=== PATIENT | female | born 1960 | race Caucasian/White ===

== ENCOUNTER 2018-03-09 11:54 | Emergency (ER) | payer SELFPAY ==
[~2018-03-09] VITALS: Ht 167.6 cm; Wt 77.1 kg
[~2018-03-09 11:54] MED LIST: PROM25SU10 PR; PROP1TAB77 PO; TAGAMET; TRM50T PO
--- OUTSIDE RECORDS SUMMARY | 2018-03-09 11:58 | XMS REPORT ---
Author Author SHAYLA SCHULTZ Organization [facility] Address Unknown Care Team Providers Care Mac Developer Name Role Phone SIMON SCHULTZLEY Unavailable PROBLEMS Type Condition ICD9-CM Code IMF50-NP Code Onset Dates Condition Status SNOMED Code Problem Non compliance w medication regimen Z91.14 Active 496306839 Problem Non-compliant behavior R46.89 Active 231379764 Problem Tobacco abuse counseling Z71.6 Active 195149280 Problem Tobacco abuse Z72.0 Active 390088239 Problem Elevated LDL cholesterol level E78.00 Active 717221033 Problem Essential hypertension I10 Active 40286878 Problem Methamphetamine abuse F15.10 Active 950323651 Problem Hep C w/o coma, chronic B18.2 Active 910898722 ALLERGIES No Information ENCOUNTERS Encounter Location Date Diagnosis [facility] [address] [id number] Jan, [facility] [address] [address] Dec, [facility] [address] [id number] Nov, Dental examination Z01.20 [facility] [address] [id number] Oct, Dental examination Z01.20 [facility] [address] [id number] Oct, Dental examination Z01.20 [facility] [address] [address] Oct, [facility] [address] [address] July, Contact dermatitis, unspecified contact dermatitis type, unspecified trigger L25.9 [facility] [id number] [place] [address] 66125- 6167 Jun, Pre-diabetes R73.03 [place] [address] [address]- [address] Jun, Essential hypertension I10 ; Pre-diabetes R73.03 ; Elevated LDL cholesterol level E78.00 ; Hep C w/o coma, chronic B18.2 ; Non-compliant behavior R46.89 ; Methamphetamine abuse F15.10 ; Tobacco abuse Z72.0 ; Tobacco abuse counseling Z71.6 and Non compliance w medication regimen Z91.14 [place] [address] [address]- 9643 Mar, [place] [id number] [place] [address] 73443- 2526 Nov, [facility] [id number] [place] [address]51 -1548 July, Allergic contact dermatitis due to plants, except food L23.7 [place] [address] 60[address]- 0827 July, Essential hypertension I10 ; Pre-diabetes R73.03 and Elevated LDL cholesterol level E78.00 [place] [id number] [place] [address] 59181- 9241 May, [place] [id number] [place] [address] 14170- 6487 Apr, [facility] [id number] [place] [address] 71594- 7538 Mar, History of hypertension Z86.79 ; History of hepatitis Z86.19 ; Substance abuse F19.10 ; Non compliance w medication regimen Z91.14 and Non-compliant behavior R46.89 [place] [id number] [place] [address] 90918- 3048 Feb, Pre-diabetes R73.09 [place] [address] 43304- 7588 Feb, Bacterial conjunctivitis of right eye H10.9 [facility] [id number] [place] [address] 77535- 4698 Jun, Pre-diabetes R73.09 ; History of hepatitis Z86.19 and Substance abuse F19.10 [facility] [id number] [place] [address] 60901- 8120 Jun, [facility] [address] 04780- 5252 Jun, Routine health maintenance Z00.00 [place] [address] 29962- 4135 30 May, 2015 [facility] [id number] [place] [address] 51217- 9052 17 May, 2015 History of hypertension Z86.79 ; History of hepatitis Z86.19 and Illicit drug use F19.90 [facility] [id number] [place] [address] 68162- 9242 10 May, 2015 Routine health maintenance Z00.00 ; History of gestational diabetes Z86.32 ; History of hypertension Z86.79 ; History of hepatitis Z86.19 [address] F19[address]10 [facility] [id number] [place] [id number] Nov, Dental examination V72.2 [facility] [address] [id number] Nov, Encounter for dental examination V72.2 [facility] [id number] [place] [address] 63445- 9045 24 Aug, 2014 Routine gynecological examination V72.31 ; Pap test, as part of routine gynecological examination V76.2 ; Screen for STD (sexually transmitted disease) V74.5 ; Breast cancer screening V76.10 ; Vaginal odor 625.8 and Tobacco abuse 305.1 [facility] [id number] [place] [address] 43634- 4147 16 Aug, 2014 Vaginal discharge 623.5 and Vaginal odor 625.8 [facility] [place] [facility] [address] [id number] [place] [address]- 9795 Aug, [facility] [place] [facility] [address] [id number] [place] [address] 8[address] Jun, [facility] [place] [facility] [address] [facility] [id number] [place] [address]- 8940 Jun, [facility] [place] [facility] [address] [id number] [place] [address] 9585 Mar, [facility] [place] [facility] [address] [id number] [place] [address]- 6775 Mar, [facility] [place] [facility] [address] [id number] [place] [address]- 2103 Oct, [facility] [place] [facility] [address] [id number] [place] [address] 9650 Sep, [facility] [place] [facility] [address] [id number] [place] [address]- 7802 Sep, [facility] [place] [facility] [address] [id number] [place] [address]- 7539 Aug, [facility] [place] [facility] [address] [facility] [id number] [place] [address]- 8047 Aug, [facility] [place] [facility] [address] [id number] [place] [address]- 3758 Aug, [facility] [place] [facility] [address] [facility] [id number] [place] [id number] Aug, [facility] [place] [facility] [address] [id number] [place] [address]- 8415 Aug, [facility] [place] [facility] [address] [facility] [id number] [place] [address]- 0864 Aug, [facility] [place] [facility] [address] [id number] [place] [address]- 7385 Aug, [facility] [place] [facility] [address] [id number] [place] [address]- 7897 17 Aug, 2013 [facility] [address] [id number] [place] [address]- 8138 17 Aug, 2013 [facility] [place] [facility] [address] [id number] [place] [address]- 4159 Aug, [facility] [address] [id number] [place] [address]- 6568 Aug, [facility] [place] [facility] [address] [id number] [place] [address]- 7711 Aug, [facility] [address] [id number] [place] [address]- 4104 Aug, [facility] [place] [facility] [address] [id number] [place] [address]- 7487 Aug, [facility] [place] [facility] [address] [id number] [place] [address]- 1190 July, [facility] [address] [id number] [place] [address]- 5422 July, [facility] [place] [facility] [address] [id number] [place] [address]- 0586 July, [facility] [address] [id number] [place] [address]- 8280 July, [facility] [place] [facility] [address] [id number] [place] [address]- 7525 July, [facility] [place] [facility] [address] [id number] [place] [address]- 0077 Apr, [facility] [place] [facility] [address] [id number] [place] [address]- 2358 Feb, [facility] [place] [facility] [address] [id number] [place] [address]- 3776 Feb, [facility] [place] [facility] [address] [id number] [place] [address]- 3552 Jan, [facility] [address] [facility] [id number] [place] [address]- 0842 Jan, [facility] [address] [facility] [id number] [place] [address]- 4116 Aug, [facility] [address] [facility] [id number] [place] [address]- 8694 Jun, [facility] [address] [facility] [id number] [place] [address]853 Jun, IMMUNIZATIONS No Known Immunizations SOCIAL HISTORY Never Assessed REASON FOR VISIT Requested referral PLAN OF CARE VITAL SIGNS MEDICATIONS Unknown Medications RESULTS No Results PROCEDURES No Known procedures INSTRUCTIONS MEDICATIONS ADMINISTERED No Known Medications MEDICAL (GENERAL) HISTORY Type Description Date Medical History hepatitis A, B, C Medical History anxiety Medical History bipolar disorder Medical History anemia Medical History gestational diabetes Medical History drug abuse Medical History Hyperopia, bilateral Medical History Presbyopia OU Medical History Vitreous floaters of both eyes Medical History Myopia of both eyes Medical History Astigmatism, bilateral Medical History 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
--- OUTSIDE RECORDS SUMMARY | 2018-03-09 11:58 | XMS REPORT ---
Author Author JOHN DUARTE [facility] Address [address] [place] [address] Phone Unavailable Care Team Providers Care Vacuum Spindle Sander Name Role Phone JOHN DUARTE Unavailable Unavailable PROBLEMS Type Condition ICD9-CM Code RLY10-TW Code Onset Dates Condition Status SNOMED Code Problem Non compliance w medication regimen Z91.14 Active 672139275 Problem Non-compliant behavior R46.89 Active 035075818 Problem Tobacco abuse counseling Z71.6 Active 260828472 Problem Tobacco abuse Z72.0 Active 439307241 Problem Elevated LDL cholesterol level E78.00 Active 363197694 Problem Essential hypertension I10 Active 29537732 Problem Methamphetamine abuse F15.10 Active 684983354 Problem Hep C w/o coma, chronic B18.2 Active 910777946 ALLERGIES No Known Allergies ENCOUNTERS Encounter Location Date Diagnosis [facility] [id number] [place] [id number] Nov, [facility] [address] [id number] Oct, Dental examination Z01.20 [facility] [id number] [place] [address] [id number] Oct, Dental examination Z01.20 [facility] [id number] [place] [address] 73531- 8295 Oct, [facility] [id number] [place] [address] 69874 -4791 July, Contact dermatitis, unspecified contact dermatitis type, unspecified trigger L25.9 [facility] [id number] [place] [address] 32525- 0698 Jun, Pre-diabetes R73.03 [facility] [id number] [place] [address] 35888- 6819 Jun, Essential hypertension I10 ; Pre-diabetes R73.03 ; Elevated LDL cholesterol level E78.00 ; Hep C w/o coma, chronic B18.2 ; Non-compliant behavior R46.89 ; Methamphetamine abuse F15.10 ; Tobacco abuse Z72.0 ; Tobacco abuse counseling Z71.6 and Non compliance w medication regimen Z91.14 [facility] [id number] [place] [address] 87652- 3660 Mar, [place] [id number] [place] [address] 37431- 9855 Nov, [facility] [id number] [place] [address] 97289 -5587 July, Allergic contact dermatitis due to plants, except food L23.7 [place] [id number] [place] [address] 41832- 5444 July, Essential hypertension I10 ; Pre-diabetes R73.03 and Elevated LDL cholesterol level E78.00 [place] [id number] [place] [address] 26265- 2863 May, [place] [address] [address]39- 3135 Apr, [facility] [id number] [place] [address] 87041- 3908 Mar, History of hypertension Z86.79 ; History of hepatitis Z86.19 ; Substance abuse F19.10 ; Non compliance w medication regimen Z91.14 and Non-compliant behavior R46.89 [place] [id number] [place] [address] 52461- 7112 Feb, Pre-diabetes R73.[address] [address]- 8886 Feb, Bacterial conjunctivitis of right eye H10.9 [place] [id number] [place] [address] 62067- 3137 Jun, Pre-diabetes R73.09 ; History of hepatitis Z86.19 and Substance abuse F19.10 [facility] [address] [address]- 7660 20 Jun, 2015 [facility] [address] [place] [address] 31725- 5681 18 Jun, 2015 Routine health maintenance Z00.00 [facility] [address] [place] [address] 86708- 0530 30 May, 2015 [facility] [id number] [place] [address] 31355- 5342 17 May, 2015 History of hypertension Z86.79 ; History of hepatitis Z86.19 and Illicit drug use F19.90 [facility] [address] [place] [address] 23962- 4189 10 May, 2015 Routine health maintenance Z00.00 ; History of gestational diabetes Z86.32 ; History of hypertension Z86.79 ; History of hepatitis Z86.19 and Substance abuse F19.10 [facility] [address] [place] [address] [id number] 30 Nov, 2014 Dental examination V72.2 [facility] [id number] [place] [address] [id number] 30 Nov, 2014 Encounter for dental examination V72.2 [facility] [address] [place] [address] 30590- 4992 24 Aug, 2014 Routine gynecological examination V72.31 ; Pap test, as part of routine gynecological examination V76.2 ; Screen for STD (sexually transmitted disease) V74.5 ; Breast cancer screening V76.10 ; Vaginal odor 625.8 and Tobacco abuse 305.1 [facility] [address] [place] [address] 02811- 0133 16 Aug, 2014 Vaginal discharge 623.5 and Vaginal odor 625.8 [facility] [address] [place] [address] 29679- 8795 12 Aug, 2014 [facility] [id number] [place] [address] 29197- 7767 Jun, [facility] [place] [facility] [address] [id number] [place] [address]- 1712 Jun, [facility] [place] [facility] [address] [id number] [place] [address]- 0241 Mar, [facility] [place] [facility] [address] [id number] [place] [address]- 9056 Mar, [facility] [place] [facility] [address] [id number] [place] [address]- 5212 Oct, [facility] [place] [facility] [address] [id number] [place] [address]- 6682 Sep, [facility] [place] [facility] [address] [id number] [place] [address]- 4072 Sep, [facility] [place] [facility] [address] [id number] [place] [address]- 3910 Aug, [facility] [place] [facility] [address] [id number] [place] [address]- 7014 Aug, [facility] [place] [facility] [address] [id number] [place] [address]- 3743 Aug, [facility] [place] [facility] [address] [facility] [id number] [place] [id number] Aug, [facility] [place] [facility] [address] [id number] [place] [address]- 4502 Aug, [facility] [place] [facility] [address] [id number] [address]- 4052 Aug, [facility] [place] [facility] [address] [id number] [place] [address]- 3534 Aug, [facility] [place] [facility] [address] [id number] [place] [address]- 3899 Aug, [facility] [place] [facility] [address] [id number] [place] [address]- 2440 Aug, [facility] [place] [facility] [address] [id number] [place] [address]- 4260 13 Aug, 2013 [facility] [place] [facility] [address] [id number] [place] [address]- 9525 13 Aug, 2013 [facility] [place] [facility] [address] [id number] [place] [address]- 2528 10 Aug, 2013 [facility] [place] [facility] [address] [id number] [place] [address]- 6431 07 Aug, 2013 [facility] [place] [facility] [address] [id number] [place] [address]- 4383 07 Aug, 2013 [facility] [place] [facility] [address] [id number] [place] [address]- 3761 July, [facility] [place] [facility] [address] [id number] [place] [address]- 7190 July, [facility] [place] [facility] [address] [id number] [place] [address]- 0171 July, [facility] [place] [facility] [address] [id number] [place] [address]- 1709 July, [facility] [place] [facility] [address] [id number] [place] [address]- 9434 July, [facility] [place] [facility] [address] [id number] [place] [address]- 5327 Apr, [facility] [place] [facility] [address] [id number] [place] [address]- 3702 Feb, [facility] [place] [facility] [address] [id number] [place] [address]- 7297 Feb, [facility] [place] [facility] [address] [id number] [place] [address]- 1010 Jan, [facility] [place] [facility] [address] [id number] [place] [address]- 7726 Jan, [facility] [place] [facility] [address] [id number] [place] [address]- 3092 05 Aug, 2011 [facility] [address] [facility] [id number] [place] [address]- 0169 Jun, [facility] [address] [facility] [id number], [place] [address]- 5977 Jun, IMMUNIZATIONS No Known Immunizations SOCIAL HISTORY Never Assessed REASON FOR VISIT PROPHY PLAN OF CARE Activity Details Follow Up marisol Reason:restore VITAL SIGNS MEDICATIONS Medication Instructions Dosage Frequency Start Date End Date Duration Status MetFORMIN HCl ER 500 mg Orally twice a day one tablet with meal twice daily 12h 30 Active RESULTS No Results PROCEDURES Procedure Date Ordered Result Body Site COMP ORAL EVALUATION - NEW/EST PT Oct 18, 2017 Periodontal scaling and root Oct 18, 2017 Periodontal scaling and root Oct 18, 2017 Periodontal scaling and root Oct 18, 2017 Periodontal scaling and root Oct 18, 2017 INSTRUCTIONS MEDICATIONS ADMINISTERED No Known Medications MEDICAL [...]
--- OUTSIDE RECORDS SUMMARY | 2018-03-09 11:58 | XMS REPORT ---
Author Author DEANN FOSTER Organization [facility] Address [address] [place] [address] Care Team Providers Care Salon Supervisor Name Role Phone KRISTIN DEANN Unavailable PROBLEMS Type Condition ICD9-CM Code [id number] Code Onset Dates Condition Status SNOMED Code Problem Non compliance w medication regimen Z91.14 Active 180837104 Problem Non-compliant behavior R46.89 Active 423954694 Problem Tobacco abuse counseling Z71.6 Active 578392851 Problem Tobacco abuse Z72.0 Active 663131129 Problem Elevated LDL cholesterol level E78.00 Active 234824287 Problem Essential hypertension I10 Active 29118965 Problem Methamphetamine abuse F15.10 Active 210979105 Problem Hep C w/o coma, chronic B18.2 Active 738371711 ALLERGIES No Information ENCOUNTERS Encounter Location Date Diagnosis [facility] [address] [address] Dec, [facility] [address] [address] Dec, [facility] [address] [id number] Nov, Dental examination Z01.20 [facility] [address] [id number] Oct, Dental examination Z01.20 [facility] [address] [id number] Oct, Dental examination Z01.20 [facility] [address] [address] Oct, [facility] [id number] [place] [address] July, Contact dermatitis, unspecified contact dermatitis type, unspecified trigger L25.9 [facility] [id number] [place] [address] 56807- 3988 Jun, Pre-diabetes R73.03 [facility] [id number] [place] [address] 23557- 3949 Jun, Essential hypertension I10 ; Pre-diabetes R73.03 ; Elevated LDL cholesterol level E78.00 ; Hep C w/o coma, chronic B18.2 ; Non-compliant behavior R46.89 ; Methamphetamine abuse F15.10 ; Tobacco abuse Z72.0 ; Tobacco abuse counseling Z71.6 and Non compliance w medication regimen Z91.14 [place] [address] [address] Mar, [place] [address] [address] Nov, [facility] [address] [address] July, Allergic contact dermatitis due to plants, except food L23.7 [place] [address] [address] July, Essential hypertension I10 ; Pre-diabetes R73.03 and Elevated LDL cholesterol level E78.00 [facility] [id number] [place] [address]- 0077 May, [place] [address] [address] Apr, [facility] [address] [address] Mar, History of hypertension Z86.79 ; History of hepatitis Z86.19 ; Substance abuse F19.10 ; Non compliance w medication regimen Z91.14 and Non-compliant behavior R46.89 [facility] [id number] [place] [address]93- 3854 Feb, Pre-diabetes R73.09 [facility] [id number] [place] [address] 30572- 8711 15 Feb, 2016 Bacterial conjunctivitis of right eye H10.9 [place] [address] [address]- [address] 26 Jun, 2015 Pre-diabetes R73.09 ; History of hepatitis Z86.19 and Substance abuse F19.10 [place] [address] [address]- 7994 20 Jun, 2015 [place] [id number] [place] [address] 58485- 2909 18 Jun, 2015 Routine health maintenance Z00.00 [place] [address] [address] 30 May, 2015 [place] [address] [address]42- 9752 17 May, 2015 History of hypertension Z86.79 ; History of hepatitis Z86.19 and Illicit drug use F19.90 [place] [id number] [place] [address] 83750- 3117 10 May, 2015 Routine health maintenance Z00.00 ; History of gestational diabetes Z86.32 ; History of hypertension Z86.79 ; History of hepatitis Z86.19 and Substance abuse F19.10 [facility] [id number] [place] [id number] Nov, Dental examination V72.2 [facility] [address] [id number] Nov, Encounter for dental examination V72.2 [place] [address] [address] 8[address] Aug, Routine gynecological examination V72.31 ; Pap test, as part of routine gynecological examination V76.2 ; Screen for STD (sexually transmitted disease) V74.5 ; Breast cancer screening V76.10 ; Vaginal odor 625.8 and Tobacco abuse 305.1 [place] [address] [place] [address] 16 Aug, 2014 Vaginal discharge 623.5 and Vaginal odor 625.8 [facility] [place] [facility] [address] [id number] [place] [address] Aug, [facility] [place] [facility] [address] [id number] [place] [address] 57[address] Jun, [facility] [place] [facility] [address] [id number] [place] [address]- 7311 Jun, [facility] [place] [facility] [address] [id number] [place] [address]- 5179 Mar, [facility] [place] [facility] [address] [id number] [place] [address] 7490 Mar, [facility] [place] [facility] [address] [id number] [place] [address] Oct, [facility] [place] [facility] [id number] [place] [address] 08[address] Sep, [facility] [place] [facility] [address] [id number] [place] [address]- 6205 Sep, [facility] [place] [facility] [address] [address] Aug, [facility] [place] [facility] [address] [id number] [place] [address] 8092 Aug, [facility] [place] [facility] [address] [id number] [address] 289[address] Aug, [facility] [place] [facility] [address] [id number] [place] [id number] Aug, [facility] [place] [facility] [address] [facility] [id number] [place] [address]- 8872 Aug, [facility] [place] [facility] [address] [facility] [id number] [place] [address]- 7586 Aug, [facility] [place] [facility] [address] [id number] [place] [address]- 6773 24 Aug, 2013 [facility] [place] [facility] [address] [id number] [place] [address]- 9691 17 Aug, 2013 [facility] [place] [facility] [address] [id number] [place] [address]- 1860 17 Aug, 2013 [facility] [place] [facility] [address] [id number] [place] [address]- 2795 Aug, [facility] [place] [facility] [address] [id number] [place] [address]- 2748 Aug, [facility] [place] [facility] [address] [id number] [place] [address]- 1811 Aug, [facility] [place] [facility] [address] [id number] [place] [address]- 1769 Aug, [facility] [place] [facility] [address] [id number] [place] [address]- 5486 Aug, [facility] [place] [facility] [address] [id number] [place] [address]- 9031 July, [facility] [place] [facility] [address] [id number] [place] [address]- 6989 July, [facility] [place] [facility] [address] [id number] [place] [address]- 7164 July, [facility] [place] [facility] [address] [id number] [place] [address]- 7694 July, [facility] [place] [facility] [address] [id number] [place] [address]- 0867 July, [facility] [place] [facility] [address] [id number] [place] [address]- 3363 Apr, [facility] [place] [facility] [address] [id number] [place] [address]- 4372 Feb, [facility] [place] [facility] [address] [id number] [place] [address]- 7908 Feb, [facility] [place] [facility] [address] [facility] [id number] [place] [address]- 40[address] Jan, [facility] [address] [facility] [id number] [address] 3[address] Jan, [facility] [address] [facility] [id number] [address]- 9[address] Aug, [facility] [address] [facility] [id number] [address]- 12[address] Jun, [facility] [address] [facility] [id number] [address] [address] Jun, IMMUNIZATIONS No Known Immunizations SOCIAL HISTORY Never Assessed REASON FOR VISIT Refill request PLAN OF CARE VITAL SIGNS MEDICATIONS Medication Instructions Dosage Frequency Start Date End Date Duration Status MetFORMIN HCl ER 500 mg Orally twice a day one tablet with meal twice daily 12h 30 Active RESULTS No Results PROCEDURES No Known procedures [...]
--- OUTSIDE RECORDS SUMMARY | 2018-03-09 11:58 | XMS REPORT ---
Author Author ANDRZEJ BOOKER [facility] Address Unknown Care Team Providers Care Water Ski Assembler Name Role Phone ANDRZEJ BOOKER Unavailable PROBLEMS Type Condition ICD9-CM Code OLO50-YB Code Onset Dates Condition Status SNOMED Code Problem Non compliance w medication regimen Z91.14 Active 874173760 Problem Non-compliant behavior R46.89 Active 468643769 Problem Tobacco abuse counseling Z71.6 Active 675544302 Problem Tobacco abuse Z72.0 Active 597626477 Problem Elevated LDL cholesterol level E78.00 Active 265480095 Problem Essential hypertension I10 Active 25113438 Problem Methamphetamine abuse F15.10 Active 835648653 Problem Hep C w/o coma, chronic B18.2 Active 224811869 ALLERGIES No Information ENCOUNTERS Encounter Location Date Diagnosis [facility] [address] [id number] Nov, Dental examination Z01.20 [facility] [address] [id number] Oct, Dental examination Z01.20 [facility] [address] [id number] Oct, Dental examination Z01.20 [facility] [id number] [place] [address] 81116- 1597 Oct, [facility] [id number] [place] [address]129 July, Contact dermatitis, unspecified contact dermatitis type, unspecified trigger L25.9 [facility] [id number] [place] [address] 55454- 6883 Jun, Pre-diabetes R73.03 [facility] [address] [address]- [address] Jun, Essential hypertension I10 ; Pre-diabetes R73.03 ; Elevated LDL cholesterol level E78.00 ; Hep C w/o coma, chronic B18.2 ; Non-compliant behavior R46.89 ; Methamphetamine abuse F15.10 ; Tobacco abuse Z72.0 ; Tobacco abuse counseling Z71.6 and Non compliance w medication regimen Z91.14 [facility] [id number] [place] [address] 6[address]21- 0322 Mar, [place] [address] [address]- [address] Nov, [facility] [address] [address] July, Allergic contact dermatitis due to plants, except food L23.7 [place] [id number] [place] [address] 94478- 7272 July, Essential hypertension I10 ; Pre-diabetes R73.03 and Elevated LDL cholesterol level E78.00 [place] [id number] [place] [address] 78474- 7306 May, [place] [address] [address]- 4899 Apr, [facility] [id number] [place] [address] 57287- 6297 Mar, History of hypertension Z86.79 ; History of hepatitis Z86.19 ; Substance abuse F19.10 ; Non compliance w medication regimen Z91.14 and Non-compliant behavior R46.89 [place] [id number] [place] [address] 82999- 1853 Feb, Pre-diabetes R73.[address] [address]- [address] Feb, Bacterial conjunctivitis of right eye H10.9 [place] [id number] [place] [address] 79312- 3736 Jun, Pre-diabetes R73.09 ; History of hepatitis Z86.19 and Substance abuse F19.10 [facility] [address] [address]- [address] Jun, [facility] [id number] [place] [address] 32446- 2441 18 Jun, 2015 Routine health maintenance Z00.00 [facility] [id number] [place] [address] 00490- 5018 30 May, 2015 [facility] [id number] [place] [address] 77717- 1430 17 May, 2015 History of hypertension Z86.79 ; History of hepatitis Z86.19 and Illicit drug use F19.90 [facility] [id number] [place] [address] 56483- 6956 10 May, 2015 Routine health maintenance Z00.00 ; History of gestational diabetes Z86.32 ; History of hypertension Z86.79 ; History of hepatitis Z86.19 and Substance abuse F19.10 [facility] [id number] [place] [id number] Nov, Dental examination V72.2 [facility] [address] [id number] 30 Nov, 2014 Encounter for dental examination V72.2 [facility] [id number] [place] [address] 25219- 0028 24 Aug, 2014 Routine gynecological examination V72.31 ; Pap test, as part of routine gynecological examination V76.2 ; Screen for STD (sexually transmitted disease) V74.5 ; Breast cancer screening V76.10 ; Vaginal odor 625.8 and Tobacco abuse 305.1 [facility] [id number] [place] [address] 45058- 5859 16 Aug, 2014 Vaginal discharge 623.5 and Vaginal odor 625.8 [place] [id number] [place] [address] 68407- 1447 12 Aug, 2014 [facility] [id number] [place] [address] 53667- 2546 Jun, [facility] [place] [facility] [address] [id number] [place] [address]- 4966 Jun, [facility] [place] [facility] [address] [id number] [place] [address]- 5433 Mar, [facility] [place] [facility] [address] [id number] [place] [address]- 1728 Mar, [facility] [place] [facility] [address] [id number] [place] 4461 Oct, [facility] [place] [facility] [address] [id number] [place] [address]- 3840 Sep, [facility] [place] [facility] [address] [id number] [place] [address]- 3537 Sep, [facility] [place] [facility] [address] [id number] [place] [address]- 9226 Aug, [facility] [place] [facility] [address] [id number] [place] [address]- 1032 Aug, [facility] [place] [facility] [address] [id number] [place] [address]- 6934 Aug, [facility] [place] [facility] [address] [id number] [place] [address] Aug, [facility] [place] [facility] [address] [id number] [place] [address]- 9023 Aug, [facility] [place] [facility] [address] [id number] [place] [address]- 4029 Aug, [facility] [place] [facility] [address] [id number] [place] [address]- 0382 Aug, [facility] [place] [facility] [address] [id number] [place] [address]- 8343 Aug, [facility] [place] [facility] [address] [id number] [place] [address]- 7127 Aug, [facility] [place] [facility] [address] [id number] [place] [address]- 0150 13 Aug, 2013 [facility] [address] [id number] [place] [address]- 5587 13 Aug, 2013 [facility] [place] [facility] [address] [id number] [place] [address]- 4255 10 Aug, 2013 [facility] [place] [facility] [address] [id number] [place] [address]- 1140 07 Aug, 2013 [facility] [place] [facility] [address] [id number] [place] [address]- 6236 Aug, [facility] [place] [facility] [address] [id number] [place] [address]- 9555 July, [facility] [place] [facility] [address] [id number] [place] [address]- 9489 July, [facility] [address] [id number] [place] [address]- 7222 July, [facility] [address] [id number] [place] [address]- 0847 July, [facility] [place] [facility] [address] [id number] [place] [address]- 0797 July, [facility] [address] [id number] [place] [address]- 5225 Apr, [facility] [place] [facility] [address] [id number] [place] [address]- 4449 Feb, [facility] [place] [facility] [address] [id number] [place] [address]- 2414 Feb, [facility] [place] [facility] [address] [id number] [place] [address]- 6599 Jan, [facility] [place] [facility] [address] [id number] [place] [address]- 0529 Jan, [facility] [place] [facility] [address] [id number] [place] [address]- 5622 Aug, [facility] [address] [facility] [id number] [place] [address] 1770 Jun, [facility] [address] [facility] [id number] [place]1 Jun, IMMUNIZATIONS No Known Immunizations SOCIAL HISTORY Never Assessed REASON FOR VISIT Restorative Dr. Booker did not do this treatment plan. Please evaluate to make sure these areas will need restorative. #19 does have a distal overhang that needs to be addressed. PLAN OF CARE VITAL SIGNS MEDICATIONS Unknown Medications RESULTS No Results PROCEDURES Procedure Date Ordered Result Body Site Billing Notes on claim Nov 27, 2017 INSTRUCTIONS MEDICATIONS ADMINISTERED No Known Medications [...]
--- OUTSIDE RECORDS SUMMARY | 2018-03-09 11:59 | XMS REPORT ---
Author YOLI Batista Organization [employer] Address Unknown Phone Unavailable Care Team Providers Care Loader [employer] Dies Name Role Phone YOLI RIVAS CP Unavailable Allergies No Known Allergies Problems Problem Type Condition Code Onset Dates Condition Status Assessment Encounter for dental examination V72.2 Active Problem Encounter for dental examination V72.2 Active Medications No Known Medications Procedures Procedure Coding System Code Date INTRAORL-PERIAPICAL 1 FILM 73180 CPT-4 D0220 Dec 01, 2014 INTRAORL-PERIAPICAL EA ADD FILM CPT-4 D0230 Dec 01, 2014 COMP ORAL EVALUATION - NEW/EST PT CPT-4 D0150 Dec 01, 2014 BITEWINGS - FOUR FILMS CPT-4 D0274 Dec 01, 2014 INTRAORL-PERIAPICAL EA ADD FILM CPT-4 D0230 Dec 01, 2014 PROPHYLAXIS - ADULT CPT-4 D1110 Dec 01, 2014 PANORAMIC FILM SEE ALSO CODE 26975 CPT-4 D0330 Dec 01, 2014 Vital Signs Date/Time: Dec 01, 2014 Blood Pressure Diastolic 86 mmHg Blood Pressure Systolic 123 mmHg Height 66 in Results No Known Results Summary Purpose [employer] Submission
--- OUTSIDE RECORDS SUMMARY | 2018-03-09 11:59 | XMS REPORT ---
Author Author AGARWALMATHIEU Benitez Organization [facility] Address [address] [place] [address] Care Team Providers Care Orthotics Prosthetics Technician Name Role Phone MATHIEU AGARWAL Unavailable PROBLEMS Type Condition ICD9-CM Code [id number] Code Onset Dates Condition Status SNOMED Code Problem Non compliance w medication regimen Z91.14 Active 672971119 Problem Non-compliant behavior R46.89 Active 396832696 Problem Tobacco abuse counseling Z71.6 Active 026867722 Problem Tobacco abuse Z72.0 Active 117416244 Problem Elevated LDL cholesterol level E78.00 Active 456090783 Problem Essential hypertension I10 Active 72553001 Problem Methamphetamine abuse F15.10 Active 411925788 Problem Hep C w/o coma, chronic B18.2 Active 584138301 ALLERGIES No Information ENCOUNTERS Encounter Location Date Diagnosis [facility] [id number] [place] [address] 11652- 7447 Oct, [facility] [id number] [place] [address] 36896 -5980 July, Contact dermatitis, unspecified contact dermatitis type, unspecified trigger L25.9 [facility] [id number] [place] [address] 75532- 5247 Jun, Pre-diabetes R73.03 [facility] [id number] [place] [address] 81628- 0618 Jun, Essential hypertension I10 ; Pre-diabetes R73.03 ; Elevated LDL cholesterol level E78.00 ; Hep C w/o coma, chronic B18.2 ; Non-compliant behavior R46.89 ; Methamphetamine abuse F15.10 ; Tobacco abuse Z72.0 ; Tobacco abuse counseling Z71.6 and Non compliance w medication regimen Z91.14 [facility] [address] 67996- 0500 Mar, [facility] [id number] [place] [address] 47435- 3166 Nov, [facility] [id number] [place] [address] 48378 -8718 July, Allergic contact dermatitis due to plants, except food L23.7 [facility] [id number] [place] [address] 36765- 4507 July, Essential hypertension I10 ; Pre-diabetes R73.03 and Elevated LDL cholesterol level E78.00 [facility] [id number] [place] [address] 13248- 0689 May, [place] [id number] [place] [address] 11036- 5924 Apr, [facility] [id number] [place] [address] 88425- 9294 Mar, History of hypertension Z86.79 ; History of hepatitis Z86.19 ; Substance abuse F19.10 ; Non compliance w medication regimen Z91.14 and Non-compliant behavior R46.89 [place] [id number] [place] [address] 32234- 0836 Feb, Pre-diabetes R73.09 [place] [id number] [place] [address] 50948- 7884 Feb, Bacterial conjunctivitis of right eye H10.9 [facility] [id number] [place] [address] 99426- 5071 Jun, Pre-diabetes R73.09 ; History of hepatitis Z86.19 and Substance abuse F19.10 [place] [address] [place] [address] 97219- 4516 Jun, [place] [id number] [place] [address] 55981- 6022 Jun, Routine health maintenance Z00.00 [place] [id number] [place] [address] 29716326- 3717 30 May, 2015 [facility] [id number] [place] [address] 57065- 5348 17 May, 2015 History of hypertension Z86.79 ; History of hepatitis Z86.19 and Illicit drug use F19.90 [facility] [id number] [place] [address] 20391- 2914 10 May, 2015 Routine health maintenance Z00.00 ; History of gestational diabetes Z86.32 ; History of hypertension Z86.79 ; History of hepatitis Z86.19 and Substance abuse F19.10 [facility] [id number] [place] [address] [id number] Nov, Dental examination V72.2 [facility] [id number] [place] [address] [id number] Nov, Encounter for dental examination V72.2 [place] [id number] [place] [address] 04018- 0007 24 Aug, 2014 Routine gynecological examination V72.31 ; Pap test, as part of routine gynecological examination V76.2 ; Screen for STD (sexually transmitted disease) V74.5 ; Breast cancer screening V76.10 ; Vaginal odor 625.8 and Tobacco abuse 305.1 [place] [address] [place] [address] 04577- 3296 16 Aug, 2014 Vaginal discharge 623.5 and Vaginal odor 625.8 [place] [id number] [place] [address] 58095- 8240 Aug, [place] [id number] [place] [address] 09068- 9001 Jun, [place] [id number] [place] [address] 86960- 1350 Jun, [place] [id number] [place] [address] 85602- 2553 Mar, [facility] [address] 61155- 1132 Mar, [facility] [place] [facility] [address] [id number] [place] [address]- 1199 Oct, [facility] [place] [facility] [address] [id number] [place] [address]207 Sep, [facility] [place] [facility] [address] [id number] [place] [address]- 5724 Sep, [facility] [place] [facility] [address] [id number] [place] [address]- 5343 Aug, [facility] [place] [facility] [address] [id number] [place] [address]- 6675 Aug, [facility] [place] [facility] [address] [id number] [place] [address]- 7155 Aug, [facility] [place] [facility] [address] [facility] [id number] [place] [id number] Aug, [facility] [place] [facility] [address] [id number] [place] [address]- 8278 Aug, [facility] [place] [facility] [address] [id number] [place] [address]- 1674 Aug, [facility] [place] [facility] [address] [id number] [place] [address]- 5470 Aug, [facility] [place] [facility] [address] [id number] [place] [address]- 7858 Aug, [facility] [place] [facility] [address] [id number] [place] [address]- 5773 Aug, [facility] [place] [facility] [address] [id number] [place] [address]- 7744 Aug, [facility] [place] [facility] [address] [id number] [place] [address]- 6461 Aug, [facility] [place] [facility] [address] [id number] [place] [address]- 0079 Aug, [facility] [place] [facility] [address] [address]- 7546 Aug, [facility] [address] [address]- 4124 Aug, [facility] [id number] [address]- 8060 July, [facility] [address] [address]- 1717 July, [facility] [address] [facility] [id number] [address]- 3525 July, [facility] [address] [address]- 9442 July, [facility] [address] [address]- 1636 July, [facility] [address] [address]- 5221 Apr, [facility] [address] [address]- 6791 Feb, [facility] [address] [address]- 4193 Feb, [facility] [address] [address]- 3972 Jan, [facility] [address] [address]- 6874 Jan, [facility] [id number] [address]- 9542 Aug, [facility] [address] [address]- 9223 Jun, [facility] [address] 8776 Jun, IMMUNIZATIONS No Known Immunizations SOCIAL HISTORY Never Assessed REASON FOR VISIT Med Refill---AdaviedRN PLAN OF CARE VITAL SIGNS MEDICATIONS Medication Instructions Dosage Frequency Start Date End Date Duration Status MetFORMIN HCl ER 500 mg Orally Once a day one tablet daily with evening meal 24h 90 days Active RESULTS No Results PROCEDURES No Known [...]
--- OUTSIDE RECORDS SUMMARY | 2018-03-09 11:59 | XMS REPORT ---
Author Author ANDRZEJ BOOKER [facility] Address Unknown Care Team Providers Care Manager Government Name Role Phone ANDRZEJ BOOKER Unavailable PROBLEMS Type Condition ICD9-CM Code ACH33-VY Code Onset Dates Condition Status SNOMED Code Problem Non compliance w medication regimen Z91.14 Active 605456849 Problem Non-compliant behavior R46.89 Active 403113009 Problem Tobacco abuse counseling Z71.6 Active 583092257 Problem Tobacco abuse Z72.0 Active 198559489 Problem Elevated LDL cholesterol level E78.00 Active 801232889 Problem Essential hypertension I10 Active 38081523 Problem Methamphetamine abuse F15.10 Active 866426571 Problem Hep C w/o coma, chronic B18.2 Active 436671493 ALLERGIES No Known Allergies ENCOUNTERS Encounter Location Date Diagnosis [facility] [address] [id number] Nov, [facility] [address] [id number] Oct, Dental examination Z01.20 [facility] [id number] [place] [address] [id number] Oct, Dental examination Z01.20 [facility] [id number] [place] [address] 01120- 0757 Oct, [facility] [id number] [place] [address] 97834 -2901 July, Contact dermatitis, unspecified contact dermatitis type, unspecified trigger L25.9 [facility] [id number] [place] [address] 05132- 2303 Jun, Pre-diabetes R73.03 [facility] [id number] [place] [address] 34806- 8945 Jun, Essential hypertension I10 ; Pre-diabetes R73.03 ; Elevated LDL cholesterol level E78.00 ; Hep C w/o coma, chronic B18.2 ; Non-compliant behavior R46.89 ; Methamphetamine abuse F15.10 ; Tobacco abuse Z72.0 ; Tobacco abuse counseling Z71.6 and Non compliance w medication regimen Z91.14 [facility] [id number] [place] [address] 63970- 0065 Mar, [facility] [id number] [place] [address] 56230- 4399 Nov, [facility] [id number] [place] [address] 51725 -1400 July, Allergic contact dermatitis due to plants, except food L23.7 [place] [id number] [place] [address] 90405- 0863 July, Essential hypertension I10 ; Pre-diabetes R73.03 and Elevated LDL cholesterol level E78.00 [place] [id number] [place] [address] 39060- 5316 May, [place] [address] 76642- 5867 Apr, [facility] [id number] [place] [address] 89921- 0100 Mar, History of hypertension Z86.79 ; History of hepatitis Z86.19 ; Substance abuse F19.10 ; Non compliance w medication regimen Z91.14 and Non-compliant behavior R46.89 [place] [id number] [place] [address] 22244- 2786 Feb, Pre-diabetes R73.[address] 26080- 8355 Feb, Bacterial conjunctivitis of right eye H10.9 [id number] [place] [address] 74560- 5543 Jun, Pre-diabetes R73.09 ; History of hepatitis Z86.19 and Substance abuse F19.10 [facility] [address] [address]- 3336 20 Jun, 2015 [facility] [id number] [place] [address] 60087- 6616 18 Jun, 2015 Routine health maintenance Z00.00 [facility] [id number] [place] [address] 33044- 9692 30 May, 2015 [facility] [id number] [place] [address] 74914- 7792 17 May, 2015 History of hypertension Z86.79 ; History of hepatitis Z86.19 and Illicit drug use F19.90 [facility] [id number] [place] [address] 94267- 7222 10 May, 2015 Routine health maintenance Z00.00 ; History of gestational diabetes Z86.32 ; History of hypertension Z86.79 ; History of hepatitis Z86.19 and Substance abuse F19.10 [facility] [id number] [place] [address] [id number] 30 Nov, 2014 Dental examination V72.2 [facility] [id number] [place] [address] [id number] 30 Nov, 2014 Encounter for dental examination V72.2 [facility] [id number] [place] [address] 29783- 6265 24 Aug, 2014 Routine gynecological examination V72.31 ; Pap test, as part of routine gynecological examination V76.2 ; Screen for STD (sexually transmitted disease) V74.5 ; Breast cancer screening V76.10 ; Vaginal odor 625.8 and Tobacco abuse 305.1 [facility] [id number] [place] [address] 85256- 2323 16 Aug, 2014 Vaginal discharge 623.5 and Vaginal odor 625.8 [facility] [address] [place] [address] 47826- 5683 12 Aug, 2014 [facility] [id number] [place] [address] 00360- 3993 Jun, [facility] [place] [facility] [address] [id number] [place] [address]- 4274 Jun, [facility] [place] [facility] [address] [id number] [place] [address]- 4309 Mar, [facility] [place] [facility] [address] [id number] [place] [address]- 6976 Mar, [facility] [place] [facility] [address] [id number] [place] [address]- 9521 Oct, [facility] [place] [facility] [address] [id number] [place] [address]- 7490 Sep, [facility] [place] [facility] [address] [id number] [place] [address]- 8709 Sep, [facility] [place] [facility] [address] [id number] [place] [address]- 9947 Aug, [facility] [place] [facility] [address] [id number] [place] [address]- 8375 Aug, [facility] [place] [facility] [address] [id number] [place] [address]- 1097 Aug, [facility] [place] [facility] [address] [id number] [id number] Aug, [facility] [place] [facility] [address] [id number] [place] [address]- 3222 Aug, [facility] [place] [facility] [address] [id number], [place] [address]- 9421 Aug, [facility] [place] [facility] [address] [id number] [place] [address]- 7787 Aug, [facility] [place] [facility] [address] [id number] [place] [address]- 6987 Aug, [facility] [place] [facility] [address] [id number] [place] 9453 Aug, [facility] [place] [facility] [address] [id number] [place] [address]- 2820 13 Aug, 2013 [facility] [place] [facility] [address] [id number] [place] [address]- 8685 13 Aug, 2013 [facility] [place] [facility] [address] [id number] [place] [address]- 7472 10 Aug, 2013 [facility] [place] [facility] [address] [id number] [place] [address]- 3932 07 Aug, 2013 [facility] [place] [facility] [address] [id number] [place] [address]- 0209 07 Aug, 2013 [facility] [place] [facility] [address] [id number] [place] [address]- 2874 July, [facility] [place] [facility] [address] [id number] [place] [address]- 0670 July, [facility] [place] [facility] [address] [id number] [place] [address]- 8987 July, [facility] [place] [facility] [address] [id number] [place] [address]- 7345 July, [facility] [place] [facility] [address] [id number] [place] [address]- 5132 July, [facility] [place] [facility] [address] [id number] [place] [address]- 6236 Apr, [facility] [place] [facility] [address] [id number] [place] [address]- 9522 Feb, [facility] [place] [facility] [address] [id number] [place] [address]- 1344 Feb, [facility] [place] [facility] [address] [id number] [place] [address]- 8869 Jan, [facility] [place] [facility] [address] [id number] [place] [address]- 7770 Jan, [facility] [place] [facility] [address] [id number] [place] [address]- 0330 Aug, [facility] [place] [facility] [address] [facility] [id number] [place] [address]- 5142 Jun, [facility] [address] [facility] [id number], [place] [address]- 6920 Jun, IMMUNIZATIONS No Known Immunizations SOCIAL HISTORY Never Assessed REASON FOR VISIT ROSY PLAN OF CARE Activity Details Follow Up prn Reason:hygiene VITAL SIGNS Height 66 in 2017-10-18 Blood pressure systolic 132 mmHg 2017-10-18 Blood pressure diastolic 82 mmHg 2017-10-18 MEDICATIONS Medication Instructions Dosage Frequency Start Date End Date Duration Status MetFORMIN HCl ER 500 mg Orally twice a day one tablet with meal twice daily 12h 30 Active RESULTS No Results PROCEDURES Procedure Date Ordered Result Body Site LTD ORAL EVALUATION - PROBLEM FOCUS Oct 18, 2017 INTRAORL-PERIAPICAL 1 FILM 12804 Oct 18, 2017 Dental no charge Oct 18, 2017 BITEWINGS - FOUR FILMS Oct 18, 2017 Billing Notes on claim Oct 18, 2017 INTRAORL-PERIAPICAL EA ADD FILM Oct 18, 2017 INTRAORL-PERIAPICAL EA ADD FILM Oct 18, 2017 INTRAORL-PERIAPICAL EA ADD FILM Dec 01, 2014 INTRAORL-PERIAPICAL EA ADD FILM Oct 18, 2017 INSTRUCTIONS MEDICATIONS ADMINISTERED No [...]
--- OUTSIDE RECORDS SUMMARY | 2018-03-09 11:59 | XMS REPORT ---
Author Author AGARWALMATHIEU Benitez Organization [facility] Address [address] [place] [address] Care Team Providers Care Shiftman Name Role Phone MATHIEU AGARWAL Unavailable PROBLEMS Type Condition ICD9-CM Code VPP41-LI Code Onset Dates Condition Status SNOMED Code Problem Non compliance w medication regimen Z91.14 Active 717323921 Problem Non-compliant behavior R46.89 Active 621933161 Problem Tobacco abuse counseling Z71.6 Active 344051392 Problem Tobacco abuse Z72.0 Active 197856606 Problem Elevated LDL cholesterol level E78.00 Active 814820548 Problem Essential hypertension I10 Active 41536370 Problem Methamphetamine abuse F15.10 Active 728053884 Problem Hep C w/o coma, chronic B18.2 Active 441213630 ALLERGIES No Information ENCOUNTERS Encounter Location Date Diagnosis [facility] [address] [address] Nov, [facility] [address] [id number] Nov, [facility] [address] [id number] Oct, Dental examination Z01.20 [facility] [address] [id number] Oct, Dental examination Z01.20 [facility] [address] [address] Oct, [facility] [address] [address] July, Contact dermatitis, unspecified contact dermatitis type, unspecified trigger L25.9 [facility] [address] [address] Jun, Pre-diabetes R73.03 [facility] [id number] [place] [address]35- 4847 Jun, Essential hypertension I10 ; Pre-diabetes R73.03 ; Elevated LDL cholesterol level E78.00 ; Hep C w/o coma, chronic B18.2 ; Non-compliant behavior R46.89 ; Methamphetamine abuse F15.10 ; Tobacco abuse Z72.0 ; Tobacco abuse counseling Z71.6 and Non compliance w medication regimen Z91.14 [place] [address] [address] Mar, [place] [address] [address] Nov, [facility] [address] [address] July, Allergic contact dermatitis due to plants, except food L23.[address] [address] July, Essential hypertension I10 ; Pre-diabetes R73.03 and Elevated LDL cholesterol level E78.00 [place] [address] [address] May, [place] [address] [address] Apr, [place] [address] [address] Mar, History of hypertension Z86.79 ; History of hepatitis Z86.19 ; Substance abuse F19.10 ; Non compliance w medication regimen Z91.14 and Non-compliant behavior R46.89 [place] [id number] [place] [address]28- 6[address] Feb, Pre-diabetes R73.09 [place] [address] [address] Feb, Bacterial conjunctivitis of right eye H10.9 [facility] [id number] [place] [address] 91988- 9[address] 26 Jun, 2015 Pre-diabetes R73.09 ; History of hepatitis Z86.19 and Substance abuse F19.10 [facility] [address] [place] [address] 93562- 5686 20 Jun, 2015 [facility] [id number] [place] [address] 93853- 5175 18 Jun, 2015 Routine health maintenance Z00.00 [facility] [id number] [place] [address]644- 9474 30 May, 2015 [place] [address] [address]- [address] 17 May, 2015 History of hypertension Z86.79 ; History of hepatitis Z86.19 and Illicit drug use F19.90 [place] [id number] [place] [address]25- 9602 10 May, 2015 Routine health maintenance Z00.00 ; History of gestational diabetes Z86.32 ; History of hypertension Z86.79 ; History of hepatitis Z86.19 and Substance abuse F19.10 [facility] [id number] [place] [id number] 30 Nov, 2014 Dental examination V72.2 [facility] [id number] [place] [id number] 30 Nov, 2014 Encounter for dental examination V72.2 [place] [id number] [place] [address] 81427- 9[address] 24 Aug, 2014 Routine gynecological examination V72.31 ; Pap test, as part of routine gynecological examination V76.2 ; Screen for STD (sexually transmitted disease) V74.5 ; Breast cancer screening V76.10 ; Vaginal odor 625.8 and Tobacco abuse 305.1 [place] [address] [place] [address] 6[address]78- 0755 16 Aug, 2014 Vaginal discharge 623.5 and Vaginal odor 625.8 [place] [address] [place] [address]- [address] 12 Aug, 2014 [facility] [place] [facility] [address] [id number] [place] [address]- 4036 14 Jun, 2014 [facility] [place] [facility] [address] [id number] [place] [address]- 5874 Jun, [facility] [place] [facility] [address] [id number] [place] [address]- 9390 Mar, [facility] [place] [facility] [address] [id number] [place] [address]- 3068 Mar, [facility] [place] [facility] [address] [id number] [place] [address]- 8279 Oct, [facility] [place] [facility] [address] [id number] [place] [address]- 0134 Sep, [facility] [place] [facility] [address] [id number] [place] [address]- 3683 Sep, [facility] [place] [facility] [address] [id number] [place] [address]- 3217 Aug, [facility] [place] [facility] [address] [id number] [place] [address]- 3357 Aug, [facility] [place] [facility] [address] [facility] [id number] [place] [address]- 7361 Aug, [facility] [place] [facility] [address] [facility] [id number] [place] [id number] Aug, [facility] [place] [facility] [address] [id number] [place] [address]- 2241 Aug, [facility] [place] [facility] [address] [id number] [place] [address]- 1904 Aug, [facility] [place] [facility] [address] [id number] [place] [address]- 9983 Aug, [facility] [place] [facility] [address] [facility] [id number] [place] [address]- 4406 Aug, [facility] [place] [facility] [address] [id number] [place] [address]- 7341 17 Aug, 2013 [facility] [place] [facility] [address] [id number] [place] [address]- 6174 Aug, [facility] [place] [facility] [address] [id number] [place] [address]- 0873 Aug, [facility] [place] [facility] [address] [id number] [place] [address]- 0200 Aug, [facility] [place] [facility] [address] [id number] [place] [address]- 8136 Aug, [facility] [place] [facility] [address] [id number] [place] [address]- 5017 Aug, [facility] [place] [facility] [address] [id number] [place] [address]- 5459 July, [facility] [place] [facility] [address] [id number] [place] [address]- 1108 July, [facility] [place] [facility] [address] [id number] [place] [address]- 7754 July, [facility] [place] [facility] [address] [id number] [place] [address]- 2918 July, [facility] [place] [facility] [address] [id number] [place] [address]- 8082 July, [facility] [place] [facility] [address] [id number] [place] [address]- 0951 Apr, [facility] [place] [facility] [address] [id number] [place] [address]- 7874 Feb, [facility] [place] [facility] [address] [id number] [place] [address]- 7733 Feb, [facility] [place] [facility] [address] [id number] [place] [address]- 2242 Jan, [facility] [place] [facility] [address] [id number] [place] [address]- 6899 Jan, [facility] [address] [facility] [id number] [place] [address]- 6586 Aug, [facility] [address] [facility] [id number] [place] [address]- 5216 Jun, [facility] [address] [facility] [id number] [place] [address]- [address] Jun, IMMUNIZATIONS No Known Immunizations SOCIAL HISTORY [...]
--- OUTSIDE RECORDS SUMMARY | 2018-03-09 11:59 | XMS REPORT ---
Author Author STEFANO MATHIEU Organization [facility] Address [address] [place] [address] Care Team Providers Care Corporate Logistics Manager Name Role Phone AGARWAL MATHIEU Unavailable PROBLEMS Type Condition ICD9-CM Code GEG16-TX Code Onset Dates Condition Status SNOMED Code Problem Essential hypertension I10 Active 02367575 Problem Non compliance w medication regimen Z91.14 Active 277056963 Problem Non-compliant behavior R46.89 Active 422577429 Problem Substance abuse F19.10 Active 16835044 ALLERGIES No Known Allergies SOCIAL HISTORY Never Assessed PLAN OF CARE Activity Details Follow Up 3 Months Reason:/CHM VITAL SIGNS Height 66 in 2016-07-03 Weight 156.9 lbs 2016-07-03 Temperature 98.3 degrees Fahrenheit 2016-07-03 Heart Rate 77 bpm 2016-07-03 Respiratory Rate 18 2016-07-03 BMI 25.32 kg/m2 2016-07-03 Blood pressure systolic 131 mmHg 2016-07-03 Blood pressure diastolic 77 mmHg 2016-07-03 MEDICATIONS Medication Instructions Dosage Frequency Start Date End Date Duration Status MetFORMIN HCl ER 500 MG Orally twice a day one tablet with meal twice daily 12h 30 Active RESULTS No Results PROCEDURES No Known procedures IMMUNIZATIONS No Known Immunizations MEDICAL (GENERAL) HISTORY Type Description Date Medical [...]
--- OUTSIDE RECORDS SUMMARY | 2018-03-09 11:59 | XMS REPORT ---
Author Author AGARWALMATHIEU Benitez Organization [facility] Address [address] [place] [address] Care Team Providers Care Nutrition Worker Name Role Phone MATHIEU AGARWAL Unavailable PROBLEMS Type Condition ICD9-CM Code QJR46-XV Code Onset Dates Condition Status SNOMED Code Problem Non compliance w medication regimen Z91.14 Active 637828049 Problem Non-compliant behavior R46.89 Active 164852391 Problem Tobacco abuse counseling Z71.6 Active 144117435 Problem Tobacco abuse Z72.0 Active 950026045 Problem Elevated LDL cholesterol level E78.00 Active 138012991 Problem Essential hypertension I10 Active 21276417 Problem Methamphetamine abuse F15.10 Active 043249599 Problem Hep C w/o coma, chronic B18.2 Active 790365342 ALLERGIES No Known Allergies ENCOUNTERS Encounter Location Date Diagnosis [facility] [id number] [place] [address]- [address] Oct, [facility] [id number] [place] [address] July, Contact dermatitis, unspecified contact dermatitis type, unspecified trigger L25.9 [facility] [id number] [place] [address] 89605- 6763 Jun, Pre-diabetes R73.03 [facility] [id number] [place] [address] 42352- 8889 Jun, Essential hypertension I10 ; Pre-diabetes R73.03 ; Elevated LDL cholesterol level E78.00 ; Hep C w/o coma, chronic B18.2 ; Non-compliant behavior R46.89 ; Methamphetamine abuse F15.10 ; Tobacco abuse Z72.0 ; Tobacco abuse counseling Z71.6 and Non compliance w medication regimen Z91.14 [facility] [address] [place] [address]- 1132 Mar, [facility] [id number] [place] [address] 79228- 9320 Nov, [facility] [id number] [place] [address] July, Allergic contact dermatitis due to plants, except food L23.7 [facility] [id number] [place] [address]20- 5950 July, Essential hypertension I10 ; Pre-diabetes R73.03 and Elevated LDL cholesterol level E78.00 [facility] [id number] [place] [address] 09932- 7802 May, [place] [id number] [place] [address] 73734- 0334 Apr, [facility] [id number] [place] [address] 65167- 0080 Mar, History of hypertension Z86.79 ; History of hepatitis Z86.19 ; Substance abuse F19.10 ; Non compliance w medication regimen Z91.14 and Non-compliant behavior R46.89 [place] [id number] [place] [address] 00855- 2897 Feb, Pre-diabetes R73.09 [place] [address] [address] [id number] [place] [address] 91919- 0645 Feb, Bacterial conjunctivitis of right eye H10.9 [place] [id number] [place] [address] 13157- 9843 Jun, Pre-diabetes R73.09 ; History of hepatitis Z86.19 and Substance abuse F19.10 [place] [id number] [place] [address] 30269- 4783 Jun, [place] [id number] [place] [address] 31165- 1855 Jun, Routine health maintenance Z00.00 [place] [id number] [place] [address] 70578- 4938 30 May, 2015 [facility] [id number] [place] [address] 35638- 2097 17 May, 2015 History of hypertension Z86.79 ; History of hepatitis Z86.19 and Illicit drug use F19.90 [facility] [id number] [place] [address] 53401- 7225 10 May, 2015 Routine health maintenance Z00.00 ; History of gestational diabetes Z86.32 ; History of hypertension Z86.79 ; History of hepatitis Z86.19 and Substance abuse F19.10 [facility] [address] [id number] Nov, Dental examination V72.2 [facility] [address] [place] [id number] [place] [address] [id number] Nov, Encounter for dental examination V72.2 [place] [id number] [place] [address] 97800- 2221 24 Aug, 2014 Routine gynecological examination V72.31 ; Pap test, as part of routine gynecological examination V76.2 ; Screen for STD (sexually transmitted disease) V74.5 ; Breast cancer screening V76.10 ; Vaginal odor 625.8 and Tobacco abuse 305.1 [place] [id number] [place] [address] 54674- 1749 16 Aug, 2014 Vaginal discharge 623.5 and Vaginal odor 625.8 [place] [id number] [place] [address] 31727- 5672 Aug, [place] [id number] [place] [address] 64212- 2653 Jun, [place] [address] [address]- 8170 Jun, [place] [address] [id number] [place] [address] 40466- 4077 Mar, [place] [address] 7[address]- 4810 Mar, [facility] [place] [facility] [address] [id number] [place] [address]- 5683 Oct, [facility] [place] [facility] [address] [id number] [place] [address] Sep, [facility] [place] [facility] [address] [id number] [place] [address]- 6871 Sep, [facility] [place] [facility] [address] [id number] [place] [address]- 3593 Aug, [facility] [place] [facility] [address] [id number] [place] [address]- 3766 Aug, [facility] [place] [facility] [address] [id number] [place] [address]- 6689 Aug, [facility] [place] [facility] [address] [facility] [id number] [place] [id number] Aug, [facility] [place] [facility] [address] [id number] [place] [address]- 8777 Aug, [facility] [place] [facility] [address] [id number] [place] [address]- 9056 Aug, [facility] [place] [facility] [address] [id number] [place] [address]- 9588 Aug, [facility] [place] [facility] [address] [id number] [place] [address]- 7584 Aug, [facility] [place] [facility] [address] [id number] [place] [address]- 9509 Aug, [facility] [place] [facility] [address] [id number] [place] [address]- 4713 Aug, [facility] [place] [facility] [address] [id number] [place] [address]- 3485 Aug, [facility] [place] [facility] [address] [id number] [place] [address]- 2892 Aug, [facility] [place] [facility] [address] [facility] [id number] [place] [address]- 2546 Aug, [facility] [address] [facility] [id number] [place] [address]- 0376 Aug, [facility] [address] [facility] [id number] [place] [address]- 2416 July, [facility] [address] [facility] [id number] [place] [address]- 9596 July, [facility] [address] [facility] [id number] [place] [address]- 4848 July, [facility] [address] [facility] [id number] [place] [address]- 9679 July, [facility] [address] [facility] [id number] [place] [address]- 5536 July, [facility] [address] [place] [address]- 7932 Apr, [facility] [address] [facility] [id number] [place] [address]- 8333 Feb, [facility] [address] [place] [id number] [place] [address]- 0433 Feb, [facility] [address] [id number] [address] Jan, [facility] [address] [id number] [address]- 9261 Jan, [facility] [address] [facility] [id number] [address]- 4753 Aug, [facility] [address] [facility] [id number], [place] [address]- 1462 Jun, [facility] [address] [facility] [id number], [place] [address]- 6006 Jun, IMMUNIZATIONS No Known Immunizations SOCIAL HISTORY Never Assessed REASON FOR VISIT BP and DM follow up. KLaird, RN PLAN OF CARE Activity Details Follow Up 3 Months, prn Reason:CHM/ Future/Pending Procedure ROUTINE VENIPUNCTURE VITAL SIGNS Height 66 in 2017-06-10 Weight 168 lbs 2017-06-10 Temperature 97.8 degrees Fahrenheit 2017-06-10 Heart Rate 80 bpm 2017-06-10 Respiratory Rate 20 2017-06-10 BMI 27.11 kg/m2 2017-06-10 Blood pressure systolic 130 mmHg 2017-06-10 Blood pressure diastolic 82 mmHg 2017-06-10 MEDICATIONS Medication Instructions Dosage Frequency Start Date End Date Duration Status MetFORMIN HCl ER 500 mg Orally Once a day one tablet daily with evening meal 24h 90 days Active RESULTS No Results PROCEDURES Procedure Date Ordered Result Body Site GLYCATED HEMOGLOBIN TEST June 10, 2017 COMPLETE CBC W/AUTO DIFF WBC June 10, 2017 VENIPUNCT, ROUTINE* June 10, 2017 ASSAY THYROID STIM HORMONE June 10, 2017 COMPREHEN METABOLIC PANEL June 10, 2017 LIPID PANEL June 10, 2017 INSTRUCTIONS MEDICATIONS ADMINISTERED No Known Medications [...]
--- OUTSIDE RECORDS SUMMARY | 2018-03-09 11:59 | XMS REPORT ---
Author Author BETSEY ISLAS [facility] Address [address] [place] [address] Care Team Providers Care Slitting Machine Operator Helper Name Role Phone BETSEY ISLAS Unavailable PROBLEMS Type Condition ICD9-CM Code XHH22-HS Code Onset Dates Condition Status SNOMED Code Problem Non compliance w medication regimen Z91.14 Active 138397654 Problem Non-compliant behavior R46.89 Active 193706272 Problem Tobacco abuse counseling Z71.6 Active 298652190 Problem Tobacco abuse Z72.0 Active 026471144 Problem Elevated LDL cholesterol level E78.00 Active 915053405 Problem Essential hypertension I10 Active 92438156 Problem Methamphetamine abuse F15.10 Active 501242919 Problem Hep C w/o coma, chronic B18.2 Active 715327823 ALLERGIES No Known Allergies ENCOUNTERS Encounter Location Date Diagnosis [facility] [address] [id number] Nov, [facility] [address] [address] Nov, [facility] [address] [id number] Oct, [facility] [address] [id number] Oct, Dental examination Z01.20 [facility] [id number] [place] [address] 34909- 6111 Oct, [facility] [address] [address] July, Contact dermatitis, unspecified contact dermatitis type, unspecified trigger L25.9 [facility] [address] [address]186- 2084 Jun, Pre-diabetes R73.03 [facility] [id number] [place] [address] 24316- 4006 Jun, Essential hypertension I10 ; Pre-diabetes R73.03 ; Elevated LDL cholesterol level E78.00 ; Hep C w/o coma, chronic B18.2 ; Non-compliant behavior R46.89 ; Methamphetamine abuse F15.10 ; Tobacco abuse Z72.0 ; Tobacco abuse counseling Z71.6 and Non compliance w medication regimen Z91.14 [place] [id number] [place] [address] 01743- 4246 Mar, [place] [address] [address]- 9415 Nov, [facility] [id number] [place] [address] 74558 -6758 July, Allergic contact dermatitis due to plants, except food L23.7 [place] [id number] [place] [address] 58517- 1166 July, Essential hypertension I10 ; Pre-diabetes R73.03 and Elevated LDL cholesterol level E78.00 [place] [id number] [place] [address] 82259- 8554 May, [place] [id number] [place] [address] 66158- 9147 Apr, [place] [id number] [place] [address] 90272- 8385 Mar, History of hypertension Z86.79 ; History of hepatitis Z86.19 ; Substance abuse F19.10 ; Non compliance w medication regimen Z91.14 and Non-compliant behavior R46.89 [place] [id number] [place] [address] 60983- 6706 Feb, Pre-diabetes R73.09 [place] [id number] [place] [address] 23236- 6038 Feb, Bacterial conjunctivitis of right eye H10.9 [facility] [address] [place] [address] 38097- 5878 26 Jun, 2015 Pre-diabetes R73.09 ; History of hepatitis Z86.19 and Substance abuse F19.10 [facility] [address] [address] 0[address] 20 Jun, 2015 [facility] [id number] [place] [address] 15948- 1688 18 Jun, 2015 Routine health maintenance Z00.00 [place] [id number] [place] [address] 68800- 5800 30 May, 2015 [place] [id number] [place] [address] 98171- 5464 17 May, 2015 History of hypertension Z86.79 ; History of hepatitis Z86.19 and Illicit drug use F19.90 [place] [id number] [place] [address] 10001- 9889 10 May, 2015 Routine health maintenance Z00.00 ; History of gestational diabetes Z86.32 ; History of hypertension Z86.79 ; History of hepatitis Z86.19 and Substance abuse F19.10 [facility] [id number] [place] [address] [id number] Nov, Dental examination V72.2 [facility] [id number] [place] [address] [id number] 30 Nov, 2014 Encounter for dental examination V72.2 [place] [address] [place] [address] 78492- 9163 24 Aug, 2014 Routine gynecological examination V72.31 ; Pap test, as part of routine gynecological examination V76.2 ; Screen for STD (sexually transmitted disease) V74.5 ; Breast cancer screening V76.10 ; Vaginal odor 625.8 and Tobacco abuse 305.1 [place] [address] [place] [address] 45695- 4467 16 Aug, 2014 Vaginal discharge 623.5 and Vaginal odor 625.8 [place] [id number] [place] [address] Aug, [facility] [place] [facility] [address] [id number] [place] [address]- 0179 Jun, [facility] [place] [facility] [address] [id number] [place] [address]- 0686 Jun, [facility] [address] [id number] [place] [address]- 6752 Mar, [facility] [place] [facility] [address] [id number] [place] [address]- 0712 Mar, [facility] [place] [facility] [address] [id number] [place] [address]- 4138 Oct, [facility] [place] [facility] [address] [id number] [place] [address]- 9538 Sep, [facility] [place] [facility] [address] [id number] [place] [address]- 0633 Sep, [facility] [place] [facility] [address] [id number] [place] [address]- 2428 Aug, [facility] [place] [facility] [address] [id number] [place] [address]- 1558 Aug, [facility] [place] [facility] [address] [facility] [id number] [place] [address]- 5934 Aug, [facility] [place] [facility] [address] [facility] [id number] [place] [id number] Aug, [facility] [place] [facility] [address] [id number] [place] [address]- 0044 Aug, [facility] [place] [facility] [address] [id number] [place] [address]- 2614 Aug, [facility] [place] [facility] [address] [id number] [place] [address]- 7691 Aug, [facility] [place] [facility] [address] [id number] [place] [address]- 0113 Aug, [facility] [place] [facility] [address] [id number] [place] [address]- 7380 17 Aug, 2013 [facility] [place] [facility] [address] [id number] [place] [address]- 0768 Aug, [facility] [place] [facility] [address] [id number] [place] [address]- 7948 Aug, [facility] [place] [facility] [address] [id number] [place] [address]- 2041 Aug, [facility] [place] [facility] [address] [id number] [place] [address]- 1699 Aug, [facility] [place] [facility] [address] [id number] [place] [address]- 8702 Aug, [facility] [place] [facility] [address] [id number] [place] [address]- 6906 July, [facility] [place] [facility] [address] [id number] [place] [address]- 0004 July, [facility] [place] [facility] [address] [id number] [place] [address]- 3122 July, [facility] [place] [facility] [address] [id number] [place] [address]- 0592 July, [facility] [place] [facility] [address] [id number] [place] [address]- 6167 July, [facility] [place] [facility] [address] [id number] [place] [address]- 1104 Apr, [facility] [place] [facility] [address] [id number] [place] [address]- 2568 Feb, [facility] [place] [facility] [address] [id number] [place] [address]- 3880 Feb, [facility] [place] [facility] [address] [id number] [place] [address]- 9787 Jan, [facility] [place] [facility] [address] [id number] [place] [address]- 2546 Jan, [facility] [address] [facility] [id number] [place] [address]- 2546 Aug, [facility] [address] [facility] [id number] [address]- 2546 Jun, [facility] [address] [facility] [id number] [place] [address]- 2546 Jun, IMMUNIZATIONS Vaccine Route Administration Date Status DEXAMETHASONE 4MG/ML (PER 1 MG) IM Intramuscular July 24, 2017 Administered DEPO MEDROL 40 MG/ML IM Intramuscular July 24, 2017 Administered SOCIAL HISTORY Never Assessed REASON FOR VISIT poison pedro pablo Pt c/o possible poison pedro pablo contact in vagina DAGO Shaw PLAN OF CARE Activity Details Follow Up prn Reason: VITAL SIGNS Height 66 in 2017-07-24 Weight 169.8 lbs 2017-07-24 Temperature 97.6 degrees Fahrenheit 2017-07-24 Heart Rate 84 bpm 2017-07-24 Respiratory Rate 20 2017-07-24 BMI 27.40 kg/m2 2017-07-24 Blood pressure systolic 132 mmHg 2017-07-24 Blood pressure diastolic 68 mmHg 2017-07-24 MEDICATIONS Medication Instructions Dosage Frequency Start Date End Date Duration Status MetFORMIN HCl ER 500 MG Orally twice a day one tablet with meal twice daily 12h 30 Active RESULTS No Results PROCEDURES Procedure Date Ordered Result Body Site DEPO MEDROL 40 MG/ML July 24, 2017 DEXAMETHASONE 4MG/ML (PER 1 MG) July 24, 2017 THER/PROPH/DIAG INJ, SC/IM July 24, 2017 INSTRUCTIONS MEDICATIONS ADMINISTERED No Known Medications [...]
--- OUTSIDE RECORDS SUMMARY | 2018-03-09 11:59 | XMS REPORT ---
Author Author VALE BUTCHER Organization [facility] Address [address] [place] [address] Care Team Providers Care Renovation Plant Supervisor Name Role Phone VALE BUTCHER Unavailable PROBLEMS Type Condition ICD9-CM Code AGN81-SG Code Onset Dates Condition Status SNOMED Code Problem Essential hypertension I10 Active 01505181 Problem Non compliance w medication regimen Z91.14 Active 124591327 Problem Non-compliant behavior R46.89 Active 476247848 Problem Substance abuse F19.10 Active 05068991 ALLERGIES Substance Reaction Event Type Date Status N.K.D.A. Unknown Non Drug Allergy Feb, Unknown SOCIAL HISTORY No smoking Hx information available PLAN OF CARE Activity Details Follow Up 1 Week if not improving with Arellano Reason: VITAL SIGNS Height 66 in 2016-02-16 Weight 166.3 lbs 2016-02-16 Temperature 97.8 degrees Fahrenheit 2016-02-16 Heart Rate 77 bpm 2016-02-16 Respiratory Rate 20 2016-02-16 BMI 26.84 kg/m2 2016-02-16 Blood pressure systolic 122 mmHg 2016-02-16 Blood pressure diastolic 76 mmHg 2016-02-16 MEDICATIONS Medication Instructions Dosage Frequency Start Date End Date Duration Status MetFORMIN HCl ER 500 MG Orally twice a day 1 tablet with evening meal x 7 days then one tablet with meal twice daily 12h 20 Jun, 2015 Active Polytrim 74035-9.1 UNIT/ML Ophthalmic Four times a day 1-2 drop into affected eye 6h Feb, Feb, 07 days Active RESULTS No Results PROCEDURES Procedure Date Ordered Related Diagnosis Body Site Office Visit, Est Pt., Level 3 Feb 16, 2016 IMMUNIZATIONS No Known Immunizations
--- OUTSIDE RECORDS SUMMARY | 2018-03-09 12:00 | XMS REPORT ---
Author Author MATHIEU AGARWAL Organization [facility] Address [address] [place] [address] Care Team Providers Care Sales Clerk Supervisor Name Role Phone MATHIEU AGARWAL Unavailable PROBLEMS Type Condition ICD9-CM Code TUA10-HP Code Onset Dates Condition Status SNOMED Code Problem Essential hypertension I10 Active 12364809 Problem Non compliance w medication regimen Z91.14 Active 110055306 Problem Non-compliant behavior R46.89 Active 373667472 Problem Substance abuse F19.10 Active 55839216 ALLERGIES No Information SOCIAL HISTORY Never Assessed PLAN OF CARE VITAL SIGNS MEDICATIONS Unknown [...]
--- OUTSIDE RECORDS SUMMARY | 2018-03-09 12:00 | XMS REPORT ---
Author Author AGARWALMATHIEU Benitez Organization [facility] Address [address] [place] [address] Care Team Providers Care Medical Auditor Name Role Phone MATHIEU AGARWAL Unavailable PROBLEMS Type Condition ICD9-CM Code TIY52-XA Code Onset Dates Condition Status SNOMED Code Problem Non compliance w medication regimen Z91.14 Active 775550482 Problem Non-compliant behavior R46.89 Active 413661871 Problem Tobacco abuse counseling Z71.6 Active 912408872 Problem Tobacco abuse Z72.0 Active 808457436 Problem Elevated LDL cholesterol level E78.00 Active 723444974 Problem Essential hypertension I10 Active 28099985 Problem Methamphetamine abuse F15.10 Active 254775999 Problem Hep C w/o coma, chronic B18.2 Active 935020030 ALLERGIES No Information ENCOUNTERS Encounter Location Date Diagnosis [place] [id number] [place] [address] 74744- 8874 July, [place] [id number] [place] [address] 98512- 0701 Jun, Pre-diabetes R73.03 [place] [id number] [place] [address] 74315- 3287 Jun, Essential hypertension I10 ; Pre-diabetes R73.03 ; Elevated LDL cholesterol level E78.00 ; Hep C w/o coma, chronic B18.2 ; Non-compliant behavior R46.89 ; Methamphetamine abuse F15.10 ; Tobacco abuse Z72.0 ; Tobacco abuse counseling Z71.6 and Non compliance w medication regimen Z91.14 [facility] [id number] [place] [address] 21688- 4783 Mar, [facility] [id number] [place] [address] 28911- 2533 Nov, [facility] [address] [address] July, Allergic contact dermatitis due to plants, except food L23.7 [place] [id number] [place] [address] 51086- 4490 July, Essential hypertension I10 ; Pre-diabetes R73.03 and Elevated LDL cholesterol level E78.00 [place] [id number] [place] [address] 09453- 6886 May, [place] [id number] [place] [address] 05100- 7731 Apr, [place] [id number] [place] [address] 92126- 6260 Mar, History of hypertension Z86.79 ; History of hepatitis Z86.19 ; Substance abuse F19.10 ; Non compliance w medication regimen Z91.14 and Non-compliant behavior R46.89 [place] [id number] [place] [address] 33378- 3033 Feb, Pre-diabetes R73.09 [place] [id number] [place] [address] 49487- 8408 Feb, Bacterial conjunctivitis of right eye H10.9 [place] [id number] [place] [address] 71699- 4167 Jun, Pre-diabetes R73.09 ; History of hepatitis Z86.19 and Substance abuse F19.10 [place] [address] [place] [address] 65909- 6925 Jun, [place] [id number] [place] [address] 21642- 9666 Jun, Routine health maintenance Z00.00 [place] [id number] [place] [address] 10598- 6504 30 May, 2015 [place] [id number] [place] [address] 21633- 2838 May, History of hypertension Z86.79 ; History of hepatitis Z86.19 and Illicit drug use F19.90 [facility] [id number] [place] [address] 87149- 7034 10 May, 2015 Routine health maintenance Z00.00 ; History of gestational diabetes Z86.32 ; History of hypertension Z86.79 ; History of hepatitis Z86.19 and Substance abuse F19.10 [facility] [id number] [place] [address] [id number] 30 Nov, 2014 Dental examination V72.2 [facility] [id number] [place] [address] [id number] 30 Nov, 2014 Encounter for dental examination V72.2 [facility] [address] 89142- 9793 24 Aug, 2014 Routine gynecological examination V72.31 ; Pap test, as part of routine gynecological examination V76.2 ; Screen for STD (sexually transmitted disease) V74.5 ; Breast cancer screening V76.10 ; Vaginal odor 625.8 and Tobacco abuse 305.1 [facility] [id number] [place] [address] 26704- 0189 16 Aug, 2014 Vaginal discharge 623.5 and Vaginal odor 625.8 [facility] [id number] [place] [address] 46705- 4580 Aug, [facility] [id number] [place] [address] 16563- 1622 Jun, [facility] [id number] [place] [address] 70204- 2828 Jun, [facility] [address] 01206- 0661 Mar, [facility] [address] 30839- 0352 Mar, [facility] [id number] [place] [address] 96742- 4087 Oct, [facility] [place] [facility] [address] [id number] [place] [address]- 7389 Sep, [facility] [place] [facility] [address] [id number] [place] 8880 Sep, [facility] [place] [facility] [address] [id number] [place] [address]- 5376 Aug, [facility] [place] [facility] [address] [id number] [place] [address]- 4301 Aug, [facility] [place] [facility] [address] [id number] [place] [address]- 8788 Aug, [facility] [place] [facility] [address] [id number] [place] [id number] Aug, [facility] [place] [facility] [address] [id number] [place] [address]- 3895 Aug, [facility] [place] [facility] [address] [id number] [place] [address]- 9709 Aug, [facility] [place] [facility] [address] [id number] [place] [address]- 6012 Aug, [facility] [place] [facility] [address] [id number] [place] [address]- 6087 Aug, [facility] [place] [facility] [address] [id number] [place] [address]- 8111 Aug, [facility] [place] [facility] [address] [id number] [place] [address]- 4431 Aug, [facility] [place] [facility] [address] [id number] [place] [address]- 8582 Aug, [facility] [place] [facility] [address] [id number] [place] [address]- 3481 Aug, [facility] [place] [facility] [address] [id number] [place] [address]- 6719 07 Aug, 2013 [facility] [place] [facility] [address] [id number] [place] [address]- 5594 Aug, [facility] [address] [address]- 0204 July, [facility] [address] [address]- 9036 July, [facility] [address] [address]- 4377 July, [facility] [address] [address]- 2110 July, [facility] [address] [address]- 9605 July, [facility] [address] [address]- 8866 Apr, [facility] [address] [address]- 6881 Feb, [facility] [address] 5152 Feb, [facility] [address] [address] Jan, [facility] [address] [address]- 6998 Jan, [facility] [id number] [address]- 4906 Aug, [facility] [id number] [address]- 0583 Jun, [facility] [id number] [address]- 8745 Jun, IMMUNIZATIONS No Known Immunizations SOCIAL HISTORY Never Assessed REASON FOR VISIT needs appt PLAN OF CARE VITAL SIGNS MEDICATIONS Unknown [...]
--- OUTSIDE RECORDS SUMMARY | 2018-03-09 12:00 | XMS REPORT ---
Author Author MATHIEU AGARWAL Organization [employer] Address Unknown Phone Unavailable Care Team Providers Care Industrial Psychology Professor Name Role Phone MATHIEU AGARWAL CP Unavailable Allergies No Known Allergies Problems Problem Type Condition Code Onset Dates Condition Status Problem History of gestational diabetes Z86.32 Active Problem History of hypertension Z86.79 Active Problem Routine health maintenance Z00.00 Active Problem Encounter for dental examination V72.2 Active Assessment Routine health maintenance Z00.00 Active Problem History of hepatitis Z86.19 Active Problem Substance abuse F19.10 Active Medications No Known Medications Procedures Procedure Coding System Code Date GLYCATED HEMOGLOBIN TEST CPT-4 82668 June 20, 2015 COMPLETE CBC W/AUTO DIFF WBC CPT-4 51187 June 20, 2015 ASSAY THYROID STIM HORMONE CPT-4 28753 June 20, 2015 COMPREHEN METABOLIC PANEL CPT-4 63617 June 20, 2015 LIPID PANEL CPT-4 57312 June 20, 2015 VENIPUNCT, ROUTINE* CPT-4 73401 June 20, 2015 ACUTE HEPATITIS PANEL CPT-4 04817 June 20, 2015 Results Name Result Date Reference Range Unit Abnormality Flag ROUTINE VENIPUNCTURE Summary Purpose [employer] Submission
--- OUTSIDE RECORDS SUMMARY | 2018-03-09 12:00 | XMS REPORT ---
Author Author ALEX GU Organization [employer] Address Unknown Phone Unavailable Care Team Providers Care Cafeteria Helper Name Role Phone ALEX GU CP Unavailable Allergies, Adverse Reactions, Alerts Substance Reaction Event Type N.K.D.A. Info Not Available Non Drug Allergy Problems Problem Type Condition Code Onset Dates Condition Status Assessment Dental examination V72.2 Active Problem Encounter for dental examination V72.2 Active Medications Medication Code System Code Instructions Start Date End Date Status Dosage Katie [facility] [address]-55 5-325 MG Orally every 6 hrs Dec 01, 2014 Dec 05, 2014 1 tablet as needed Procedures Procedure Coding System Code Date EXTRAC ERUPTED TOOTH/EXPOSED ROOT CPT-4 D7140 Dec 01, 2014 INTRAORL-PERIAPICAL 1 FILM 66061 CPT-4 D0220 Dec 01, 2014 Vital Signs Date/Time: Dec 01, 2014 Blood Pressure Diastolic 86 mmHg Blood Pressure Systolic 123 mmHg Results No Known Results Summary Purpose [employer] Submission
--- OUTSIDE RECORDS SUMMARY | 2018-03-09 12:00 | XMS REPORT ---
Author Author AGARWALMATHIEU Benitez Organization [facility] Address [address] [place] [address] Care Team Providers Care Pottery Machine Operator Name Role Phone MATHIEU AGARWAL Unavailable PROBLEMS Type Condition ICD9-CM Code DDW87-CX Code Onset Dates Condition Status SNOMED Code Problem Non compliance w medication regimen Z91.14 Active 349550325 Problem Non-compliant behavior R46.89 Active 820933917 Problem Tobacco abuse counseling Z71.6 Active 275644755 Problem Tobacco abuse Z72.0 Active 297755581 Problem Elevated LDL cholesterol level E78.00 Active 260204230 Problem Essential hypertension I10 Active 70072770 Problem Methamphetamine abuse F15.10 Active 801173488 Problem Hep C w/o coma, chronic B18.2 Active 748947105 ALLERGIES No Information ENCOUNTERS Encounter Location Date Diagnosis [facility] [id number] [place] [address] July, Contact dermatitis, unspecified contact dermatitis type, unspecified trigger L25.9 [facility] [id number] [place] [address] 2965 Jun, Pre-diabetes R73.03 [facility] [id number] [place] [address] 25359- 2155 Jun, Essential hypertension I10 ; Pre-diabetes R73.03 ; Elevated LDL cholesterol level E78.00 ; Hep C w/o coma, chronic B18.2 ; Non-compliant behavior R46.89 ; Methamphetamine abuse F15.10 ; Tobacco abuse Z72.0 ; Tobacco abuse counseling Z71.6 and Non compliance w medication regimen Z91.14 [facility] [id number] [place] [address] 95469- 3299 Mar, [facility] [id number] [place] [address] 33211- 6[address] Nov, [facility] [address] [address] July, Allergic contact dermatitis due to plants, except food L23.7 [facility] [id number] [place] [address]17[address] July, Essential hypertension I10 ; Pre-diabetes R73.03 and Elevated LDL cholesterol level E78.00 [facility] [id number] [place] [address]- 0900 May, [id number] [place] [address] 32340- 9349 Apr, [facility] [id number] [place] [address] 10913- 1480 Mar, History of hypertension Z86.79 ; History of hepatitis Z86.19 ; Substance abuse F19.10 ; Non compliance w medication regimen Z91.14 and Non-compliant behavior R46.89 [id number] [place] [address] 08781- 8798 Feb, Pre-diabetes R73.09 [address] [facility] [id number] [place] [address] 34345- 1606 Feb, Bacterial conjunctivitis of right eye H10.9 [address] [address] [place] [address] 96869- 3036 Jun, Pre-diabetes R73.09 ; History of hepatitis Z86.19 and Substance abuse F19.10 [address] [address] [address] Jun, [id number] [place] [address] 59494- 6391 Jun, Routine health maintenance Z00.00 [address] [address] May, [id number] [place] [address] 10849- 7456 17 May, 2015 History of hypertension Z86.79 ; History of hepatitis Z86.19 and Illicit drug use F19.90 [facility] [id number] [place] [address] 96844- 2237 10 May, 2015 Routine health maintenance Z00.00 ; History of gestational diabetes Z86.32 ; History of hypertension Z86.79 ; History of hepatitis Z86.19 and Substance abuse F19.10 [facility] [id number] [place] [id number] 30 Nov, 2014 Dental examination V72.2 [facility] [address] [id number] 30 Nov, 2014 Encounter for dental examination V72.2 [facility] [id number] [place] [address] 74986- 9481 24 Aug, 2014 Routine gynecological examination V72.31 ; Pap test, as part of routine gynecological examination V76.2 ; Screen for STD (sexually transmitted disease) V74.5 ; Breast cancer screening V76.10 ; Vaginal odor 625.8 and Tobacco abuse 305.1 [facility] [id number] [place] [address] 78926- 4803 16 Aug, 2014 Vaginal discharge 623.5 and Vaginal odor 625.8 [facility] [id number] [place] [address] 47458- 8309 Aug, [facility] [id number] [place] [address] 51666- 5323 14 Jun, 2014 [facility] [id number] [place] [address] 78456- 5367 Jun, [facility] [address] [address] Mar, [facility] [id number] [place] [address] 35861- 6754 Mar, [facility] [address] [address] Oct, [facility] [place] [facility] [address] [id number] [place] [address] Sep, [facility] [place] [facility] [address] [id number] [place] Sep, [facility] [place] [facility] [address] [id number] [place] [address] Aug, [facility] [place] [facility] [address] [id number] [place] [address] Aug, [facility] [place] [facility] [address] [id number] [place] [address] Aug, [facility] [place] [facility] [address] [id number] [place] [id number] Aug, [facility] [place] [facility] [address] [id number] [place] [address] 6[address] Aug, [facility] [place] [facility] [address] [id number] [place] [address] Aug, [facility] [place] [facility] [address] [id number] [place] [address] Aug, [facility] [place] [facility] [address] [id number] [place] [address]- 5796 Aug, [facility] [place] [facility] [address] [id number] [place] [address] 8[address] Aug, [facility] [place] [facility] [address] [id number] [place] [address] Aug, [facility] [place] [facility] [address] [id number] [place] [address] 9[address] Aug, [facility] [place] [facility] [address] [id number] [place] [address] Aug, [facility] [place] [facility] [address] [id number] [place] [address] 7136 Aug, [facility] [place] [facility] [address] [address] Aug, [facility] [address] [address] July, [facility] [address] [address] July, [facility] [address] [address] July, [facility] [address] [address] July, [facility] [address] [place] [address] 46070- 4536 July, [facility] [address] [address] 8[address] Apr, [facility] [address] [place] [address] 58259- 8696 Feb, [facility] [address] [address] Feb, [facility] [address] [address] Jan, [facility] [address] [address] Jan, [facility] [address] [address] Aug, [facility] [address] [address] Jun, [facility] [address] [address] Jun, IMMUNIZATIONS No Known Immunizations SOCIAL HISTORY Never Assessed REASON FOR VISIT medication refill PLAN OF CARE VITAL SIGNS MEDICATIONS Medication [...]
--- OUTSIDE RECORDS SUMMARY | 2018-03-09 12:00 | XMS REPORT ---
Author Author STEFANO MATHIEU Organization [facility] Address [address] [place] [address] Care Team Providers Care Heart Doctor Name Role Phone AGARWALRAÚL BenitezELE Unavailable PROBLEMS Type Condition ICD9-CM Code KLB76-RG Code Onset Dates Condition Status SNOMED Code Problem Essential hypertension I10 Active 04027535 Problem Non compliance w medication regimen Z91.14 Active 119000503 Problem Non-compliant behavior R46.89 Active 294473525 Problem Substance abuse F19.10 Active 64305787 ALLERGIES Substance Reaction Event Type Date Status N.K.D.A. Unknown Non Drug Allergy Mar, Unknown SOCIAL HISTORY No smoking Hx information available PLAN OF CARE Activity Details Follow Up 3 Months Reason:[facility] VITAL SIGNS Height 66 in 2016-03-06 Weight 165.1 lbs 2016-03-06 Temperature 97.7 degrees Fahrenheit 2016-03-06 Heart Rate 78 bpm 2016-03-06 Respiratory Rate 20 2016-03-06 BMI 26.64 kg/m2 2016-03-06 Blood pressure systolic 139 mmHg 2016-03-06 Blood pressure diastolic 86 mmHg 2016-03-06 MEDICATIONS Medication Instructions Dosage Frequency Start Date End Date Duration Status MetFORMIN HCl ER 500 MG Orally twice a day one tablet with meal twice daily 12h 20 Jun, 2015 Active RESULTS No Results PROCEDURES Procedure Date Ordered Related Diagnosis Body Site Office Visit, Est Pt., Level 3 Mar 06, 2016 IMMUNIZATIONS No Known Immunizations
--- OUTSIDE RECORDS SUMMARY | 2018-03-09 12:00 | XMS REPORT ---
Author Author HUMBERTO ROMO Organization [facility] Address [address] [place] [address] Care Team Providers Care Manager Pmo Name Role Phone HUMBERTO ROMO Unavailable PROBLEMS Type Condition ICD9-CM Code SWZ40-GD Code Onset Dates Condition Status SNOMED Code Problem Essential hypertension I10 Active 82768934 Problem Non compliance w medication regimen Z91.14 Active 584636951 Problem Non-compliant behavior R46.89 Active 468853962 Problem Substance abuse F19.10 Active 01292395 ALLERGIES No Known Allergies SOCIAL HISTORY Never Assessed PLAN OF CARE Activity Details Follow Up prn Reason: VITAL SIGNS Height 66 in 2016-07-26 Weight 156.8 lbs 2016-07-26 Temperature 98.2 degrees Fahrenheit 2016-07-26 Heart Rate 80 bpm 2016-07-26 Respiratory Rate 22 2016-07-26 BMI 25.31 kg/m2 2016-07-26 Blood pressure systolic 138 mmHg 2016-07-26 Blood pressure diastolic 92 mmHg 2016-07-26 MEDICATIONS Unknown Medications RESULTS No Results PROCEDURES Procedure Date Ordered Result Body Site SOLUMEDROL (UP TO 125 MG) July 26, 2016 THER/PROPH/DIAG INJ, SC/IM July 26, 2016 IMMUNIZATIONS Vaccine Route Administration Date Status SOLUMEDROL (UP TO 125 MG) IM Intramuscular July 26, 2016 Administered MEDICAL (GENERAL) HISTORY Type Description Date Medical [...]
--- OUTSIDE RECORDS SUMMARY | 2018-03-09 12:00 | XMS REPORT ---
Author Author MATHIEU AGARWAL Organization [employer] Address Unknown Phone Unavailable Care Team Providers Care General Utility Machine Operator Name Role Phone MATHIEU AGARWAL CP Unavailable Allergies, Adverse Reactions, Alerts Substance Reaction Event Type N.K.D.A. Info Not Available Non Drug Allergy Problems Problem Type Condition Code Onset Dates Condition Status Assessment History of hepatitis Z86.19 Active Assessment Substance abuse F19.10 Active Problem History of gestational diabetes Z86.32 Active Problem History of hypertension Z86.79 Active Problem Routine health maintenance Z00.00 Active Problem Encounter for dental examination V72.2 Active Assessment Pre-diabetes R73.09 Active Problem History of hepatitis Z86.19 Active Problem Substance abuse F19.10 Active Medications Medication Code System Code Instructions Start Date End Date Status Dosage MetFORMIN HCl ER [facility] [address]-47 500 MG Orally twice a day June 22, 2015 1 tablet with evening meal x 7 days then one tablet with meal twice daily Procedures Procedure Coding System Code Date Office Visit, Est Pt., Level 3 CPT-4 00431 June 28, 2015 Vital Signs Date/Time: June 28, 2015 Temperature 97.8 F Weight 177.0 lbs Height 66 in BMI 28.57 Index Blood Pressure Diastolic 78 mmHg Blood Pressure Systolic 130 mmHg Cardiac Monitoring Heart Rate 78 bpm Results No Known Results Summary Purpose [employer] Submission
--- OUTSIDE RECORDS SUMMARY | 2018-03-09 12:00 | XMS REPORT ---
Author Author MATHIEU AGARWAL Organization [employer] Address Unknown Phone Unavailable Care Team Providers Care Wood Pattern Maker Name Role Phone MATHIEU AGARWAL CP Unavailable Allergies No Known Allergies Problems Problem Type Condition Code Onset Dates Condition Status Problem History of gestational diabetes Z86.32 Active Problem History of hypertension Z86.79 Active Problem Routine health maintenance Z00.00 Active Problem Encounter for dental examination V72.2 Active Problem History of hepatitis Z86.19 Active Problem Substance abuse F19.10 Active Medications Medication Code System Code Instructions Start Date End Date Status Dosage MetFORMIN HCl ER [facility] [address]-69 500 MG Orally twice a day June 22, 2015 1 tablet with evening meal x 7 days then one tablet with meal twice daily Results No Known Results Summary Purpose [employer] Submission
--- OUTSIDE RECORDS SUMMARY | 2018-03-09 12:01 | XMS REPORT | Continuity of Care Document ---
Author Author [facility] Address Unknown Phone Unavailable Allergies Active Description Code Type Severity Reaction Onset Reported/Identified Relationship to Patient Clinical Status Yes Penicillins Drug Allergy 06/26/2011 Yes Penicillins Drug Allergy N/A N/A 06/26/2011 Yes Penicillins [id number] Drug Allergy Mild N/A 07/17/2011 Medications There is no data. Problems Date Dx Coded Attending Type Code Diagnosis Diagnosed By 06/26/2011 SHELBY JUDGE MD 477.0 ALLERGIC RHINITIS - POLLEN 06/26/2011 477.0 ALLERGIC RHINITIS - POLLEN 06/26/2011 TIARA CHOWDARY APRN 477.0 ALLERGIC RHINITIS - POLLEN 06/26/2011 HILDA HUITRON DO 477.0 ALLERGIC RHINITIS - POLLEN 06/26/2011 WHITE ARMINDASNIGEL 477.0 ALLERGIC RHINITIS - POLLEN 06/26/2011 WHITE ARMINDASNIGEL 477.0 ALLERGIC RHINITIS - POLLEN 06/26/2011 TIARA CHOWDARY APRN R 477.0 ALLERGIC RHINITIS - POLLEN 07/17/2011 Ot 959.3 07/17/2011 Ot E000.8 07/17/2011 Ot E849.0 07/17/2011 Ot E885.9 02/01/2012 SHELBY JUDGE MD 461.9 SINUSITIS ACUTE 02/01/2012 SHELBY JUDGE MD 786.2 cough 02/01/2012 461.9 SINUSITIS ACUTE 02/01/2012 786.2 cough 02/01/2012 TIARA CHOWDARY APRN R 461.9 SINUSITIS ACUTE 02/01/2012 TIARA CHOWDARY APRN R 786.2 cough 02/01/2012 HILDA HUITRON DO 461.9 SINUSITIS ACUTE 02/01/2012 HILDA HUITRON DO K 786.2 cough 02/01/2012 WHITE ARMINDAS, NIGEL D 461.9 SINUSITIS ACUTE 02/01/2012 NIGEL PRATT DDS 786.2 cough 02/01/2012 WHITE DDS, NIGEL D 461.9 SINUSITIS ACUTE 02/01/2012 WHITE DDS, NIGEL D 786.2 cough 02/01/2012 TIARA CHOWDARY APRN R 461.9 SINUSITIS ACUTE 02/01/2012 JESSICA CHOWDARY APRNINA R 786.2 cough 04/14/2012 132.0 PEDICULOSIS CAPITIS 04/14/2012 RICARDA ANN TIARA R 132.0 PEDICULOSIS CAPITIS 04/14/2012 HUITRON DO, HILDA K 132.0 PEDICULOSIS CAPITIS 04/14/2012 WHITE DDS, NIGEL D 132.0 PEDICULOSIS CAPITIS 04/14/2012 WHITE DDS, NIGEL D 132.0 PEDICULOSIS CAPITIS 04/14/2012 JESSICA CHOWDARY APRNINA R 132.0 PEDICULOSIS CAPITIS 07/17/2013 JESSICA CHOWDARY APRNINA R 599.0 URINARY TRACT INFECTION 07/17/2013 HUITRON DO, HILDA K 599.0 URINARY TRACT INFECTION 07/17/2013 WHITE DDS, NIGEL D 599.0 URINARY TRACT INFECTION 07/17/2013 WHITE DDS, NIGEL D 599.0 URINARY TRACT INFECTION 07/17/2013 JESSICA CHOWDARY APRNINA R 599.0 URINARY TRACT INFECTION 08/25/2013 WHITE DDS, NIGEL D 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 08/25/2013 TIARA CHOWDARY APRN R 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 05/19/2015 MATHIEU AGARWAL APRN Ot Z00.00 05/19/2015 MATHIEU AGARWAL APRN Ot Z86.19 Procedures Code [place] [address] UA W/ CULTURE IF INDICATED 07/17/2013 79366 CULTURE URINE 07/19/2013 21650 UA W/ CULTURE IF INDICATED 08/08/2013 18768 CULTURE URINE 08/10/2013 96543 ROUTINE VENIPUNCTURE 08/25/2013 34022 CBC 08/25/2013 [id number] GFR CALC (RESULT ONLY) 08/25/2013 69908 CMP 08/25/2013 59822 TSH 08/25/2013 14183 HEPATITIS PROFILE 08/26/2013 [id number] HCV INDEX (RESULT ONLY) 08/26/2013 60320 AMERITOX 08/27/2013 Results Test Result Range CBC - 06/10/17 08:43 WHITE BLOOD CELL COUNT 7.1 Thousand/uL 3.8-10.8 RED BLOOD CELL COUNT 5.14 Million/uL 3.80-5.10 HEMOGLOBIN 15.0 g/dL 11.7-15.5 HEMATOCRIT 45.9 % 35.0-45.0 MCV 89.3 fL 80.0-100.0 MCH 29.2 pg 27.0-33.0 MCHC 32.7 g/dL 32.0-36.0 RDW 12.4 % 11.0-15.0 PLATELET COUNT 265 Thousand/uL 140-400 MPV 10.0 fL 7.5-12.5 ABSOLUTE NEUTROPHILS 3323 cells/uL 1354-6891 ABSOLUTE LYMPHOCYTES 3010 cells/uL 850-3900 ABSOLUTE MONOCYTES 518 cells/uL 200-950 ABSOLUTE EOSINOPHILS 156 cells/uL 15-500 ABSOLUTE BASOPHILS 92 cells/uL 0-200 NEUTROPHILS 46.8 % NRG LYMPHOCYTES 42.4 % NRG MONOCYTES 7.3 % NRG EOSINOPHILS 2.2 % NRG BASOPHILS 1.3 % NRG THYROID ANALYZER - 06/10/17 08:43 TSH 1.68 mIU/L NRG Encounters ACCT No. Visit Date/Time Discharge Status Pt. Type Provider Facility Loc./Unit Complaint [id number] 03/16/2014 15:23:00 03/16/2014 23:59:59 CLS Outpatient TIARA CHOWDARY APRN [id number] 08/27/2013 08:00:00 08/27/2013 23:59:59 CLS Outpatient NIGEL PRATT DDS [id number] 08/13/2013 09:54:00 08/13/2013 23:59:59 CLS Outpatient NIGEL PRATT DDS [id number] 08/08/2013 14:24:00 08/08/2013 23:59:59 CLS Outpatient HILDA HUITRON DO [id number] 07/17/2013 10:50:00 07/17/2013 23:59:59 CLS Outpatient TIARA CHOWDARY APRN [id number] 04/14/2012 13:54:00 04/14/2012 23:59:59 CLS Outpatient [id number] 02/01/2012 15:41:00 02/01/2012 23:59:59 CLS Outpatient SHELBY JUDGE MD [id number] 05/19/2015 09:36:00 05/19/2015 23:59:59 CLS Outpatient MATHIEU AGARWAL APRN [facility] [id number] 07/17/2011 11:02:00 Document Registration [id number] 07/24/2017 11:45:00 07/24/2017 23:59:59 [facility] Outpatient MATHIEU AGARWAL [facility] [id number] 06/10/2017 08:20:00 Document Registration
--- NOTE | 2018-03-09 12:13 | ED Cough/URI ---
General Chief Complaint: Cough/Cold/Flu Symptoms Stated Complaint: COUGH/CONGESTION/POSS STD EXPOSURE Nursing Triage Note: COMPLAINS OF COUGH, CONGESTION, AND DIZZINESS, AND BODY ACHES FOR 7 DAYS. ALSO STATES SHE WANTS CHECKED FOR A STD. THE PERSON SHE SLEPT WITH HAS A STD BUT SHE DOES NOT KNOW WHAT. Source: patient Exam Limitations: no limitations History of Present Illness Date Seen by Provider: Mar 09, 2018 Time Seen by Provider: 12:10 Initial Comments Patient is a 57-year-old female who presents to the emergency room with complaints of cough and congestion and body aches for the past week. She also reports that she wants checked for STDs because her and her at affairs any other and she has been told that the person she had intercourse with had STDs. She is unsure what STDs she was possibly exposed to. She is symptom-free at this time. Timing/Duration: week Severity/Quality: productive cough Prior Episodes/Possible Cause: no prior episodes Associated Symptoms: cough, muscle aches, nasal congestion Allergies and Home Medications Allergies Coded Allergies: Penicillins (Verified Adverse Reaction, Mild, 07/17/11) Patient Home Medication List Home Medication List Reviewed: Yes Review of Systems Review of Systems Constitutional: see HPI EENTM: see HPI, nose congestion Respiratory: see HPI, cough, phlegm Genitourinary: see HPI, other (possible STD) All Other Systems Reviewed Negative Unless Noted: Yes Past Mkemfci-Rrsyrj-Hcvecm Hx Past Med/Social Hx: Reviewed Nursing Past Med/Soc Hx Patient Social History Recent Foreign Travel: No Contact w/Someone Who Travel: No Recent Infectious Disease Expo: No Past Medical History Reproductive Disorders: No Family Medical History Reviewed Nursing Family Hx Physical Exam Vital Signs - First Documented 03/09/18 11:59 Temp 97.1 Pulse 103 Resp 16 B/P (MAP) 140/97 (111) Pulse Ox 97 O2 Delivery Room Air Capillary Refill : Less Than 3 Seconds Height: 5'6.00" Weight: 170lbs. oz. 77.687175yz; BMI Method:Stated General Appearance: WD/WN, no apparent distress HEENT: PERRL/EOMI, normal ENT inspection, TMs normal, pharynx normal Neck: non-tender, full range of motion, supple, normal inspection, carotid bruit Respiratory: chest non-tender, lungs clear, normal breath sounds, no respiratory distress, no accessory muscle use, respiratory distress Cardiovascular: normal peripheral pulses, regular rate, rhythm, no edema, no gallop, no JVD, no murmur Gastrointestinal: normal bowel sounds, non tender, soft, no organomegaly, no pulsatile mass Extremities: normal capillary refill Neurologic/Psychiatric: alert, normal mood/affect, oriented x 3 Skin: normal color, warm/dry Progress/Results/Core Measures Suspected Sepsis Recent Fever Within 48 Hours: No Infection Criteria Present: Suspected New Infection New/Unexplained Altered Menta: No Sepsis Screen: No Definite Risk SIRS Temperature:97.1 Pulse: 103 Respiratory Rate: 16 Blood Pressure 140 /97 Mean: 111 Results/Orders Lab Results Laboratory Tests Test 03/09/18 12:11 Range/Units Urine Color YELLOW Urine Clarity VERY CLOUDY H Urine pH 5 5-9 Urine Specific [place] 1.025 H 1.016-1.022 Urine Protein 2+ H NEGATIVE Urine Glucose (UA) NEGATIVE NEGATIVE Urine Ketones NEGATIVE NEGATIVE Urine Nitrite NEGATIVE NEGATIVE Urine Bilirubin NEGATIVE NEGATIVE Urine Urobilinogen NORMAL NORMAL MG/DL Urine Leukocyte Esterase 2+ H NEGATIVE Urine RBC (Auto) 2+ H NEGATIVE Urine RBC NONE /HPF Urine WBC 2-5 /HPF Urine Squamous Epithelial Cells 5-10 /HPF Urine Crystals PRESENT H /LPF Urine Amorphous Sediment MOD TYREE URATES H /LPF Urine Bacteria LARGE H /HPF Urine Casts NONE /LPF Urine Mucus MODERATE H /LPF Urine Culture Indicated YES Micro Results Microbiology 03/09/18 Influenza Types A,B Antigen (KRISTINA) - Final, Complete My Orders Orders - LI HELTON Ua Culture If Indicated (03/09/18 12:07) Neis Zohaib Dna Urine Test (03/09/18 12:07) Chlamydia Trachomatis Urine (03/09/18 12:07) Influenza A And B Antigens (03/09/18 12:07) Ceftriaxone For Im Use (Rocephin For Im (03/09/18 12:15) Azithromycin Tablet (Zithromax Tablet) (03/10/18 09:00) Lidocaine 1% Inj 20 Ml (Xylocaine 1% Inj (03/09/18 12:30) Azithromycin Tablet (Zithromax Tablet) (03/09/18 12:22) Lidocaine 1% Inj 20 Ml (Xylocaine 1% Inj (03/09/18 12:22) Urine Culture (03/09/18 12:11) Medications Given in ED Current Medications Medications Dose Ordered Sig/Sd Route Start Time Stop Time Status Last Admin Dose Admin Ceftriaxone Sodium 1,000 mg ONCE ONCE IM 03/09/18 12:15 03/09/18 12:16 DC 03/09/18 12:30 1,000 MG Lidocaine HCl 20 ml ONCE ONCE INJ 03/09/18 12:30 03/09/18 12:31 DC 03/09/18 12:29 2.1 ML Vital Signs/I&O 03/09/18 11:59 Temp 97.1 Pulse 103 Resp 16 B/P (MAP) 140/97 (111) Pulse Ox 97 O2 Delivery Room Air Capillary Refill : Less Than 3 Seconds Blood Pressure Mean: 111 Departure Impression Primary Impression: Upper respiratory infection Additional Impression: Possible exposure to STD Disposition: HOME, SELF-CARE Condition: Stable/Unchanged Departure-Patient Inst. Decision time for Depature: 12:54 Referrals: [facility] (PCP/Family) Primary Care Physician Patient Instructions: Cough, Runny Nose, and the Common Cold (DC), STD Prevention Add. Discharge Instructions: You may use mhbc-cyl-[id number] cold cough and flu medications as directed by the bottle. Follow-up with your primary care provider within 1 week for recheck. You will be notified of your laboratory results when they are finalized. Return back to the emergency room for any worsening symptoms or concerns as needed. All discharge instructions reviewed with patient and/or family. Voiced understanding. LI HELTON Mar 09, 2018 12:13
[2018-03-09] MEDS ORDERED: cefTRIAXone 1,000 MG/2.86 ml vial (IM ONLY) IM ONE (12:15)
[2018-03-09] MEDS ORDERED: LIDOCAINE 1% INJ 20 ML 20 ML VIAL ONE (12:22)
[2018-03-09] MEDS ORDERED: AZITHROMYCIN 250 MG TAB (ZITHROMAX) PO ONE (12:22)
[2018-03-09 12:28] LABS: BILIRUBIN,URINE NEGATIVE (NEGATIVE); CLARITY,URINE VERY CLOUDY; COLOR,URINE YELLOW; GLUCOSE, URINE (UA) NEGATIVE (NEGATIVE); KETONES,URINE NEGATIVE (NEGATIVE); LEUKOCYTE ESTERASE ,URINE 2+ (NEGATIVE); NITRITE,URINE NEGATIVE (NEGATIVE); PH,URINE 5 (5-9); PROTEIN,URINE 2+ (NEGATIVE); UROBILINOGEN,URINE NORMAL (NORMAL)
[2018-03-09] MEDS ORDERED: LIDOCAINE 1% INJ 20 ML 20 ML VIAL INJ ONE (12:30)
[2018-03-09 12:39] LABS: AMORPHOUS SEDIMENT,UR MOD AMOR URATES /LPF; BACTERIA,URINE LARGE /HPF
[2018-03-09 13:12] VITALS: BP 153/88
--- NOTE | 2018-03-09 13:13 | NUR ---
UPON DISCHARGE I COULD HEAR PT'S YELLING AT HER ON THE PHONE. PT STATES SHE NEEDS TO GET AWAY FROM HIM AND CALL THE [facility]. ASKED IF SHE WOULD LIKE ME TO CALL THE [facility] AND SHE STATED NO AND LEFT.
[2018-03-10] MEDS ORDERED: AZITHROMYCIN 250 MG TAB (ZITHROMAX) PO SCH (09:00)
== END 2018-03-09 13:12 | disposition home or self-care (01) ==
LOC: EDUNIT# 11:54 → ER 11:55
DX: J06.9 Acute upper respiratory infection, unspecified (principal); Z20.2 Contact with and (suspected) exposure to infections with a predominantly sexual mode of transmission; Z88.0 Allergy status to penicillin
CPT/HCPCS: 36415; 81000; 87088; 87491; 87591; 87804; 96372

== ENCOUNTER 2018-06-09 12:01 | Emergency (ER) | payer SELFPAY ==
[~2018-06-09] VITALS: Ht 165.1 cm; Wt 74.8 kg
--- OUTSIDE RECORDS SUMMARY | 2018-06-09 12:06 | XMS REPORT ---
Author Author Migration, Doctor Organization [facility] Address Unknown Phone Unavailable Care Team Providers Care Tire Tester Name Role Phone Migration, Doctor Unavailable Unavailable PROBLEMS Type Condition ICD9-CM Code [id number] Code Onset Dates Condition Status SNOMED Code Problem Non-compliant behavior R46.89 Active 099681513 Problem Non compliance w medication regimen Z91.14 Active 725443495 Problem Tobacco abuse Z72.0 Active 341923156 Problem Tobacco abuse counseling Z71.6 Active 246922429 Problem Essential hypertension I10 Active 96975435 Problem Elevated LDL cholesterol level E78.00 Active 380620393 Problem Hep C w/o coma, chronic B18.2 Active 993366157 Problem Methamphetamine abuse F15.10 Active 890479499 ALLERGIES No Information ENCOUNTERS Encounter Location Date Diagnosis [facility] [address] [id number] Jan, [facility] [address] [address] Dec, [facility] [address] [id number] Nov, Dental examination Z01.20 [facility] [address] [id number] Oct, Dental examination Z01.20 [facility] [address] [id number] Oct, Dental examination Z01.20 [facility] [address] [address] Oct, [facility] [address] [address] July, Contact dermatitis, unspecified contact dermatitis type, unspecified trigger L25.9 [facility] [address] [address] Jun, Pre-diabetes R73.03 [place] [id number] [place] [address] Jun, Essential hypertension I10 ; Pre-diabetes R73.03 ; Elevated LDL cholesterol level E78.00 ; Hep C w/o coma, chronic B18.2 ; Non-compliant behavior R46.89 ; Methamphetamine abuse F15.10 ; Tobacco abuse Z72.0 ; Tobacco abuse counseling Z71.6 and Non compliance w medication regimen Z91.14 [place] [address] [place] [id number] [place] [address] Mar, [place] [address] [place] [id number] [place] [address] Nov, [facility] [address] [place] [id number] [place] [address] July, Allergic contact dermatitis due to plants, except food L23.7 [place] [address] [place] [id number] [place] [address] July, Essential hypertension I10 ; Pre-diabetes R73.03 and Elevated LDL cholesterol level E78.00 [place] [address] [place] [id number] [place] [address] May, [place] [address] [place] [id number] [place] [address] Apr, [place] [address] [place] [id number] [place] [address] Mar, History of hypertension Z86.79 ; History of hepatitis Z86.19 ; Substance abuse F19.10 ; Non compliance w medication regimen Z91.14 and Non-compliant behavior R46.89 [place] [address] [place] [id number] [place] [address] Feb, Pre-diabetes R73.09 [place] [address] [place] [id number] [place] [address] Feb, Bacterial conjunctivitis of right eye H10.9 [facility] [id number] [place] [address] Jun, Pre-diabetes R73.09 ; History of hepatitis Z86.19 [address]10 [facility] [address] [address] Jun, [facility] [address] [place] [id number] [place] [address] Jun, Routine health maintenance Z00.00 [place] [address] [place] [id number] [place] [address] 30 May, 2015 [place] [address] [place] [id number] [place] [address] 17 May, 2015 History of hypertension Z86.79 ; History of hepatitis Z86.19 and Illicit drug use F19.90 [place] [address] [place] [id number] [place] [address] May, Routine health maintenance Z00.00 ; History of gestational diabetes Z86.32 ; History of hypertension Z86.79 ; History of hepatitis Z86.19 and Substance abuse F19.10 [facility] [address] [place] [id number] Nov, Dental examination V72.2 [facility] [address] [place] [id number] [place] [id number] Nov, Encounter for dental examination V72.2 [place] [id number] [place] [address] 24 Aug, 2014 Routine gynecological examination V72.31 ; Pap test, as part of routine gynecological examination V76.2 ; Screen for STD (sexually transmitted disease) V74.5 ; Breast cancer screening V76.10 ; Vaginal odor 625.8 and Tobacco abuse 305.1 [place] [address] [address] 16 Aug, 2014 Vaginal discharge 623.5 and Vaginal odor 625.8 [place] [address] [id number] [place] [address] 12 Aug, 2014 [facility] [place] [facility] [address] [id number] [place] [address] 14 Jun, 2014 [facility] [place] [facility] [address] [id number] [place] [address] Jun, [facility] [place] [facility] [address] [id number] [place] [address] Mar, [facility] [place] [facility] [address] [id number] [place] [address] Mar, [facility] [place] [facility] [address] [id number] [place] [address] Oct, [facility] [place] [facility] [address] [id number] [place] Sep, [facility] [place] [facility] [address] [id number] [place] [address] Sep, [facility] [place] [facility] [address] [id number] [place] [address] Aug, [facility] [place] [facility] [address] [id number] [place] [address] Aug, [facility] [place] [facility] [address] [id number] [place] [address] Aug, [facility] [place] [facility] [address] [id number] [place] [id number] Aug, [facility] [place] [facility] [address] [id number] [place] [address] Aug, [facility] [place] [facility] [address] [id number] [place] [address] Aug, [facility] [place] [facility] [address] [id number] [place] Aug, [facility] [place] [facility] [address] [id number] [place] [address] 17 Aug, 2013 [facility] [place] [facility] [address] [id number] [place] [address]- [address] 17 Aug, 2013 [facility] [place] [facility] [address] [id number] [place] [address] Aug, [facility] [place] [facility] [address] [id number] [place] [address]- [address] Aug, [facility] [place] [facility] [address] [id number] [place] [address]- [address] Aug, [facility] [place] [facility] [address] [id number] [place] [address]- [address] Aug, [facility] [place] [facility] [address] [id number] [place] [address] Aug, [facility] [place] [facility] [address] [id number] [place] [address] July, [facility] [place] [facility] [address] [id number] [place] [address] July, [facility] [place] [facility] [address] [id number] [place] [address]- [address] July, [facility] [place] [facility] [address] [id number] [place] [address]- [address] July, [facility] [place] [facility] [address] [id number] [place] [address] July, [facility] [place] [facility] [address] [id number] [place] [address]- [address] Apr, [facility] [place] [facility] [address] [id number] [place] [address]- 09[address] Feb, [facility] [place] [facility] [address] [id number] [place] [address]- 2484 Feb, [facility] [place] [facility] [address] [id number] [place] [address] Jan, [facility] [place] [facility] [address] [facility] [id number] [place] [address] Jan, [facility] [address] [facility] [id number] [place] [address] Aug, [facility] [address] [facility] [id number] [address] Jun, [facility] [address] [facility] [id number] [place] [address] Jun, IMMUNIZATIONS No Known Immunizations SOCIAL HISTORY Never Assessed REASON FOR VISIT [facility] PLAN OF CARE VITAL SIGNS MEDICATIONS Medication Instructions Dosage Frequency Start Date End Date Duration Status Ciprofloxacin 500 mg 1 tablet by Oral route every 12 hours for 10 day(s) July, Active Promethazine-Codeine 6.25-10 mg/5 mL 10 mL by Oral route every 6 hours for 7 day(s) Jan, Active Bactrim DS 800-160 mg 1 tablet by Oral route 2 times per day for 7 day(s) Aug, Active Pyridium 100 mg 1 tablet by Oral route 3 times per day for 3 day(s) will discolor urine July, Active Augmentin 875-125 mg 1 tablet by Oral route 2 times per day for 10 day(s) Jan, Active RESULTS No Results PROCEDURES No Known [...]
--- OUTSIDE RECORDS SUMMARY | 2018-06-09 12:09 | XMS REPORT | Continuity of Care Document ---
Author Organization Unknown Address Unknown Allergies Active Description Code Type Severity Reaction Onset Reported/Identified Relationship to Patient Clinical Status Yes Penicillins Drug Allergy 06/26/2011 Yes Penicillins Drug Allergy N/A N/A 06/26/2011 Yes Penicillins [id number] Drug Allergy Mild N/A 07/17/2011 Medications There is no data. Problems Date Dx Coded Attending Type Code Diagnosis Diagnosed By 06/26/2011 SHELBY JUDGE MD 477.0 ALLERGIC RHINITIS - POLLEN 06/26/2011 477.0 ALLERGIC RHINITIS - POLLEN 06/26/2011 TIARA CHOWDARY APRN 477.0 ALLERGIC RHINITIS - POLLEN 06/26/2011 HILDA HUITRON DO 477.0 ALLERGIC RHINITIS - POLLEN 06/26/2011 TERENCE HILLIARDS, NIGEL Presley 477.0 ALLERGIC RHINITIS - POLLEN 06/26/2011 WHITE ARMINDASNIGEL 477.0 ALLERGIC RHINITIS - POLLEN 06/26/2011 TIARA CHOWDARY APRN 477.0 ALLERGIC RHINITIS - POLLEN 07/17/2011 Ot 959.3 07/17/2011 Ot E000.8 07/17/2011 Ot E849.0 07/17/2011 Ot E885.9 02/01/2012 SHELBY JUDGE MD 461.9 SINUSITIS ACUTE 02/01/2012 SHELBY JUDGE MD 786.2 cough 02/01/2012 461.9 SINUSITIS ACUTE 02/01/2012 786.2 cough 02/01/2012 TIARA CHOWDARY APRN R 461.9 SINUSITIS ACUTE 02/01/2012 TIARA CHOWDARY APRN 786.2 cough 02/01/2012 HILDA HUITRON DO 461.9 SINUSITIS ACUTE 02/01/2012 HILDA HUITRON DO K 786.2 cough 02/01/2012 WHITE ARMINDAS, NIGEL D 461.9 SINUSITIS ACUTE 02/01/2012 WHITE ARMINDASNIGEL D 786.2 cough 02/01/2012 WHITE ARMINDASNIGEL D 461.9 SINUSITIS ACUTE 02/01/2012 WHITE DDS, NIGEL D 786.2 cough 02/01/2012 RICARDA STATION CHIEF, TIARA R 461.9 SINUSITIS ACUTE 02/01/2012 RICARDA STATION CHIEF, TIARA R 786.2 cough 04/14/2012 132.0 PEDICULOSIS CAPITIS 04/14/2012 RICARDA STATION CHIEF, TIARA R 132.0 PEDICULOSIS CAPITIS 04/14/2012 HUITRON DO, HILDA K 132.0 PEDICULOSIS CAPITIS 04/14/2012 WHITE DDS, NIGEL D 132.0 PEDICULOSIS CAPITIS 04/14/2012 WHITE DDS, NIGEL D 132.0 PEDICULOSIS CAPITIS 04/14/2012 RICARDA STATION CHIEF, TIARA R 132.0 PEDICULOSIS CAPITIS 07/17/2013 RICARDA STATION CHIEF, TIARA R 599.0 URINARY TRACT INFECTION 07/17/2013 HUITRON DO, HILDA K 599.0 URINARY TRACT INFECTION 07/17/2013 WHITE DDS, NIGEL D 599.0 URINARY TRACT INFECTION 07/17/2013 WHITE DDS, NIGEL D 599.0 URINARY TRACT INFECTION 07/17/2013 RICARDA FREDERICKN, TIARA R 599.0 URINARY TRACT INFECTION 08/25/2013 WHITE DDS, NIGEL D 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 08/25/2013 RICARDA ANN TIARA R 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 05/19/2015 MATHIEU AGARWAL APRN Ot Z00.00 05/19/2015 MATHIEU AGARWAL APRN Ot Z86.19 03/09/2018 MATHIEU AGARWAL APRN Ot Z00.00 ENCNTR FOR GENERAL ADULT MEDICAL EXAM W/ 03/09/2018 MATHIEU AGARWAL APRN Ot Z86.19 PERSONAL HISTORY OF OTHER INFECTIOUS AND 03/09/2018 LI HELTON Ot J06.9 ACUTE UPPER RESPIRATORY INFECTION, UNSPE 03/09/2018 LI HELTON Ot R05 COUGH 03/09/2018 LI HELTON Ot Z20.2 CONTACT W AND EXPOSURE TO INFECT W A SEX 03/09/2018 LI HELTON Ot Z88.0 ALLERGY STATUS TO PENICILLIN 03/11/2018 LI HELTON Ot J06.9 ACUTE UPPER RESPIRATORY INFECTION, UNSPE 03/11/2018 LI HELTON Ot R05 COUGH 03/11/2018 LI HELTON Ot Z20.2 CONTACT W AND EXPOSURE TO INFECT W A SEX 03/11/2018 LI HELTON Ot Z88.0 ALLERGY STATUS TO PENICILLIN Procedures Code [place] [address] UA W/ CULTURE IF INDICATED 07/17/2013 92509 CULTURE URINE 07/19/2013 71454 UA W/ CULTURE IF INDICATED 08/08/2013 35619 CULTURE URINE 08/10/2013 79322 ROUTINE VENIPUNCTURE 08/25/2013 30720 CBC 08/25/2013 [id number] GFR CALC (RESULT ONLY) 08/25/2013 38593 CMP 08/25/2013 59869 TSH 08/25/2013 19504 HEPATITIS PROFILE 08/26/2013 [id number] HCV INDEX (RESULT ONLY) 08/26/2013 93231 AMERITOX 08/27/2013 Results Test Result Range CBC - 06/10/17 08:43 WHITE BLOOD CELL COUNT 7.1 Thousand/uL 3.8-10.8 RED BLOOD CELL COUNT 5.14 Million/uL 3.80-5.10 HEMOGLOBIN 15.0 g/dL 11.7-15.5 HEMATOCRIT 45.9 % 35.0-45.0 MCV 89.3 fL 80.0-100.0 MCH 29.2 pg 27.0-33.0 MCHC 32.7 g/dL 32.0-36.0 RDW 12.4 % 11.0-15.0 PLATELET COUNT 265 Thousand/uL 140-400 MPV 10.0 fL 7.5-12.5 ABSOLUTE NEUTROPHILS 3323 cells/uL 3460-2844 ABSOLUTE LYMPHOCYTES 3010 cells/uL 850-3900 ABSOLUTE MONOCYTES 518 cells/uL 200-950 ABSOLUTE EOSINOPHILS 156 cells/uL 15-500 ABSOLUTE BASOPHILS 92 cells/uL 0-200 NEUTROPHILS 46.8 % NRG LYMPHOCYTES 42.4 % NRG MONOCYTES 7.3 % NRG EOSINOPHILS 2.2 % NRG BASOPHILS 1.3 % NRG THYROID ANALYZER - 06/10/17 08:43 TSH 1.68 mIU/L NRG Complete urinalysis with reflex to culture - 03/09/18 12:11 Urine color determination YELLOW NRG Urine clarity determination VERY CLOUDY NRG Urine pH measurement by test strip 5 5-9 Specific gravity of urine by test strip 1.025 1.016- 1.022 Urine protein assay by test strip, semi-quantitative 2+ NEGATIVE Urine glucose detection by automated test strip NEGATIVE NEGATIVE Erythrocytes detection in urine sediment by light microscopy 2+ NEGATIVE Urine ketones detection by automated test strip NEGATIVE NEGATIVE Urine nitrite detection by test strip NEGATIVE NEGATIVE Urine total bilirubin detection by test strip NEGATIVE NEGATIVE Urine urobilinogen measurement by automated test strip (mass/volume) NORMAL NORMAL Urine leukocyte esterase detection by dipstick 2+ NEGATIVE Automated urine sediment erythrocyte count by microscopy (number/high power field) NONE NRG Automated urine sediment leukocyte count by microscopy (number/high power field ) [HPF] NRG Bacteria detection in urine sediment by light microscopy LARGE NRG Squamous epithelial cells detection in urine sediment by light microscopy 5-10 NRG Crystals detection in urine sediment by light microscopy PRESENT NRG Casts detection in urine sediment by light microscopy NONE NRG Mucus detection in urine sediment by light microscopy MODERATE NRG Complete urinalysis with reflex to culture YES NRG Amorphous sediment detection in urine sediment by light microscopy MOD TYREE URATES NRG Bacterial urine culture - 03/09/18 12:11 Bacterial urine culture SEE REPORT NRG COLONY COUNT . NRG Chlamydia DNA amp probe, urine - 03/09/18 12:11 Chlamydia DNA amp probe, urine Not Detected Not Detected Urine Neisseria gonorrhoeae DNA assay - 03/09/18 12:11 Gonorrhea amp DNA-urine Not Detected Not Detected Influenza virus A and B antigen detection - 03/09/18 12:14 FLU RESULT NEGATIVE FOR INFLUENZA A AND B ANTIGENS BY IA NRG Encounters ACCT No. Visit Date/Time Discharge Status Pt. Type Provider Facility Loc./Unit Complaint [id number] 03/16/2014 15:23:00 03/16/2014 23:59:59 CLS Outpatient TIARA CHOWDARY APRN [id number] 08/27/2013 08:00:00 08/27/2013 23:59:59 CLS Outpatient NIGEL PRATT DDS [id number] 08/13/2013 09:54:00 08/13/2013 23:59:59 CLS Outpatient NIGEL PRATT DDS [id number] 08/08/2013 14:24:00 08/08/2013 23:59:59 CLS Outpatient HILDA HIUTRON DO [id number] 07/17/2013 10:50:00 07/17/2013 23:59:59 CLS Outpatient TIARA CHOWADRY APRN [id number] 04/14/2012 13:54:00 04/14/2012 23:59:59 CLS Outpatient [id number] 02/01/2012 15:41:00 02/01/2012 23:59:59 CLS Outpatient SHELBY JUDGE MD [id number] 03/09/2018 11:55:00 03/09/2018 13:12:00 DIS Emergency LI HELTON [facility] ER COUGH/CONGESTION/POSS STD EXPOSURE [id number] 05/19/2015 09:36:00 05/19/2015 23:59:59 CLS Outpatient MATHIEU AGARWAL APRN [facility] RAD HISTORY OF HEPATITIS [id number] 06/09/2018 12:02:00 ACT Emergency ALON PELAEZ MD [facility] ER LEFT HAND SWELLING [id number] 07/17/2011 11:02:00 Document Registration [id number] 07/24/2017 11:45:00 07/24/2017 23:59:59 CLS Outpatient MATHIEU AGARWAL [facility] [id number] 06/10/2017 08:20:00 Document Registration
[2018-06-09] MEDS ORDERED: LIDOCAINE 1% INJ 20 ML 20 ML VIAL INJ ONE (12:30)
[2018-06-09] MEDS ORDERED: cefTRIAXone 1,000 MG/2.86 ml vial (IM ONLY) ONE (12:33)
[2018-06-09] MEDS ORDERED: CEPH-507 PO (12:33)
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
[2018-06-09 13:00] VITALS: BP 167/97
[2018-06-10] MEDS ORDERED: cefTRIAXone 1,000 MG/2.86 ml vial (IM ONLY) IM SCH (09:00)
== END 2018-06-09 13:05 | disposition home or self-care (01) ==
LOC: EDUNIT# 12:01 → ER 12:02
DX: L03.114 Cellulitis of left upper limb (principal); F12.10 Cannabis abuse, uncomplicated; F15.10 Other stimulant abuse, uncomplicated; F17.210 Nicotine dependence, cigarettes, uncomplicated; Z88.0 Allergy status to penicillin
CPT/HCPCS: 99284

== ENCOUNTER 2018-12-23 19:58 | Observation (INO) | payer SELFPAY ==
[~2018-12-23] VITALS: Ht 167 cm; Wt 74.7 kg
[~2018-12-23 19:58] MED LIST changes: +CEPH-507 PO
[2018-12-23] MEDS ORDERED: NS IV 1000 ML 1,000 ML IV ONE (20:16)
[2018-12-23] MEDS ORDERED: fentaNYL INJECTION 100 MCG/2 ML AMP IVP STA (20:16)
[2018-12-23] MEDS ORDERED: HOLD METFORMIN - RECEIVED CONTRAST 20 ML VIAL IV SCH ×2 (20:30→21:00)
[2018-12-23] MEDS ORDERED: NS 100 ML (IVPB) BAG IV ONE ×2 (20:30→21:00)
[2018-12-23] MEDS ORDERED: IOHEXOL 350 MG/ML 100 ML (OMNIPAQUE 350) VIAL IV ONE ×2 (20:30→21:00)
[2018-12-23 20:31] LABS: BILIRUBIN,URINE NEGATIVE (NEGATIVE); CLARITY,URINE CLEAR; COLOR,URINE YELLOW; GLUCOSE, URINE (UA) NEGATIVE (NEGATIVE); KETONES,URINE NEGATIVE (NEGATIVE); LEUKOCYTE ESTERASE ,URINE 2+ (NEGATIVE); NITRITE,URINE NEGATIVE (NEGATIVE); PH,URINE 6 (5-9); PROTEIN,URINE NEGATIVE (NEGATIVE)
[2018-12-23 20:40] LABS: BACTERIA,URINE TRACE /HPF; RBC,URINE 0-2 /HPF; WBC,URINE 0-2 /HPF
[2018-12-23 20:41] LABS: AMORPHOUS SEDIMENT,UR FEW AMOR URATES /LPF
[2018-12-23 20:43] LABS: AMPHETAMINE SCREEN, URINE POSITIVE (NEGATIVE); BARBITURATE SCREEN URINE NEGATIVE (NEGATIVE); BENZODIAZEPINES SCREEN URINE NEGATIVE (NEGATIVE); CANNABINOID SCREEN, URINE NEGATIVE (NEGATIVE); COCAINE SCREEN URINE NEGATIVE (NEGATIVE); METHADONE STAT NEGATIVE (NEGATIVE); METHAMPHETAMINE SCREEN URINE S NEGATIVE (NEGATIVE); OPIATE SCREEN URINE NEGATIVE (NEGATIVE); OXYCODONE STAT NEGATIVE (NEGATIVE); PROPOXYPHENE STAT NEGATIVE (NEGATIVE); TRICYCLIC ANTIDEPRESSANTS SCRE NEGATIVE (NEGATIVE)
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
[2018-12-23] MEDS ORDERED: LORazepam INJ 2 MG/ML (ATIVAN) VIAL IVP ONE (21:00)
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
--- NOTE | 2018-12-23 21:40 | NUR ---
PT RETURNS FROM CT DEPT IN STABLE CONDITION
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
[2018-12-23 22:57] VITALS: BP 171/105
[2018-12-23 22:59] VITALS: BP 163/99
[2018-12-23 23:15] VITALS: BP 159/107
[2018-12-23 23:30] VITALS: BP 160/98
[2018-12-23 23:45] VITALS: BP_SYST 160; BP_SYST 167; BP_DIAS 113; BP_DIAS 98
[2018-12-23] MEDS ORDERED: LORazepam INJ 2 MG/ML (ATIVAN) VIAL IV PRN (23:45)
[2018-12-23] MEDS ORDERED: D5 1/2 NS W/KCL 20 MEQ/L 1,000 ML IV SCH (23:45)
[2018-12-23] MEDS: fentaNYL INJECTION 100 MCG/2 ML AMP IV PRN (23:57)
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
[2018-12-24] VITALS (19 sets, daily range): BP systolic 121–171; BP diastolic 78–131
--- NOTE | 2018-12-24 | NUR ---
DR TIWARI IN ROOM TO SEE PT AT THIS TIME. VERBAL ORDERS GIVEN TO DECREASE FLUID RATE FROM 150 TO 50 ML/HR
[2018-12-24] MEDS ORDERED: RT-ALBUTEROL/IPRATROPIUM 3 ML (DUONEB) VIAL INH PRN (01:30)
[2018-12-24] MEDS: RT-ALBUTEROL/IPRATROPIUM 3 ML (DUONEB) VIAL INH SCH ×4 (02:50→21:44)
[2018-12-24 04:11] LABS: BASOPHILS % (AUTO) 0 % (0-10); EOSINOPHILS # (AUTO) 0.1 10^3/uL (0.0-0.3); EOSINOPHILS % (AUTO) 1 % (0-10); HEMATOCRIT 42 % (35-52); HEMOGLOBIN 13.9 G/DL (11.5-16.0); LYMPHOCYTES # (AUTO) 2.6 X 10^3 (1.0-4.0); LYMPHOCYTES % (AUTO) 27 % (12-44); MEAN CORPUSCULAR HEMOGLOBIN 29 PG (25-34); MEAN CORPUSCULAR HGB CONC 33 G/DL (32-36); MEAN CORPUSCULAR VOLUME 88 FL (80-99); MONOCYTES # (AUTO) 0.6 X 10^3 (0.0-1.0); MONOCYTES % (AUTO) 6 % (0-12); NEUTROPHILS # (AUTO) 6.5 X 10^3 (1.8-7.8); NEUTROPHILS % (AUTO) 67 % (42-75); PLATELET COUNT 213 10^3/uL (130-400); RED CELL DISTRIBUTION WIDTH 13.1 % (10.0-14.5); WHITE BLOOD COUNT 9.7 10^3/uL (4.3-11.0)
[2018-12-24 04:32] LABS: ALANINE AMINOTRANSFERASE 24 U/L (0-55); ALBUMIN 3.9 GM/DL (3.2-4.5); ALKALINE PHOSPHATASE 45 U/L (40-136); BILIRUBIN,TOTAL 0.3 MG/DL (0.1-1.0); BUN/CREATININE RATIO 21; CARBON DIOXIDE 24 MMOL/L (21-32); CHLORIDE 105 MMOL/L (98-107); CREATININE SERUM 0.71 MG/DL (0.60-1.30); GFR ESTIMATED > 60; GLUCOSE 126 MG/DL (70-105); MAGNESIUM 1.9 MG/DL (1.6-2.4); SODIUM 138 MMOL/L (135-145); TOTAL PROTEIN 6.9 GM/DL (6.4-8.2)
[2018-12-24] MEDS ORDERED: POTASSIUM CL 10MEQ/50ML IVPB 50 ML IV SCH (06:00)
[2018-12-24] MEDS ORDERED: KCL 20 MEQ TAB (K-DUR) PO SCH (06:00)
[2018-12-24] MEDS ORDERED: MAGNESIUM 1 GM/100 ML IVPB 100 ML IV SCH (06:00)
[2018-12-24] MEDS: fentaNYL INJECTION 100 MCG/2 ML AMP IV PRN (06:24)
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
--- NOTE | 2018-12-24 08:29 | Diagnostic Imaging Report ---
INDICATION: Multiple left rib fractures and left pneumothorax. Time of exam 2:10 AM Correlation is made with prior chest one day earlier. Heart size is stable. There appears to be a very small left apical pneumothorax. A previously noted rib fractures on the left are not well seen. Lungs are clear. No effusion is seen. IMPRESSION: Left apical pneumothorax. Dictated by: Dictated on workstation # [id number]
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
--- NOTE | 2018-12-24 11:29 | NUR ---
PATIENT STATES SHE DOES NOT TAKE ANY MEDICATIONS CURRENTLY. SHE STATES SHE IS SUPPOSED TO TAKE METFORMIN BUT SHE STOPPED IT BECAUSE SHE DID NOT LIKE THE SIDE EFFECTS. SHE HAS BEEN OUT OF IT FOR AWHILE. SHE DOES NOT TAKE ANYTHING OTC.
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
[2018-12-24] MEDS: HYDROcodone/APAP 5 MG/325 MG (LORTAB) TAB PO PRN ×2 (17:59→23:48)
[2018-12-25] MEDS: RT-ALBUTEROL/IPRATROPIUM 3 ML (DUONEB) VIAL INH SCH (03:10)
[2018-12-25 04:00] VITALS: BP 119/75
--- NOTE | 2018-12-25 06:11 | Diagnostic Imaging Report ---
INDICATION: Pneumothorax follow-up There is a left pneumothorax measuring about 9 mm at the apex. This is not appreciably changed from the previous day's comparison exam. IMPRESSION: Stable small left pneumothorax. Dictated by: Dictated on workstation # [id number]
[2018-12-25 08:40] VITALS: BP 120/74
[2018-12-25] MEDS: HYDROcodone/APAP 5 MG/325 MG (LORTAB) TAB PO PRN (08:41)
--- NOTE | 2018-12-25 08:51 | Progress Note - Surgery ---
[facility] 12/25/18 0851: Subjective Date Seen by a Provider: Dec 25, 2018 Time Seen by a Provider: 07:25 Subjective/Events-last exam Patient is doing better. Says she is in pain at the moment, but has not had a pain pill since last night. Patient is ready to go home. Also mentioned that she wants to stop smoking. X-Ray report stated that the pneumothorax has not increased from yesterday. Patient states that she does not have any trouble breathing and only pain she is experiencing is in her ribs. Review of Systems General: No Chills, No Other (fevers) Pulmonary: No Dyspnea; Cough (From smoking) Cardiovascular: Chest Pain (Rib Pain); No: Palpitations, Edema, Lt Headedness Gastrointestinal: No: Nausea, Vomiting, Abdominal Pain Genitourinary: Other (no symptoms reported) Objective Exam Vital Signs Date Time Temp Pulse Resp B/P (MAP) Pulse Ox O2 Delivery O2 Flow Rate FiO2 12/25/18 04:00 36.5 92 18 119/75 (90) 93 Room Air 12/24/18 23:59 37.2 102 16 121/78 (92) 93 Room Air 12/24/18 21:44 94 Room Air 12/24/18 21:00 Room Air 12/24/18 20:00 36.6 88 16 146/91 (109) 96 Room Air 12/24/18 12:00 36.6 12/24/18 12:00 81 15 141/102 (115) 96 Room Air 12/24/18 11:00 83 156/96 (116) 96 Room Air 12/24/18 10:00 68 18 151/91 (111) 97 Room Air 12/24/18 09:28 97 Room Air 12/24/18 09:00 67 15 135/91 (106) 94 Room Air I & O 12/25/18 07:00 Intake Total 1950 ml Output Total 2150 ml Balance -200 ml Capillary Refill : Less Than 3 SecondsLess Than 3 Seconds General Appearance: No Apparent Distress, WD/WN, Other (WAILING, SCREAMING, THRASHING ALL OVER, VERY UNCOOPERATIVE, OBVIOUSLY UNDER THE INFLUENCE OF SOME SUBSTANCE/S. VERY DISHEVELED. PROFUSELY DIAPHORETIC. BEHAVIOR NOTED ABOVE) Neck: Non Tender, Supple Respiratory: Lungs Clear, No Accessory Muscle Use, No Respiratory Distress, Decreased Breath Sounds (In left apex); No Rhonci, No Stridor, No Wheezing; Other (Does have pain in left rib area. Using IS and was at a max of 2250) Cardiovascular: Regular Rate, Rhythm, No Edema, No Murmur Peripheral Pulses: 2+ Dorsalis Pedis (R), 2+ Left Dors-Pedis (L), 2+ Radial Pulses (R), 2+ Radial Pulses (L) Gastrointestinal: non tender, soft, no organomegaly, no pulsatile mass Extremity: No Calf Tenderness, No Pedal Edema Neurologic/Psychiatric: Alert, Oriented x3, No Motor/Sensory Deficits Skin: Normal Color, Warm/Dry Assessment/Plan Assessment/Plan Assessment/Plan Pneumothorax Left Rib Fracture Pneumothorax has not increased today. Asymptomatic with Pneumothorax Can send home Pain management Continue breathing exercises Sap Abap Developer on smoking cessation. Clinical Quality Measures DVT/VTE Risk/Contraindication: Risk Factor Score Per Nursin RFS Level Per Nursing on Admit: 4+=Very High RAFIQ FULLER DO 12/25/18 1143: Subjective Time Seen by a Provider: 11:08 Subjective/Events-last exam Pt seen and examined, denies SOB. Assessment/Plan Assessment/Plan Assessment/Plan D/C Home, f/u in clinic next saturday and get CXR prior to seeing me. Supervisory-Addendum Brief Verification & Attestation Participated in pt care: history, MDM, physical Personally performed: exam, history, MDM Care discussed with: Medical Student Procedures: n/a Verification and Attestation of Medical Student E/M Service A medical student performed and documented this service in my presence. I reviewed and verified all information documented by the medical student and made modifications to such information, when appropriate. I personally performed the physical exam and medical decision making. Rafiq Fuller, Dec 25, 2018,11:[address] [facility] Dec 25, 2018 08:51 RAFIQ FULLER DO Dec 25, 2018 11:43
--- NOTE | 2018-12-25 11:45 | NUR ---
CM/MAR spoke with patient again this day and she stated she is to discharge. Patient is still not interested in any services for domestic violence or pressing charges on her . She stated that she will be returning to their home and that he is supposed to be staying with his mother for a bit. She has her sister in law bringing her clothes and has transportation home.
--- NOTE | 2018-12-25 11:48 | Discharge Inst-Surgical ---
Discharge Inst-Surgical Depart Medication/Instructions New, Converted or Re-Newed RX: Other (no Rx needed) Patient Instructions Follow up Appt: Make appointment for Saturday. [phone] Instructions: No strenuous activity. May shower in 24 hours, no tub bath or soaking. Use incentive spirometer at home as directed. No Smoking Symptoms to Report: Appetite Changes, Extremity Discoloration, Numbness/Tingling, Swelling Increased, Bleeding Excessive, Eyesight Changes, Pain Increased, Urine Color Change, Constipation(Persistent), Fever over 101 degree F, Pain/Pressure in chest, Urinating Difficulty, Cough Up/Vomit Blood, Heart Beat Irreg/Pounding, Pain/Pressure in jaw, Cramps in feet or legs, Lightheadedness, Pain/Pressure in shoulder, Diarrhea(Persistent), Memory Changes Suddenly, Questions/Concerns, Weight gain consecutive days, Dizziness/Fainting, Nausea/Vomiting, Shortness of Breath, Weight gain over 2 pounds If questions or concerns contact your physician Or seek help at emergency department. Activity Activity as Tolerated: Yes Driving Instructions: You May Drive Incentive Spirometry: Every 2 Hours While Awake Avoid ALL Tobacco Products: Smoking of Any Kind Diet Discharge Diet: No Restrictions Skin/Wound Care Bathing Instructions: GUY Orellana DO Dec 25, 2018 11:48
[2018-12-25 16:21] VITALS: BP 120/74
== END 2018-12-25 12:10 | disposition home or self-care (01) ==
LOC: EDUNIT# 19:58 → ER 20:00 → ICU 22:05 → CSD 12-24 20:06
PROVIDERS: ADMIT Surgery; ATTEND Surgery
DX: S27.0XXA Traumatic pneumothorax, initial encounter (principal); S22.42XA Multiple fractures of ribs, left side, initial encounter for closed fracture; E11.9 Type 2 diabetes mellitus without complications; F17.210 Nicotine dependence, cigarettes, uncomplicated; F19.90 Other psychoactive substance use, unspecified, uncomplicated; Y08.89XA Assault by other specified means, initial encounter; Z88.0 Allergy status to penicillin; Z79.4 Long term (current) use of insulin; Z83.3 Family history of diabetes mellitus
CPT/HCPCS: 36415; 70450; 71045; 71260; 72125; 72128; 72131; 74177; 80053; 80306; 81000; 82962; 83735; 84100; 85025; 87081; 93005; 93041; 94640; 94664; 96361; 96374; 96375; G0378

== ENCOUNTER → 2019-01-05 | Outpatient (CLI) | payer SELFPAY ==
--- NOTE | 2019-01-05 13:28 | Diagnostic Imaging Report ---
INDICATION: Pneumothorax. Comparison made with prior examination of 12/25/2018. FINDINGS: The previously seen left pneumothorax has resolved. The heart size is normal. Minimal scarring left lung base. Mediastinum is unremarkable. IMPRESSION: Interval resolution of the previously seen left pneumothorax. Mild scarring left lung base Dictated by: Dictated on workstation # [id number]
== END ==
LOC: RAD 13:08
PROVIDERS: ATTEND Surgery
DX: J93.83 Other pneumothorax (principal); J98.4 Other disorders of lung
CPT/HCPCS: 71046

== ENCOUNTER 2019-05-26 13:08 | Emergency (ER) | payer SELFPAY ==
[~2019-05-26] VITALS: Ht 167 cm; Wt 77.0 kg
--- NOTE | 2019-05-26 13:21 | ED Fall/Injury ---
General Stated Complaint: SHOULDER AND RIB PAIN Source: patient Exam Limitations: no limitations History of Present Illness Date Seen by Provider: May 26, 2019 Time Seen by Provider: 13:19 Initial Comments To ER by private car with reports of right lateral ribs and left shoulder pain after walking her dog in the park, the dog saw a squirrel and took off dragging her along. Did not hit her head, this occurred just prior to arrival. Occurred: just prior to arrival Severity: moderate Injuries/Pain Location: upper extremity, chest Context: slipped Loss of Consciousness: no loss of consciousness Allergies and Home Medications Allergies Coded Allergies: Penicillins (Verified Adverse Reaction, Mild, 07/17/11) Home Medications No Active Prescriptions or Reported Meds Patient Home Medication List Home Medication List Reviewed: Yes Review of Systems Review of Systems Constitutional: see HPI Eyes: No Symptoms Reported Ears, Nose, Mouth, Throat: no symptoms reported Respiratory: see HPI Cardiovascular: no symptoms reported Genitourinary: no symptoms reported Musculoskeletal: see HPI Skin: no symptoms reported Psychiatric/Neurological: No Symptoms Reported Past Dyzzmzy-Peorwn-Osgjac Hx Patient Social History Drug of Choice: + IV METH Type Used: Cigarettes 2nd Hand Smoke Exposure: Yes Recent Hopitalizations: Yes Immunizations Up To Date Tetanus Booster (TDap): Unknown PED Vaccines UTD: Yes Past Medical History Surgeries: Yes Gallbladder Respiratory: No Cardiac: No Neurological: No 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 0oz. [id number]; 27.00 BMI Method:Stated General Appearance: WD/WN, no apparent distress HEENT: PERRL/EOMI, normal ENT inspection Neck: non-tender, full range of motion Respiratory: lungs clear, normal breath sounds, no respiratory distress, no accessory muscle use, other (right lateral chest tender to palpation but no ecchymosis abrasion or erythema.) Gastrointestinal: normal bowel sounds, non tender, soft Extremities: other (Limited range of motion to the left shoulder but no abrasion or ecchymosis or erythema) Neurologic/Psychiatric: alert, normal mood/affect, oriented x 3 Skin: normal color, warm/dry Cherelle Coma Score Best Eye Response: (4) Open Spontaneously Best Verbal Response: (5) Oriented Best Motor Response: (6) Obeys Commands Cherelle Total: 15 Progress/Results/Core Measures Results/Orders My Orders Orders - EKATERINA MUIR APRN Ribs/Unilateral With Chest (05/26/19 13:16) Hydrocodone/Apap 5/325 Tablet (Lortab 5 (05/26/19 13:30) Shoulder, Left, 3 Views (05/26/19 13:26) Medications Given in ED Current Medications Medications Dose Ordered Sig/Sd Route Start Time Stop Time Status Last Admin Dose Admin Acetaminophen/ Hydrocodone Bitart 1 tab ONCE ONCE PO 05/26/19 13:30 05/26/19 13:31 DC 05/26/19 13:26 1 TAB Vital Signs/I&O 05/26/19 13:10 Temp 36.5 Pulse 82 Resp 15 B/P (MAP) 154/111 (125) Pulse Ox 96 O2 Delivery Room Air Departure Impression Primary Impression: Rib contusion Qualified Codes: S20.211A - Contusion of right front wall of thorax, initial encounter Additional Impression: Shoulder sprain Qualified Codes: S43.402A - Unspecified sprain of left shoulder joint, initial encounter Disposition: 01 HOME, SELF-CARE Condition: Stable Departure-Patient Inst. Decision time for Depature: 14:01 Referrals: [facility] [place] (PCP/Family) Primary Care Physician Patient Instructions: Shoulder Sprain (DC), Bruised Rib Add. Discharge Instructions: 1. Tylenol and ibuprofen for pain control 2. Return to ER for any concerns 3. Follow-up with your doctor next week. Scripts No Active Prescriptions or Reported Meds EKATERINA MUIR APRN May 26, 2019 13:21
[2019-05-26] MEDS ORDERED: HYDROcodone/APAP 5 MG/325 MG (LORTAB) TAB PO ONE (13:30)
--- NOTE | 2019-05-26 13:42 | Diagnostic Imaging Report ---
EXAMINATION: Left shoulder, 3 views. INDICATION: Traumatic left shoulder pain. Patient reports fall and pulling injury. COMPARISON: None available. FINDINGS: No fracture or acute osseous abnormality. The bony alignment is maintained. The humeral head is well-seated in the glenohumeral joint. There is mild degenerative change of the acromioclavicular joint without evidence of acromioclavicular joint separation. There are old/healed fractures involving the left posterior 6th through 7th ribs. The soft tissues are unremarkable. IMPRESSION: No acute fracture or dislocation involving the left shoulder. Dictated by: Dictated on workstation # [id number]
--- NOTE | 2019-05-26 13:42 | Diagnostic Imaging Report ---
INDICATION: Fall walking the dog. Right rib pain. EXAMINATION: PA chest and right ribs, 3 views. FINDINGS: The PA chest shows the lungs to be clear. No pneumothorax or pleural effusion. The right ribs show no evidence of fractures. IMPRESSION: Negative PA chest and right ribs. Dictated by: Dictated on workstation # [id number]
[2019-05-26 14:06] VITALS: BP 154/111
--- OUTSIDE RECORDS SUMMARY | 2019-05-26 14:39 | XMS REPORT ---
Author Author Tara Jerome Organization [facility] Address [address] [place] [address] Care Team Providers Care Oil Field Caser Name Role Phone TIARA Jerome Unavailable PROBLEMS Type Condition ICD9-CM Code EWZ26-YO Code Onset Dates Condition S tatus SNOMED Code Problem Non-compliant behavior R46.89 Active 915810966 Problem Non compliance w medication regimen Z91.14 Active 534444036 Problem Tobacco abuse Z72.0 Active 334694 000 Problem Tobacco abuse counseling Z71.6 Activ e 028621627 Problem Essential hypertension I10 Active 72575666 Problem Elevated LDL cholesterol level E78.00 Active 780169232 Problem Hep C w/o coma, chronic B18.2 Active 773074511 Problem Methamphetamine abuse F15.10 Active 456649911 ALLERGIES No Information ENCOUNTERS Encounter Location Date Diagnosis [facility] [address] [id number] Jan, [facility] [address] [id number] [place] [address] Dec, [facility] [address] [id number] Nov, Dental examination Z01.20 [facility] [address] [id number] Oct, Dental examination Z01.20 [facility] [address] [id number] Oct, Dental examination Z01.20 [facility] [address] [id number] [place] [address] Oct, [facility] [address] [facility] [id number] [place] [address] July, Contact dermatitis, unspecif ied contact dermatitis type, unspecified trigger L25.9 [facility] [address] [address] Jun, Pre-diabetes R73.03 [place] [address] [address] Jun, Essential hypertension I10 ; Pre-diabete s R73.03 ; Elevated LDL cholesterol level E78.00 ; Hep C w/o coma, chronic B18.2 ; Non-compliant behavior R46.89 ; Methamphetamine abuse F15.10 ; Tobacco abuse Z72.0 ; Tobacco abuse counseling Z71.6 and Non compliance w medication regimen Z91.14 [place] [address] [address] Mar, [place] [address] [address] Nov, [facility] [address] [facility] [id number] [place] [address] July, Allergic contact dermatitis due to plants, except food L23.7 [place] [address] [address] July, Essential hypertension I10 ; Pre-diabete s R73.03 and Elevated LDL cholesterol level E78.00 [place] [address] [address] May, [place] [address] [address] Apr, [facility] [address] [address] Mar, History of hypertension Z86.79 ; History of hepatitis Z86.19 ; Substance abuse F19.10 ; Non compliance w medication regimen Z91.14 and Non- compliant behavior R46.89 [place] [address] [address] Feb, Pre-diabetes R73.09 [place] [address] [address] Feb, Bacterial conjunctivitis of right eye H1 0.[address] [address] Jun, Pre-diabetes R73.09 ; History of hepatit is Z86.19 and Substance abuse F19.[address] [address] Jun, [address] [address] Jun, Routine health maintenance Z00.[address] [address] 30 May, [address] [address] 17 May, 2015 History of hypertension Z86.79 ; History of hepatitis Z86.19 and Illicit drug use F19.[address] [address] 10 May, 2015 Routine health maintenance Z00.00 ; Hist ory of gestational diabetes Z86.32 ; History of hypertension Z86.79 ; History of hepatitis Z86.19 and Substance abuse F19.10 [facility] [address] [id number] Nov, Dental examination V72.2 [facility] [address] [id number] Nov, Encounter for dental examination V72.[address] [address] 24 Aug, 2014 Routine gynecological examination V72.31 ; Pap test, as part of routine gynecological examination V76.2 ; Screen for STD (sexually transmitted disease) V74.5 ; Breast cancer screening V76.10 ; Vaginal odor 625.8 and Tobacco abuse 305.[address] [address] 16 Aug, 2014 Vaginal discharge 623.5 and Vaginal odor 625.[address] [id number] [place] [address] 12 Aug, 2014 [facility] [address] [facility] [id number] [place] [address] 14 Jun, 2014 [facility] [address] [facility] [id number] [place] [address] Jun, [facility] [address] [id number] [place] [address] Mar, [facility] [address] [id number] [place] [address] Mar, [facility] [address] [id number] [place] [address] Oct, [facility] [address] [id number] [place] [address] Sep, [facility] [address] [id number] [place] [address] Sep, [facility] [address] [id number] [place] [address] Aug, [facility] [address] [id number] [place] [address] Aug, [facility] [address] [id number] [place] [address] Aug, [facility] [address] [facility] [id number] [place] [id number] Aug, [facility] [address] [facility] [id number] [place] [address] Aug, [facility] [address] [id number] [place] [address] Aug, [facility] [address] [id number] [place] [address] Aug, [facility] [address] [id number] [place] [address] Aug, [facility] [address] [id number] [place] [address] Aug, [facility] [address] [id number] [place] [address] Aug, [facility] [address] [id number] [place] [address] Aug, [facility] [address] [id number] [place] [address] Aug, [facility] [address] [id number] [place] [address] Aug, [facility] [address] [id number] [place] [address] Aug, [facility] [address] [id number] [place] [address] July, [facility] [address] [id number] [place] [address] July, [facility] [address] [id number] [place] [address] July, [facility] [address] [id number] [place] [address] July, [facility] [address] [id number] [place] [address] July, [facility] [address] [id number] [place] [address] Apr, [facility] [address] [id number] [place] [address] Feb, [facility] [address] [id number] [place] [address] Feb, [facility] [address] [id number] [place] [address] Jan, [facility] [address] [id number] [place] [address] Jan, [facility] [address] [id number] [place] [address] Aug, [facility] [address] [id number] [place] [address] Jun, [facility] [address] [facility] [id number] [place] [address] Jun, IMMUNIZATIONS No Known Immunizations SOCIAL HISTORY Never Assessed REASON FOR VISIT PLAN OF CARE VITAL SIGNS Height 66 in 2013-08-25 Weight 170 lbs 2013-08-25 Temperature 98.1 degrees Fahrenheit 2013-08-25 Heart Rate 96 bpm 2013-08-25 Respiratory Rate 20 2013-08-25 Blood pressure systolic 142 mmHg 2013-08-25 Blood pressure diastolic 94 mmHg 2013-08-25 MEDICATIONS Unknown Medications RESULTS No Results PROCEDURES Procedure Date Ordered Result Body Site COMPLETE CBC W/AUTO DIFF WBC August 25, 2013 ASSAY THYROID STIM HORMONE August 25, 2013 ACUTE HEPATITIS PANEL August 25, 2013 COMPREHEN METABOLIC PANEL August 25, 2013 VISIT August 25, 2013 VENIPUNCT, ROUTINE* August 25, 2013 INSTRUCTIONS MEDICATIONS ADMINISTERED No Known Medications MEDICAL [...]
--- OUTSIDE RECORDS SUMMARY | 2019-05-26 14:39 | XMS REPORT ---
Author Author Tara Jerome Organization [facility] Address [address] [place] [address] Care Team Providers Care Human Resources Trainee Name Role Phone TIARA Jerome Unavailable PROBLEMS Type Condition ICD9-CM Code BRB88-SH Code Onset Dates Condition S tatus SNOMED Code Problem Non-compliant behavior R46.89 Active 263198617 Problem Non compliance w medication regimen Z91.14 Active 965682507 Problem Tobacco abuse Z72.0 Active 735591 000 Problem Tobacco abuse counseling Z71.6 Activ e 459315776 Problem Essential hypertension I10 Active 19164468 Problem Elevated LDL cholesterol level E78.00 Active 298030772 Problem Hep C w/o coma, chronic B18.2 Active 009391448 Problem Methamphetamine abuse F15.10 Active 488428363 ALLERGIES No Information ENCOUNTERS Encounter Location Date Diagnosis [facility] [address] [id number] Jan, [facility] [address] [id number] [place] [address] Dec, [facility] [address] [id number] Nov, Dental examination Z01.20 [facility] [address] [id number] Oct, Dental examination Z01.20 [facility] [address] [id number] Oct, Dental examination Z01.20 [facility] [address] [id number] [place] [address] Oct, [facility] [address] [facility] [id number] [place] [address] July, Contact dermatitis, unspecif ied contact dermatitis type, unspecified trigger L25.9 [facility] [address] [address] Jun, Pre-diabetes R73.03 [place] [address] [address] Jun, Essential hypertension I10 ; Pre-diabete s R73.03 ; Elevated LDL cholesterol level E78.00 ; Hep C w/o coma, chronic B18.2 ; Non-compliant behavior R46.89 ; Methamphetamine abuse F15.10 ; Tobacco abuse Z72.0 ; Tobacco abuse counseling Z71.6 and Non compliance w medication regimen Z91.14 [place] [address] [address] Mar, [place] [address] [address] Nov, [facility] [address] [facility] [id number] [place] [address] July, Allergic contact dermatitis due to plants, except food L23.7 [place] [address] [address] July, Essential hypertension I10 ; Pre-diabete s R73.03 and Elevated LDL cholesterol level E78.00 [place] [address] [address] May, [place] [address] [address] Apr, [facility] [address] [address] Mar, History of hypertension Z86.79 ; History of hepatitis Z86.19 ; Substance abuse F19.10 ; Non compliance w medication regimen Z91.14 and Non- compliant behavior R46.89 [place] [address] [address] Feb, Pre-diabetes R73.09 [place] [address] [address] Feb, Bacterial conjunctivitis of right eye H1 0.[address] [address] Jun, Pre-diabetes R73.09 ; History of hepatit is Z86.19 and Substance abuse F19.[address] [address] Jun, [address] [address] Jun, Routine health maintenance Z00.[address] [address] 30 May, [address] [address] 17 May, 2015 History of hypertension Z86.79 ; History of hepatitis Z86.19 and Illicit drug use F19.[address] [address] 10 May, 2015 Routine health maintenance Z00.00 ; Hist ory of gestational diabetes Z86.32 ; History of hypertension Z86.79 ; History of hepatitis Z86.19 and Substance abuse F19.10 [facility] [address] [id number] Nov, Dental examination V72.2 [facility] [address] [id number] Nov, Encounter for dental examination V72.[address] [address] 24 Aug, 2014 Routine gynecological examination V72.31 ; Pap test, as part of routine gynecological examination V76.2 ; Screen for STD (sexually transmitted disease) V74.5 ; Breast cancer screening V76.10 ; Vaginal odor 625.8 and Tobacco abuse 305.[address] [address] 16 Aug, 2014 Vaginal discharge 623.5 and Vaginal odor 625.[address] [id number] [place] [address] 12 Aug, 2014 [facility] [address] [facility] [id number] [place] [address] 14 Jun, 2014 [facility] [address] [facility] [id number] [place] [address] Jun, [facility] [address] [id number] [place] [address] Mar, [facility] [address] [id number] [place] [address] Mar, [facility] [address] [id number] [place] [address] Oct, [facility] [address] [id number] [place] [address] Sep, [facility] [address] [id number] [place] [address] Sep, [facility] [address] [id number] [place] [address] Aug, [facility] [address] [id number] [place] [address] Aug, [facility] [address] [id number] [place] [address] Aug, [facility] [address] [facility] [id number] [place] [id number] Aug, [facility] [address] [facility] [id number] [place] [address] Aug, [facility] [address] [id number] [place] [address] Aug, [facility] [address] [id number] [place] [address] Aug, [facility] [address] [id number] [place] [address] Aug, [facility] [address] [id number] [place] [address] Aug, [facility] [address] [id number] [place] [address] Aug, [facility] [address] [id number] [place] [address] Aug, [facility] [address] [id number] [place] [address] Aug, [facility] [address] [id number] [place] [address] Aug, [facility] [address] [id number] [place] [address] Aug, [facility] [address] [id number] [place] [address] July, [facility] [address] [id number] [place] [address] July, [facility] [address] [id number] [place] [address] July, [facility] [address] [id number] [place] [address] July, [facility] [address] [id number] [place] [address] July, [facility] [address] [id number] [place] [address] Apr, [facility] [address] [id number] [place] [address] Feb, [facility] [address] [id number] [place] [address] Feb, [facility] [address] [id number] [place] [address] Jan, [facility] [address] [id number] [place] [address] Jan, [facility] [address] [id number] [place] [address] Aug, [facility] [address] [id number] [place] [address] Jun, [facility] [address] [facility] [id number] [place] [address] Jun, IMMUNIZATIONS No Known Immunizations SOCIAL HISTORY Never Assessed REASON FOR VISIT PLAN OF CARE VITAL SIGNS MEDICATIONS Unknown [...]
--- OUTSIDE RECORDS SUMMARY | 2019-05-26 14:39 | XMS REPORT ---
Author Author Tara Jerome Organization [facility] Address [address] [place] [address] Care Team Providers Care [employer] Operations Officer Name Role Phone TIARA Jerome Unavailable PROBLEMS Type Condition ICD9-CM Code YIC29-MC Code Onset Dates Condition S tatus SNOMED Code Problem Non-compliant behavior R46.89 Active 370853729 Problem Non compliance w medication regimen Z91.14 Active 995195247 Problem Tobacco abuse Z72.0 Active 156029 000 Problem Tobacco abuse counseling Z71.6 Activ e 737555315 Problem Essential hypertension I10 Active 69098356 Problem Elevated LDL cholesterol level E78.00 Active 622811617 Problem Hep C w/o coma, chronic B18.2 Active 113271716 Problem Methamphetamine abuse F15.10 Active 016322326 ALLERGIES No Information ENCOUNTERS Encounter Location Date Diagnosis [facility] [address] [id number] Jan, [facility] [address] [id number] [place] [address] Dec, [facility] [address] [id number] Nov, Dental examination Z01.20 [facility] [address] [id number] Oct, Dental examination Z01.20 [facility] [address] [id number] Oct, Dental examination Z01.20 [facility] [address] [id number] [place] [address] Oct, [facility] [address] [facility] [id number] [place] [address] July, Contact dermatitis, unspecif ied contact dermatitis type, unspecified trigger L25.9 [facility] [address] [address] Jun, Pre-diabetes R73.03 [place] [address] [address] Jun, Essential hypertension I10 ; Pre-diabete s R73.03 ; Elevated LDL cholesterol level E78.00 ; Hep C w/o coma, chronic B18.2 ; Non-compliant behavior R46.89 ; Methamphetamine abuse F15.10 ; Tobacco abuse Z72.0 ; Tobacco abuse counseling Z71.6 and Non compliance w medication regimen Z91.14 [place] [address] [address] Mar, [place] [address] [address] Nov, [facility] [address] [facility] [id number] [place] [address] July, Allergic contact dermatitis due to plants, except food L23.7 [place] [address] [address] July, Essential hypertension I10 ; Pre-diabete s R73.03 and Elevated LDL cholesterol level E78.00 [place] [address] [address] May, [place] [address] [address] Apr, [facility] [address] [address] Mar, History of hypertension Z86.79 ; History of hepatitis Z86.19 ; Substance abuse F19.10 ; Non compliance w medication regimen Z91.14 and Non- compliant behavior R46.89 [place] [address] [address] Feb, Pre-diabetes R73.09 [place] [address] [address] Feb, Bacterial conjunctivitis of right eye H1 0.[address] [address] Jun, Pre-diabetes R73.09 ; History of hepatit is Z86.19 and Substance abuse F19.[address] [address] Jun, [address] [address] Jun, Routine health maintenance Z00.[address] [address] 30 May, [address] [address] 17 May, 2015 History of hypertension Z86.79 ; History of hepatitis Z86.19 and Illicit drug use F19.[address] [address] 10 May, 2015 Routine health maintenance Z00.00 ; Hist ory of gestational diabetes Z86.32 ; History of hypertension Z86.79 ; History of hepatitis Z86.19 and Substance abuse F19.10 [facility] [address] [id number] Nov, Dental examination V72.2 [facility] [address] [id number] Nov, Encounter for dental examination V72.[address] [address] 24 Aug, 2014 Routine gynecological examination V72.31 ; Pap test, as part of routine gynecological examination V76.2 ; Screen for STD (sexually transmitted disease) V74.5 ; Breast cancer screening V76.10 ; Vaginal odor 625.8 and Tobacco abuse 305.[address] [address] 16 Aug, 2014 Vaginal discharge 623.5 and Vaginal odor 625.[address] [id number] [place] [address] 12 Aug, 2014 [facility] [address] [facility] [id number] [place] [address] 14 Jun, 2014 [facility] [address] [facility] [id number] [place] [address] Jun, [facility] [address] [id number] [place] [address] Mar, [facility] [address] [id number] [place] [address] Mar, [facility] [address] [id number] [place] [address] Oct, [facility] [address] [id number] [place] [address] Sep, [facility] [address] [id number] [place] [address] Sep, [facility] [address] [id number] [place] [address] Aug, [facility] [address] [id number] [place] [address] Aug, [facility] [address] [id number] [place] [address] Aug, [facility] [address] [facility] [id number] [place] [id number] Aug, [facility] [address] [facility] [id number] [place] [address] Aug, [facility] [address] [id number] [place] [address] Aug, [facility] [address] [id number] [place] [address] Aug, [facility] [address] [id number] [place] [address] Aug, [facility] [address] [id number] [place] [address] Aug, [facility] [address] [id number] [place] [address] Aug, [facility] [address] [id number] [place] [address] Aug, [facility] [address] [id number] [place] [address] Aug, [facility] [address] [id number] [place] [address] Aug, [facility] [address] [id number] [place] [address] Aug, [facility] [address] [id number] [place] [address] July, [facility] [address] [id number] [place] [address] July, [facility] [address] [id number] [place] [address] July, [facility] [address] [id number] [place] [address] July, [facility] [address] [id number] [place] [address] July, [facility] [address] [id number] [place] [address] Apr, [facility] [address] [id number] [place] [address] Feb, [facility] [address] [id number] [place] [address] Feb, [facility] [address] [id number] [place] [address] Jan, [facility] [address] [id number] [place] [address] Jan, [facility] [address] [id number] [place] [address] Aug, [facility] [address] [id number] [place] [address] Jun, [facility] [address] [facility] [id number] [place] [address] Jun, IMMUNIZATIONS No Known Immunizations SOCIAL HISTORY Never Assessed REASON FOR VISIT PLAN OF CARE VITAL SIGNS Height 66 in 2013-07-17 Weight 174.3 lbs 2013-07-17 Temperature 99.6 degrees Fahrenheit 2013-07-17 Heart Rate 78 bpm 2013-07-17 Respiratory Rate 20 2013-07-17 Blood pressure systolic 120 mmHg 2013-07-17 Blood pressure diastolic 78 mmHg 2013-07-17 MEDICATIONS Unknown Medications RESULTS No Results PROCEDURES Procedure Date Ordered Result Body Site URINE CULTURE/COLONY COUNT July 17, 2013 URINALYSIS, AUTO, W/O SCOPE July 17, 2013 INSTRUCTIONS MEDICATIONS ADMINISTERED No Known Medications [...]
--- OUTSIDE RECORDS SUMMARY | 2019-05-26 14:39 | XMS REPORT ---
Author Author Tara Jerome Organization [facility] Address [address] [place] [address] Care Team Providers Care Staff Writer Name Role Phone TIARA Jerome Unavailable PROBLEMS Type Condition ICD9-CM Code OWT51-BH Code Onset Dates Condition S tatus SNOMED Code Problem Non-compliant behavior R46.89 Active 443809624 Problem Non compliance w medication regimen Z91.14 Active 451670884 Problem Tobacco abuse Z72.0 Active 228830 000 Problem Tobacco abuse counseling Z71.6 Activ e 232387066 Problem Essential hypertension I10 Active 96329691 Problem Elevated LDL cholesterol level E78.00 Active 154692445 Problem Hep C w/o coma, chronic B18.2 Active 980713619 Problem Methamphetamine abuse F15.10 Active 266903561 ALLERGIES No Information ENCOUNTERS Encounter Location Date Diagnosis [facility] [address] [id number] Jan, [facility] [address] [id number] [place] [address] Dec, [facility] [address] [id number] Nov, Dental examination Z01.20 [facility] [address] [id number] Oct, Dental examination Z01.20 [facility] [address] [id number] Oct, Dental examination Z01.20 [facility] [address] [facility] [place] [address] Oct, [facility] [address] [facility] [id number] [place] [address] July, Contact dermatitis, unspecif ied contact dermatitis type, unspecified trigger L25.9 [facility] [address] [address] Jun, Pre-diabetes R73.03 [place] [address] [address] Jun, Essential hypertension I10 ; Pre-diabete s R73.03 ; Elevated LDL cholesterol level E78.00 ; Hep C w/o coma, chronic B18.2 ; Non-compliant behavior R46.89 ; Methamphetamine abuse F15.10 ; Tobacco abuse Z72.0 ; Tobacco abuse counseling Z71.6 and Non compliance w medication regimen Z91.14 [place] [address] [address] Mar, [place] [address] [address] Nov, [facility] [address] [facility] [id number] [place] [address] July, Allergic contact dermatitis due to plants, except food L23.7 [place] [address] [address] July, Essential hypertension I10 ; Pre-diabete s R73.03 and Elevated LDL cholesterol level E78.00 [place] [address] [address] May, [place] [address] [address] Apr, [facility] [address] [address] Mar, History of hypertension Z86.79 ; History of hepatitis Z86.19 ; Substance abuse F19.10 ; Non compliance w medication regimen Z91.14 and Non- compliant behavior R46.89 [place] [address] [address] Feb, Pre-diabetes R73.09 [place] [address] [address] Feb, Bacterial conjunctivitis of right eye H1 0.[address] [address] Jun, Pre-diabetes R73.09 ; History of hepatit is Z86.19 and Substance abuse F19.[address] [address] Jun, [address] [address] Jun, Routine health maintenance Z00.[address] [address] 30 May, [address] [address] 17 May, 2015 History of hypertension Z86.79 ; History of hepatitis Z86.19 and Illicit drug use F19.[address] [address] 10 May, 2015 Routine health maintenance Z00.00 ; Hist ory of gestational diabetes Z86.32 ; History of hypertension Z86.79 ; History of hepatitis Z86.19 and Substance abuse F19.10 [facility] [address] [id number] Nov, Dental examination V72.2 [facility] [address] [id number] Nov, Encounter for dental examination V72.[address] [address] 24 Aug, 2014 Routine gynecological examination V72.31 ; Pap test, as part of routine gynecological examination V76.2 ; Screen for STD (sexually transmitted disease) V74.5 ; Breast cancer screening V76.10 ; Vaginal odor 625.8 and Tobacco abuse 305.[address] [address] 16 Aug, 2014 Vaginal discharge 623.5 and Vaginal odor 625.[address] [id number] [place] [address] 12 Aug, 2014 [facility] [address] [facility] [id number] [place] [address] 14 Jun, 2014 [facility] [address] [facility] [id number] [place] [address] Jun, [facility] [address] [id number] [place] [address] Mar, [facility] [address] [id number] [place] [address] Mar, [facility] [address] [id number] [place] [address] Oct, [facility] [address] [id number] [place] [address] Sep, [facility] [address] [id number] [place] [address] Sep, [facility] [address] [id number] [place] [address] Aug, [facility] [address] [id number] [place] [address] Aug, [facility] [address] [id number] [place] [address] Aug, [facility] [address] [facility] [id number] [place] [id number] Aug, [facility] [address] [facility] [id number] [place] [address] Aug, [facility] [address] [id number] [place] [address] Aug, [facility] [address] [id number] [place] [address] Aug, [facility] [address] [id number] [place] [address] Aug, [facility] [address] [id number] [place] [address] Aug, [facility] [address] [id number] [place] [address] Aug, [facility] [address] [id number] [place] [address] Aug, [facility] [address] [id number] [place] [address] Aug, [facility] [address] [id number] [place] [address] Aug, [facility] [address] [id number] [place] [address] Aug, [facility] [address] [id number] [place] [address] July, [facility] [address] [id number] [place] [address] July, [facility] [address] [id number] [place] [address] July, [facility] [address] [id number] [place] [address] July, [facility] [address] [id number] [place] [address] July, [facility] [address] [id number] [place] [address] Apr, [facility] [address] [id number] [place] [address] Feb, [facility] [address] [id number] [place] [address] Feb, [facility] [address] [id number] [place] [address] Jan, [facility] [address] [id number] [place] [address] Jan, [facility] [address] [id number] [place] [address] Aug, [facility] [address] [id number] [place] [address] Jun, [facility] [address] [facility] [id number] [place] [address] Jun, IMMUNIZATIONS No Known Immunizations SOCIAL HISTORY Never Assessed REASON FOR VISIT PLAN OF CARE VITAL SIGNS Height 66 in 2013-08-08 Weight 173.8 lbs 2013-08-08 Temperature 97.2 degrees Fahrenheit 2013-08-08 Heart Rate 92 bpm 2013-08-08 Respiratory Rate 22 2013-08-08 Blood pressure systolic 132 mmHg 2013-08-08 Blood pressure diastolic 90 mmHg 2013-08-08 MEDICATIONS Unknown Medications RESULTS No Results PROCEDURES Procedure Date Ordered Result Body Site URINE CULTURE/COLONY COUNT August 08, 2013 URINALYSIS, AUTO, W/O SCOPE August 08, 2013 INSTRUCTIONS MEDICATIONS ADMINISTERED No Known Medications [...]
--- OUTSIDE RECORDS SUMMARY | 2019-05-26 14:39 | XMS REPORT ---
Author Author Tara Milligan Doctor Organization [facility] Address Unknown Phone Unavailable Care Team Providers Care Dental Hygiene Teacher Name Role Phone Migration, Doctor Unavailable Unavailable PROBLEMS Type Condition ICD9-CM Code JVS94-CO Code Onset Dates Condition S tatus SNOMED Code Problem Non-compliant behavior R46.89 Active 244888146 Problem Non compliance w medication regimen Z91.14 Active 141204621 Problem Tobacco abuse Z72.0 Active 381952 000 Problem Tobacco abuse counseling Z71.6 Activ e 124173875 Problem Essential hypertension I10 Active 03271258 Problem Elevated LDL cholesterol level E78.00 Active 215915007 Problem Hep C w/o coma, chronic B18.2 Active 320696938 Problem Methamphetamine abuse F15.10 Active 885729237 ALLERGIES No Information ENCOUNTERS Encounter Location Date Diagnosis [facility] [address] [id number] Jan, [facility] [address] [address] Dec, [facility] [address] [id number] Nov, Dental examination Z01.20 [facility] [address] [id number] Oct, Dental examination Z01.20 [facility] [address] [id number] Oct, Dental examination Z01.20 [facility] [address] [id number] [place] [address] Oct, [facility] [address] [facility] [id number] [place] [address] July, Contact dermatitis, unspecif ied contact dermatitis type, unspecified trigger L25.9 [facility] [address] [address] Jun, Pre-diabetes R73.03 [facility] [address] [address] Jun, Essential hypertension I10 ; Pre-diabete s R73.03 ; Elevated LDL cholesterol level E78.00 ; Hep C w/o coma, chronic B18.2 ; Non-compliant behavior R46.89 ; Methamphetamine abuse F15.10 ; Tobacco abuse Z72.0 ; Tobacco abuse counseling Z71.6 and Non compliance w medication regimen Z91.14 [place] [address] [address] Mar, [place] [address] [address] Nov, [facility] [address] [facility] [id number] [address] [place] [address] July, Allergic contact dermatitis due to plants, except food L23.[address] [address] July, Essential hypertension I10 ; Pre-diabete s R73.03 and Elevated LDL cholesterol level E78.00 [place] [address] [address] May, [place] [address] [address] Apr, [place] [address] [address] Mar, History of hypertension Z86.79 ; History of hepatitis Z86.19 ; Substance abuse F19.10 ; Non compliance w medication regimen Z91.14 and Non- compliant behavior R46.89 [place] [address] [address] Feb, Pre-diabetes R73.09 [place] [address] [address] 15 Feb, 2016 Bacterial conjunctivitis of right eye H1 0.[address] [place] [address] Jun, Pre-diabetes R73.09 ; History of hepatit is Z86.19 and Substance abuse F19.10 [facility] [address] [address] Jun, [facility] [address] [address] 18 Jun, 2015 Routine health maintenance Z00.00 [facility] [address] [address] 30 May, 2015 [facility] [address] [address] 17 May, 2015 History of hypertension Z86.79 ; History of hepatitis Z86.19 and Illicit drug use F19.90 [facility] [address] [address] 10 May, 2015 Routine health maintenance Z00.00 ; Hist ory of gestational diabetes Z86.32 ; History of hypertension Z86.79 ; History of hepatitis Z86.19 and Substance abuse F19.10 [facility] [address] [id number] Nov, Dental examination V72.2 [facility] [address] [id number] Nov, Encounter for dental examination V72.[address] [address] 24 Aug, 2014 Routine gynecological examination V72.31 ; Pap test, as part of routine gynecological examination V76.2 ; Screen for STD (sexually transmitted disease) V74.5 ; Breast cancer screening V76.10 ; Vaginal odor 625.8 and Tobacco abuse 305.[address] [address] 16 Aug, 2014 Vaginal discharge 623.5 and Vaginal odor 625.[address] [address] Aug, [place] [address] [place] [address] 14 Jun, 2014 [facility] [address] [facility] [id number] [place] [address] Jun, [facility] [address] [id number] [place] [address] Mar, [facility] [address] [id number] [place] [address] Mar, [facility] [address] [id number] [place] [address] Oct, [facility] [address] [id number] [place] [address] Sep, [facility] [address] [id number] [place] [address] Sep, [facility] [address] [id number] [place] [address] Aug, [facility] [address] [id number] [place] [address] Aug, [facility] [address] [facility] [id number] [place] [address] Aug, [facility] [address] [facility] [id number] [place] [id number] Aug, [facility] [address] [id number] [place] [address] Aug, [facility] [address] [id number] [place] [address] Aug, [facility] [address] [facility] [id number] [place] [address] Aug, [facility] [address] [id number] [place] [address] Aug, [facility] [address] [id number] [place] [address] Aug, [facility] [address] [id number] [place] [address] Aug, [facility] [address] [id number] [place] [address] Aug, [facility] [address] [id number] [place] [address] Aug, [facility] [address] [id number] [place] [address] Aug, [facility] [address] [id number] [place] [address] Aug, [facility] [address] [id number] [place] [address] July, [facility] [address] [id number] [place] [address] July, [facility] [address] [id number] [place] [address] July, [facility] [id number] [place] [address] July, [facility] [address] [id number] [place] [address] July, [facility] [address] [id number] [place] [address] Apr, [facility] [address] [id number] [place] [address] Feb, [facility] [address] [id number] [place] [address] Feb, [facility] [address] [id number] [place] [address] Jan, [facility] [address] [id number] [place] [address] Jan, [facility] [address] [id number] [place] [address] Aug, [facility] [address] [id number] [place] [address] Jun, [facility] [address] [id number] [place] [address] Jun, IMMUNIZATIONS No Known Immunizations SOCIAL HISTORY [...]
--- OUTSIDE RECORDS SUMMARY | 2019-05-26 14:39 | XMS REPORT ---
Author Author Tara Jerome Organization [facility] Address [address] [place] [address] Care Team Providers Care Fur Cutting Machine Operator Name Role Phone TIARA Jerome Unavailable PROBLEMS Type Condition ICD9-CM Code BQY35-GL Code Onset Dates Condition S tatus SNOMED Code Problem Non-compliant behavior R46.89 Active 348636487 Problem Non compliance w medication regimen Z91.14 Active 503335333 Problem Tobacco abuse Z72.0 Active 934733 000 Problem Tobacco abuse counseling Z71.6 Activ e 645310971 Problem Essential hypertension I10 Active 96971927 Problem Elevated LDL cholesterol level E78.00 Active 558299129 Problem Hep C w/o coma, chronic B18.2 Active 704388938 Problem Methamphetamine abuse F15.10 Active 499645103 ALLERGIES No Information ENCOUNTERS Encounter Location Date Diagnosis [facility] [address] [id number] Jan, [facility] [address] [id number] [place] [address] Dec, [facility] [address] [id number] Nov, Dental examination Z01.20 [facility] [address] [id number] Oct, Dental examination Z01.20 [facility] [address] [id number] Oct, Dental examination Z01.20 [facility] [address] [facility] [place] [address] Oct, [facility] [address] [facility] [id number] [place] [address] July, Contact dermatitis, unspecif ied contact dermatitis type, unspecified trigger L25.9 [facility] [address] [address] Jun, Pre-diabetes R73.03 [place] [address] [address] Jun, Essential hypertension I10 ; Pre-diabete s R73.03 ; Elevated LDL cholesterol level E78.00 ; Hep C w/o coma, chronic B18.2 ; Non-compliant behavior R46.89 ; Methamphetamine abuse F15.10 ; Tobacco abuse Z72.0 ; Tobacco abuse counseling Z71.6 and Non compliance w medication regimen Z91.14 [place] [address] [address] Mar, [place] [address] [address] Nov, [facility] [address] [facility] [id number] [place] [address] July, Allergic contact dermatitis due to plants, except food L23.7 [place] [address] [address] July, Essential hypertension I10 ; Pre-diabete s R73.03 and Elevated LDL cholesterol level E78.00 [place] [address] [address] May, [place] [address] [address] Apr, [facility] [address] [address] Mar, History of hypertension Z86.79 ; History of hepatitis Z86.19 ; Substance abuse F19.10 ; Non compliance w medication regimen Z91.14 and Non- compliant behavior R46.89 [place] [address] [address] Feb, Pre-diabetes R73.09 [place] [address] [address] Feb, Bacterial conjunctivitis of right eye H1 0.[address] [address] Jun, Pre-diabetes R73.09 ; History of hepatit is Z86.19 and Substance abuse F19.[address] [address] Jun, [address] [address] Jun, Routine health maintenance Z00.[address] [address] 30 May, [address] [address] 17 May, 2015 History of hypertension Z86.79 ; History of hepatitis Z86.19 and Illicit drug use F19.[address] [address] 10 May, 2015 Routine health maintenance Z00.00 ; Hist ory of gestational diabetes Z86.32 ; History of hypertension Z86.79 ; History of hepatitis Z86.19 and Substance abuse F19.10 [facility] [address] [id number] Nov, Dental examination V72.2 [facility] [address] [id number] Nov, Encounter for dental examination V72.[address] [address] 24 Aug, 2014 Routine gynecological examination V72.31 ; Pap test, as part of routine gynecological examination V76.2 ; Screen for STD (sexually transmitted disease) V74.5 ; Breast cancer screening V76.10 ; Vaginal odor 625.8 and Tobacco abuse 305.[address] [address] 16 Aug, 2014 Vaginal discharge 623.5 and Vaginal odor 625.[address] [id number] [place] [address] 12 Aug, 2014 [facility] [address] [facility] [id number] [place] [address] 14 Jun, 2014 [facility] [address] [facility] [id number] [place] [address] Jun, [facility] [address] [id number] [place] [address] Mar, [facility] [address] [id number] [place] [address] Mar, [facility] [address] [id number] [place] [address] Oct, [facility] [address] [id number] [place] [address] Sep, [facility] [address] [id number] [place] [address] Sep, [facility] [address] [id number] [place] [address] Aug, [facility] [address] [id number] [place] [address] Aug, [facility] [address] [id number] [place] [address] Aug, [facility] [address] [facility] [id number] [place] [id number] Aug, [facility] [address] [facility] [id number] [place] [address] Aug, [facility] [address] [id number] [place] [address] Aug, [facility] [address] [id number] [place] [address] Aug, [facility] [address] [id number] [place] [address] Aug, [facility] [address] [id number] [place] [address] Aug, [facility] [address] [id number] [place] [address] Aug, [facility] [address] [id number] [place] [address] Aug, [facility] [address] [id number] [place] [address] Aug, [facility] [address] [id number] [place] [address] Aug, [facility] [address] [id number] [place] [address] Aug, [facility] [address] [id number] [place] [address] July, [facility] [address] [id number] [place] [address] July, [facility] [address] [id number] [place] [address] July, [facility] [address] [id number] [place] [address] July, [facility] [address] [id number] [place] [address] July, [facility] [address] [id number] [place] [address] Apr, [facility] [address] [id number] [place] [address] Feb, [facility] [address] [id number] [place] [address] Feb, [facility] [address] [id number] [place] [address] Jan, [facility] [address] [id number] [place] [address] Jan, [facility] [address] [id number] [place] [address] Aug, [facility] [address] [facility] [place] [address] Jun, [facility] [address] [facility] [id number] [place] [address] Jun, IMMUNIZATIONS No Known Immunizations SOCIAL HISTORY [...]
--- OUTSIDE RECORDS SUMMARY | 2019-05-26 14:39 | XMS REPORT ---
Author Author Tara Jerome Organization [facility] Address [address] [place] [address] Care Team Providers Care Magnetic Resonance Technologist Name Role Phone TIARA Jerome Unavailable PROBLEMS Type Condition ICD9-CM Code XQH81-IC Code Onset Dates Condition S tatus SNOMED Code Problem Non-compliant behavior R46.89 Active 037440467 Problem Non compliance w medication regimen Z91.14 Active 411082004 Problem Tobacco abuse Z72.0 Active 500106 000 Problem Tobacco abuse counseling Z71.6 Activ e 314410573 Problem Essential hypertension I10 Active 84915346 Problem Elevated LDL cholesterol level E78.00 Active 015783624 Problem Hep C w/o coma, chronic B18.2 Active 106671022 Problem Methamphetamine abuse F15.10 Active 902091277 ALLERGIES No Information ENCOUNTERS Encounter Location Date Diagnosis [facility] [address] [id number] Jan, [facility] [address] [id number] [place] [address] Dec, [facility] [address] [id number] Nov, Dental examination Z01.20 [facility] [address] [id number] Oct, Dental examination Z01.20 [facility] [address] [id number] Oct, Dental examination Z01.20 [facility] [address] [facility] [place] [address] Oct, [facility] [address] [facility] [id number] [place], [place] [address] July, Contact dermatitis, unspecif ied contact dermatitis type, unspecified trigger L25.9 [facility] [address] [address] Jun, Pre-diabetes R73.03 [place] [address] [address] Jun, Essential hypertension I10 ; Pre-diabete s R73.03 ; Elevated LDL cholesterol level E78.00 ; Hep C w/o coma, chronic B18.2 ; Non-compliant behavior R46.89 ; Methamphetamine abuse F15.10 ; Tobacco abuse Z72.0 ; Tobacco abuse counseling Z71.6 and Non compliance w medication regimen Z91.14 [place] [address] [address] Mar, [place] [address] [address] Nov, [facility] [address] [facility] [id number] [place] [address] July, Allergic contact dermatitis due to plants, except food L23.7 [place] [address] [address] July, Essential hypertension I10 ; Pre-diabete s R73.03 and Elevated LDL cholesterol level E78.00 [place] [address] [address] May, [place] [address] [address] Apr, [facility] [address] [address] Mar, History of hypertension Z86.79 ; History of hepatitis Z86.19 ; Substance abuse F19.10 ; Non compliance w medication regimen Z91.14 and Non- compliant behavior R46.89 [place] [address] [address] Feb, Pre-diabetes R73.09 [place] [address] [address] Feb, Bacterial conjunctivitis of right eye H1 0.[address] [address] Jun, Pre-diabetes R73.09 ; History of hepatit is Z86.19 and Substance abuse F19.[address] [address] Jun, [address] [address] Jun, Routine health maintenance Z00.[address] [address] 30 May, [address] [address] 17 May, 2015 History of hypertension Z86.79 ; History of hepatitis Z86.19 and Illicit drug use F19.[address] [address] 10 May, 2015 Routine health maintenance Z00.00 ; Hist ory of gestational diabetes Z86.32 ; History of hypertension Z86.79 ; History of hepatitis Z86.19 and Substance abuse F19.10 [facility] [address] [id number] Nov, Dental examination V72.2 [facility] [address] [id number] Nov, Encounter for dental examination V72.[address] [address] 24 Aug, 2014 Routine gynecological examination V72.31 ; Pap test, as part of routine gynecological examination V76.2 ; Screen for STD (sexually transmitted disease) V74.5 ; Breast cancer screening V76.10 ; Vaginal odor 625.8 and Tobacco abuse 305.[address] [address] 16 Aug, 2014 Vaginal discharge 623.5 and Vaginal odor 625.[address] [id number] [place] [address] 12 Aug, 2014 [facility] [address] [facility] [id number] [place] [address] 14 Jun, 2014 [facility] [address] [facility] [id number] [place] [address] Jun, [facility] [address] [id number] [place] [address] Mar, [facility] [address] [id number] [place] [address] Mar, [facility] [address] [id number] [place] [address] Oct, [facility] [address] [id number] [place] [address] Sep, [facility] [address] [id number] [place] [address] Sep, [facility] [address] [id number] [place] [address] Aug, [facility] [address] [id number] [place] [address] Aug, [facility] [address] [id number] [place] [address] Aug, [facility] [address] [facility] [id number] [place] [id number] Aug, [facility] [address] [facility] [id number] [place] [address] Aug, [facility] [address] [id number] [place] [address] Aug, [facility] [address] [id number] [place] [address] Aug, [facility] [address] [id number] [place] [address] Aug, [facility] [address] [id number] [place] [address] Aug, [facility] [address] [id number] [place] [address] Aug, [facility] [address] [id number] [place] [address] Aug, [facility] [address] [id number] [place] [address] Aug, [facility] [address] [id number] [place] [address] Aug, [facility] [address] [id number] [place] [address] Aug, [facility] [address] [id number] [place] [address] July, [facility] [address] [id number] [place] [address] July, [facility] [address] [id number] [place] [address] July, [facility] [address] [id number] [place] [address] July, [facility] [address] [id number] [place] [address] July, [facility] [address] [id number] [place] [address] Apr, [facility] [address] [id number] [place] [address] Feb, [facility] [address] [id number] [place] [address] Feb, [facility] [address] [id number] [place] [address] Jan, [facility] [address] [id number] [place] [address] Jan, [facility] [address] [id number] [place] [address] Aug, [facility] [address] [id number] [place] [address] Jun, [facility] [address] [facility] [id number] [place] [address] Jun, IMMUNIZATIONS No Known Immunizations SOCIAL HISTORY [...]
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
== END 2019-05-26 14:06 | disposition home or self-care (01) ==
LOC: EDUNIT# 13:08 → ER 13:10
DX: S20.211A Contusion of right front wall of thorax, initial encounter (principal); S43.402A Unspecified sprain of left shoulder joint, initial encounter; X50.0XXA Overexertion from strenuous movement or load, initial encounter; F17.210 Nicotine dependence, cigarettes, uncomplicated; F15.90 Other stimulant use, unspecified, uncomplicated; E11.9 Type 2 diabetes mellitus without complications
CPT/HCPCS: 71101; 73030

== ENCOUNTER → 2021-11-01 | Emergency (ER) | payer SELFPAY ==
[~2021-11-01] VITALS: Ht 167.7 cm; Wt 77.1 kg
[~2021-11-01] MED LIST changes: +IBUPROFEN 800 MG (MOTRIN) TAB PO ONE; +ONDA4TAB11 PO; +RX-NIRMATRELVIR/RITONAVIR (PAXLOVID) #30 TABS PO SCH
[2021-11-01 18:38] VITALS: BP 152/110
--- NOTE | 2021-11-01 19:05 | ED Cough/URI ---
General Chief Complaint: COVID19 Suspect/Confirmed Stated Complaint: BODYACHES - SORE THROAT - FEVER - COUGH Nursing Triage Note: PT TO RM 10 WITH CC OF SOAR THROAT, BODYACHES, FEVER, AND NO APPETITE SINCE TODAY. PT REPORTS IS SICK AND BELIEVES HE HAS COVID. PT STATES "MY SPIT IN MY FACE AND NOW IM FEELING SICK." PT REPORTS METH USE 3-4 HOURS PRIOR TO ARRIVAL IN ED. Source: patient Exam Limitations: no limitations History of Present Illness Date Seen by Provider: Nov 01, 2021 Time Seen by Provider: 18:36 Initial Comments Patient to the ER by private conveyance chief complaint she is having 1 day of body aches, malaise, cough and a fever of 98. She used last methamphetamines about 3 or 4 hours ago. She says her had COVID for the last 3 to 4 days and he was being mean to her and spitting in her face. She has talked about going to a safe house and or just going back to live with her sister in [place] and feels safe at home. She think she has COVID. She has a history of smoking but denies history of COPD. She has prediabetes. She also has a history of hepatitis A, B and C untreated. Allergies and Home Medications Allergies Coded Allergies: Penicillins (Verified Adverse Reaction, Mild, 07/17/11) Patient Home Medication List Home Medication List Reviewed: Yes No Active Prescriptions or Reported Meds Review of Systems Review of Systems Constitutional: No chills, No diaphoresis; malaise EENTM: No ear discharge, No ear pain Respiratory: cough; No short of breath Cardiovascular: No chest pain, No palpitations Gastrointestinal: No abdominal pain, No constipation Genitourinary: No discharge, No dysuria Musculoskeletal: No back pain, No joint pain Past Zwwiopp-Ynmucu-Nmbeiv Hx Patient Social History Tobacco Use?: Yes Tobacco type used: Cigarettes Smoking Status: Current Everyday Smoker Substance use?: Yes Substance type: Amphetamines Alcohol Use?: No Immunizations Up To Date Tetanus Booster (TDap): Unknown PED Vaccines UTD: Yes Past Medical History Surgery/Hospitalization HX: DM, HEP Surgeries: Yes Gallbladder Respiratory: No Cardiac: No Neurological: No Reproductive Disorders: No 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 0oz. 74.408271ag; 27.00 BMI Method:Stated General Appearance: WD/WN, no apparent distress HEENT: normal ENT inspection, pharynx normal Neck: full range of motion, normal inspection Respiratory: lungs clear, normal breath sounds, no respiratory distress, no accessory muscle use Cardiovascular: normal peripheral pulses, regular rate, rhythm, tachycardia (114) Gastrointestinal: non tender, soft Neurologic/Psychiatric: alert, normal mood/affect, oriented x 3 Progress/Results/Core Measures Suspected Sepsis SIRS Temperature: Pulse: 117 Respiratory Rate: 22 Blood Pressure 152 /110 Mean: 124 Results/Orders Lab Results Laboratory Tests Test 11/01/21 18:42 Range/Units My Orders Orders - ALON PELAEZ Covid 19 Inhouse Test (11/01/21 18:31) Influenza A And B By Pcr (11/01/21 18:31) Ibuprofen Tablet (Motrin Tablet) (11/01/21 19:15) Medications Given in ED Current Medications Medications Dose Ordered Sig/Sd Route Start Time Stop Time Status Last Admin Dose Admin Ibuprofen 800 mg ONCE ONCE PO 11/01/21 19:15 11/01/21 19:16 DC 11/01/21 19:15 800 MG Vital Signs/I&O 11/01/21 18:38 Temp 37.4 Pulse 117 Resp 22 B/P (MAP) 152/110 (124) Pulse Ox 97 O2 Delivery Room Air Capillary Refill : Less Than 3 Seconds Blood Pressure Mean: 124 Progress Note : Time: 19:12 Progress Note The tachycardia is explained by the recent methamphetamine use. We did discuss doing some labs to check for rhabdomyolysis and she declined at this time. She is certain she has COVID. Based on her recent exposure to COVID it would be reasonable to give her this assumption. Without knowing her kidney function however I would be remiss to give her Paxlovid. Symptomatic medications would probably be more than appropriate. She has a plan to go stay with her sister or go to the safe house if she feels unsafe but right now she claims she feels safe at home. Departure Impression Primary Impression: COVID-19 Disposition: 01 HOME, SELF-CARE Condition: Stable Departure-Patient Inst. Decision time for Depature: 19:32 Referrals: [facility] ([place]/Family) Primary Care Physician Patient Instructions: COVID-19 (DC) Add. Discharge Instructions: Ibuprofen 800 mg every 8 hours as needed for body aches, fever or headache. Drink lots of fluids. Zofran 1 tablet under the tongue every 6 hours as needed for nausea and/or vomiting. If you are still having nausea 30 minutes later then you can take a second tablet. Stay home for the next week. When you are fever free for 24 hours then you can go back to work. If you are having severe shortness of air resulting in oxygen saturations below 90% while at rest or chest pain you may return to the ER for further evaluation. Paxlovid twice a day as described for 5 days to reduce the length and severity of COVID-19. All discharge instructions reviewed with patient and/or family. Voiced understanding. Scripts Ondansetron (Ondansetron Odt) 4 Mg Tab.rapdis 4 MG PO Q6H PRN for NAUSEA/VOMITING, #8 TAB 0 Refills Prov: ALON PELAEZ 11/01/21 ALON PELAEZ Nov 01, 2021 19:05
== END ==
LOC: EDUNIT# 18:30 → ER 18:32
DX: U07.1 COVID-19 (principal); F17.210 Nicotine dependence, cigarettes, uncomplicated; Z28.310 Unvaccinated for COVID-19
CPT/HCPCS: 87636; 99283

== ENCOUNTER 2021-11-06 11:39 | Emergency (ER) | payer SELFPAY ==
[~2021-11-06 11:39] MED LIST changes: -IBUPROFEN 800 MG (MOTRIN) TAB PO ONE; -RX-NIRMATRELVIR/RITONAVIR (PAXLOVID) #30 TABS PO SCH
[2021-11-06] MEDS ORDERED: CLIN-144 PO (17:56)
[2021-11-06] MEDS ORDERED: CEFD300C3 PO (17:56)
== END 2021-11-06 11:59 | disposition left against medical advice (07) ==
LOC: EDUNIT# 11:39 → ER 11:42
DX: R22.0 Localized swelling, mass and lump, head (principal)

== ENCOUNTER 2021-11-06 16:43 | Emergency (ER) | payer SELFPAY ==
[~2021-11-06] VITALS: Ht 167 cm; Wt 77.0 kg
[2021-11-06] MEDS ORDERED: KETOROLAC 30 MG/ML VIAL IM ONE (17:45)
--- NOTE | 2021-11-06 17:54 | ED EENT ---
History of Present Illness General Chief Complaint: Facial Problems Stated Complaint: SWOLLEN FACE Nursing Triage Note: PT AMB TO RM 6 PT CO OF FACIAL SWELLING, PT HAS R SIDED UNDER EYE BRUISING, R SIDED NOSE AND MOUTH SWELLING, PT STATES COVID+ 11/01/21 AND HAS BAD TOOTH R UPPER JAW. Source: patient Exam Limitations: no limitations History of Present Illness Date Seen by Provider: Nov 06, 2021 Time Seen by Provider: 17:48 Allergies and Home Medications Allergies Coded Allergies: Penicillins (Verified Adverse Reaction, Mild, 07/17/11) Patient Home Medication List Ondansetron (Ondansetron Odt) 4 Mg Tab.rapdis, 4 MG PO Q6H PRN for NAUSEA/VOMITING Prescribed by: ALON PELAEZ on 11/01/211937 Past Fjxsvrq-Gevbwi-Fyoyjl Hx Patient Social History Tobacco Use?: Yes Tobacco type used: Cigarettes Smoking Status: Current Everyday Smoker Substance use?: Yes Substance type: Methamphetamine Substance frequency: Couple times a week Alcohol Use?: No Pt feels they are or have been: No Immunizations Up To Date Tetanus Booster (TDap): Unknown PED Vaccines UTD: Yes Past Medical History Surgery/Hospitalization HX: DM, HEP Surgeries: Yes Gallbladder Respiratory: No Cardiac: No Neurological: No 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 0oz. 74.327016la; 27.00 BMI Method:Stated Progress/Results/Core Measures Results/Orders My Orders Orders - EVELIA RAY APRN Ketorolac Injection (Toradol Injection) (11/06/21 17:45) Vital Signs/I&O 11/06/21 16:55 Temp 36.3 Pulse 93 Resp 16 B/P (MAP) 149/94 (112) Pulse Ox 96 Blood Pressure Mean: 112 Departure Impression Primary Impression: Periorbital cellulitis of right eye Disposition: 01 HOME, SELF-CARE Condition: Stable Departure-Patient Inst. Decision time for Depature: 17:50 Referrals: [facility] (PCP/Family) Primary Care Physician Patient Instructions: Preseptal Cellulitis ED Add. Discharge Instructions: Plan: 1. Take your antibiotics as directed and make sure you complete full course even if you begin to feel better. 2. May take Tylenol or Ibuprofen as needed for pain/swelling per package. 3. If your symptoms worsen over the next 24 hours you need to return to the ER as you may require hospital admission for treatment. 4. Return to the ER for any new, concerning, worsening symptoms. All discharge instructions reviewed with patient and/or family. Voiced understanding. Scripts Cefdinir (Cefdinir) 300 Mg Capsule 300 MG PO BID for 7 Days, #14 CAP 0 Refills Prov: EVELIA RAY TITLE MANAGER 11/06/21 Clindamycin HCl (Clindamycin HCl) 300 Mg Capsule 300 MG PO TID for 7 Days, #21 CAP 0 Refills Prov: EVELIA RAY TITLE MANAGER 11/06/21 EVELIA RAY TITLE MANAGER Nov 06, 2021 17:53
[2021-11-06] MEDS ORDERED: CLIN-144 PO (17:56)
[2021-11-06] MEDS ORDERED: CEFD300C3 PO (17:56)
[2021-11-06] MEDS ORDERED: CEFDINIR 300 MG (OMNICEF) CAP PO ONE (18:00)
[2021-11-06] MEDS ORDERED: CLINDAMYCIN 150 MG (CLEOCIN) CAP PO ONE (18:00)
[2021-11-06 18:08] VITALS: BP 149/94
== END 2021-11-06 18:08 | disposition home or self-care (01) ==
LOC: EDUNIT# 16:43 → ER 16:45
DX: L03.213 Periorbital cellulitis (principal); F17.210 Nicotine dependence, cigarettes, uncomplicated; Z88.0 Allergy status to penicillin; Z86.16 Personal history of COVID-19
CPT/HCPCS: 99284

== ENCOUNTER 2021-11-14 19:32 | Emergency (ER) | payer SELFPAY ==
[~2021-11-14 19:32] MED LIST changes: +CEFD300C3 PO; +CLIN-144 PO
== END 2021-11-14 20:10 | disposition left against medical advice (07) ==
LOC: EDUNIT# 19:32 → ER 19:33
DX: R06.02 Shortness of breath (principal)

== ENCOUNTER 2022-12-16 11:43 | Emergency (ER) | payer SELFPAY | END 2022-12-16 11:54 | disposition left against medical advice (07) | LOC: EDUNIT# 11:43 → ER 11:46 | DX: S99.912A Unspecified injury of left ankle, initial encounter (principal); X58.XXXA Exposure to other specified factors, initial encounter ==